=== PATIENT | female | born 1935 ===

== ENCOUNTER 2017-12-11 00:05 | Inpatient (IN) | payer MEDICARE, MEDICAID ==
--- NOTE | 2017-12-11 00:16 | C.PDOC ---
History Of Present Illness patient presents with chest pain and sob worsening over the last 5 days. Had returned from [facility] 2 months ago. Speaking in complete sentences. No f/c/n/v. Time Seen by Provider: 12/11/17 00:15 Chief Complaint (Nursing): Chest Pain History Per: Patient, Family History/Exam Limitations: no limitations Onset/Duration Of Symptoms: Days (5) Current Symptoms Are (Timing): Still Present Context: Other Severity: Moderate Pain Scale Rating Of: 4 Quality: Aching, Tightness Associated Symptoms: Dyspnea (mild). denies: Nausea Modifying Factors: None Exacerbating Factors: None Alleviating Factors: None Recent travel outside of the [place]: Yes ([facility] ) Additional History Per: Family Past Medical History Reviewed: Historical Data, Nursing Documentation, Vital Signs Vital Signs: Last Vital Signs Temp 98.4 F 12/11/17 00:15 Pulse 117 H 12/11/17 00:15 Resp 25 H 12/11/17 00:15 BP 155/91 H 12/11/17 00:15 Pulse Ox 93 L 12/11/17 00:15 Family History: States: No Known Family Hx Review Of Systems Constitutional: Negative for: Fever, Chills Eyes: Negative for: Redness ENT: Negative for: Throat Pain Cardiovascular: Positive for: Chest Pain, Orthopnea, Edema. Negative for: Palpitations, Light Headedness Respiratory: Positive for: Shortness of Breath, SOB with Excertion Gastrointestinal: Negative for: Nausea, Vomiting, Abdominal Pain Genitourinary: Negative for: Dysuria Musculoskeletal: Negative for: Back Pain Skin: Negative for: Rash Neurological: Negative for: Weakness Psych: Negative for: Anxiety Physical Exam - Physical Exam Appears: Non-toxic Skin: Warm, Dry Head: Normacephalic Eye(s): bilateral: Normal Inspection Oral Mucosa: Moist Neck: Supple Chest: Symmetrical Cardiovascular: Rhythm Regular (tachy) Respiratory: Decreased Breath Sounds, Rales (few at bases), Rhonchi, No Wheezing Gastrointestinal/Abdominal: Soft, No Tenderness, No Distention Back: Normal Inspection Extremity: Pedal Edema Extremity: Bilateral: Atraumatic, Normal Color And Temperature Pulses: Left Dorsalis Pedis: Normal, Right Dorsalis Pedis: Normal Neurological/Psych: Oriented x3 Gait: Steady ED Course And Treatment - Laboratory Results Result Diagrams: 12/11/17 00:48 12/11/17 00:48 ECG: Interpreted By Me, Viewed By Me ECG Rhythm: Sinus Rhythm (114), ST/T Changes (lat ischemic changes) Pulse Ox Interpretation: Normal - Radiology CXR: Interpreted by Me, Viewed By Me Disposition Discussed With Dr.: Pelon Ruff Comment: accepted hte pt onhis service and took over the care ta 1:32 AM Doctor Will See Patient In The: ED Counseled Patient/Family Regarding: Studies Performed, Diagnosis - Disposition Disposition: HOSPITALIZED Disposition Time: 00:15 Condition: GUARDED Forms: Compute (Japanese) - POA Present On Arrival: Poor Glycemic Control - Clinical Impression Clinical Impression: Chest pain, Congestive heart failure, Hyperglycemia, Pneumonia, Renal insufficiency Decision To Admit - Pt Status Changed To: Hospital Disposition Of: Inpatient - Admit Certification Admit to Inpatient:: After my assessment, the patient will require hospitalization for at least two midnights. This is because of the severity of symptoms shown, intensity of services needed, and/or the medical risk in this patient being treated as an outpatient. - InPatient: Physician Admission Certification: I certify that this patient requires 2 or more midnights of care for the following reason:: After my assessment, the patient will require hospitalization for at least two midnights. This is because of the severity of symptoms shown, intensity of services needed, and/or the medical risk in this patient being treated as an outpatient. - . Bed Request Type: Telemetry Admitting Physician: Pelon Ruff Patient Diagnosis: Chest pain, Congestive heart failure, Hyperglycemia, Pneumonia, Renal insufficiency
[2017-12-11] MEDS ORDERED: Aspirin 325 mg EC Tablets PO STA (00:25)
[2017-12-11 00:52] LABS: BASO % 0.2 % (0.0-2.0); EOS % 0.1 % (0.0-4.0); HEMOGLOBIN 11.4 g/dL (11.0-16.0); LYMPH # 0.8 K/uL (1.0-4.3); LYMPH % 11.3 % (20.0-40.0); MEAN CELL VOLUME 88.9 fL (81.0-99.0); MEAN CORPUSCULAR HEMOGLOBIN 29.8 pg (27.0-31.0); MEAN CORPUSCULAR HGB CONC 33.5 g/dL (33.0-37.0); MEAN PLATELET VOLUME 7.8 fL (7.2-11.7); MONO # 0.1 K/uL (0.0-0.8); MONO % 1.5 % (0.0-10.0); NEUT # 5.9 K/uL (1.8-7.0); NEUT % 86.9 % (50.0-75.0); RBC 3.83 Mil/uL (3.80-5.20); RED CELL DISTRIBUTION WIDTH 13.9 % (11.5-14.5); WHITE BLOOD COUNT 6.7 K/uL (4.8-10.8)
[2017-12-11 01:00] LABS: PROTHROMBIN TIME 11.3 SECONDS (9.7-12.2)
[2017-12-11 01:03] LABS: ALB/GLOB RATIO 1.1 (1.0-2.1); ALBUMIN 4.4 g/dL (3.5-5.0); CALCIUM 9.1 mg/dl (8.6-10.4)
[2017-12-11 01:15] LABS: TROPONIN I 0.102 ng/mL (0.00-0.120)
[2017-12-11] MEDS ORDERED: Piperacillin/Tazobact 3.375 gm 100 ML IVPB STA (01:28)
[2017-12-11] MEDS ORDERED: Enoxaparin 40 mg Syringe SC STA (01:29)
--- NOTE | 2017-12-11 01:33 | CP.PCM.HP ---
<Bri Lainez - Last Filed: 12/11/17 04:08> History of Present Illness - History of Present Illness History of Present Illness: Full Code Advanced Directive: denies POA: Grandson: Ward Lyon #[phone] CC: "lung pain" HPI: 82 year old female with past medical history of Hypothyroid; HTN; Gastritis ; Diverticulosis presents to the ER with lung pain. Patient states for the past 5 days she has had pain in her back that went to her lungs. She states the last couple of months she started to have shortness of breath at rest. She normally has shortness of breath on exertion but at rest is a new occurrence. She states she took Tylenol for her lung and back pain today with no relief. Patient saw PMD earlier today who gave her Aizthromycin 250mg and methylprednisolone pack but she did not start it because her breathing did not improve so she came to the ER. Later this evening she states she started having difficulty breathing so she came to the ER. She states she normally sleeps with 3 pillows as she cannot sleep flat because she will have difficulty breathing. She has chronic lower extremity swelling. She denies nausea, vomiting, fever, chills, cough, diarrhea, constipation or dysuria. PMD: Dr. Christianne Frausto Past Medical History: Hypothyroid; HTN; Gastritis; Diverticulosis Surgical History: Cholecystectomy; umbilical hernia repair; cysts removed from liver and ovary; renal stones removed Medications:gabapentin 100mg tid; Potassium cl ER 1 tab every 3 days; Levothyroxine 75mg AM; omega 3 1gm 2 caps BID; Trazadone 50mg HS prn; Valsartan/ HCTZ 160mg/25mg daily; Verapamil ER 120mg daily Allergies: NKDA Family History: brother - heart disease; dad passed of RI at the age of 84 Social History: lives with daughter; quit smoking 5 years ago; smoked for about 36 years/2-3 cigarettes per day; denies alcohol or illicit drug use Present on Admission - Present on Admission Any Indicators Present on Admission: No Review of Systems - Constitutional Constitutional: absent: Chills, Fever - EENT Eyes: absent: Blurred Vision, Change in Vision - Cardiovascular Cardiovascular: Chest Pain, Dyspnea, Dyspnea on Exertion, Leg Edema, Pedal Edema. absent: Lightheadedness, Palpitations - Respiratory Respiratory: Dyspnea, Dyspnea on Exertion - Gastrointestinal Gastrointestinal: absent: Constipation, Diarrhea, Nausea, Vomiting - Genitourinary Genitourinary: absent: Dysuria, Hematuria - Musculoskeletal Musculoskeletal: Back Pain. absent: Numbness, Tingling - Neurological Neurological: absent: Dizziness, Numbness, Headaches, Tingling Past Patient History - Infectious Disease Hx of Infectious Diseases: None - Past Social History Smoking Status: Never Smoked - CARDIAC Hx Hypertension: Yes - PULMONARY Hx Bronchitis: Yes - NEUROLOGICAL Hx Neurological Disorder: No - HEENT Hx HEENT Problems: No - RENAL Hx Chronic Kidney Disease: Yes Hx Kidney Stones: Yes - ENDOCRINE/METABOLIC Hx Hypothyroidism: Yes - GASTROINTESTINAL Hx Gall Bladder Disease: Yes - PSYCHIATRIC Hx Substance Use: No - SURGICAL HISTORY Hx Surgeries: Yes Hx Cholecystectomy: Yes Other/Comment: ovarian cyst removal - ANESTHESIA Hx Anesthesia: Yes Meds Allergies/Adverse Reactions: Allergies Allergy/AdvReac Type Severity Reaction Status Date / Time No Known Allergies Allergy Verified 12/11/17 00:23 Physical Exam - Constitutional Appears: In Acute Distress - Head Exam Head Exam: ATRAUMATIC, NORMAL INSPECTION - Eye Exam Eye Exam: EOMI, Normal appearance, PERRL Pupil Exam: NORMAL ACCOMODATION - ENT Exam ENT Exam: Mucous Membranes Dry - Respiratory Exam Respiratory Exam: Rales, Wheezes - Cardiovascular Exam Cardiovascular Exam: Tachycardia, +S1, +S2 - GI/Abdominal Exam GI & Abdominal Exam: Normal Bowel Sounds, Soft. absent: Tenderness - Extremities Exam Extremities exam: Positive for: pedal edema (+1 right foot to ankle edema ) - Neurological Exam Neurological exam: Alert, CN II-XII Intact, Oriented x3 - Psychiatric Exam Psychiatric exam: Normal Affect, Normal Mood - Skin Skin Exam: Normal Color Results - Vital Signs Recent Vital Signs: Last Vital Signs Temp 98.4 F 12/11/17 00:15 Pulse 117 H 12/11/17 00:15 Resp 25 H 12/11/17 00:15 BP 155/91 H 12/11/17 00:15 Pulse Ox 93 L 12/11/17 00:15 - Labs Result Diagrams: 12/11/17 00:48 12/11/17 00:48 Labs: Laboratory Results - last 24 hr 12/11/17 12/11/17 12/11/17 00:48 00:48 00:48 WBC 6.7 RBC 3.83 Hgb 11.4 Hct 34.1 MCV 88.9 MCH 29.8 MCHC 33.5 RDW 13.9 Plt Count 267 MPV 7.8 Neut % (Auto) 86.9 H Lymph % (Auto) 11.3 L [place] % (Auto) 1.5 Eos % (Auto) 0.1 Baso % (Auto) 0.2 Neut # (Auto) 5.9 Lymph # (Auto) 0.8 L [place] # (Auto) 0.1 Eos # (Auto) 0.0 Baso # (Auto) 0.0 PT 11.3 INR 1.0 APTT 34 Sodium 138 Potassium 4.1 Chloride 98 Carbon Dioxide 22 Anion Gap 21 H BUN 34 H Creatinine 1.4 H Est GFR ( Amer) 43 Est GFR (Non-Af Amer) 36 Random Glucose 299 H Calcium 9.1 Total Bilirubin 0.5 AST 111 H ALT 117 H Alkaline Phosphatase 120 Troponin I 0.1020 NT-Pro-B Natriuret Pep 5430 H Total Protein 8.4 H Albumin 4.4 Globulin 3.9 Albumin/Globulin Ratio 1.1 Lipase 113 Assessment & Plan - Assessment and Plan (Free Text) Assessment: Acute CHF exacerbation with SOB and chest pain - admitted to tele for 24hrs - daily weights - Head elevation at 45 degrees - Strict I/Os - f/u ECHO - Hold beta ghanshyam until compensation - Lasix 20mg IV q12h - Hold HCTZ - No DOC or ARB due to current acute renal insufficiency and therefore hold Valsartan - Hold Calcium channel ghanshyam until ECHO is done - -> hold Verapamil - In the mean time patient is on Isosorbide/Hydralazine 20/37.5mg daily q8h - Cardiology consult: Dr. Reece --> help appreciated Possible bilateral Pneumonia - Azithromycin 500mg daily (started 12/11/17) - Ceftriaxone 1gm IV q24h (started 12/11/17) - Repeat chest xray after loss of at least 5-6 lbs to see if antibiotics are really needed - f/u urine legionella; urine strep pneumo; mycoplasm; rapid influenza - f/u blood culture Acute Renal Insufficiency - Hold ARB/HCTZ - f/u renal US - Nephro Consult: Dr. Woodward --> help appreciated for further renal failure - f/u with PMD in the AM COPD Exacerbation - Solumedrol 125mg IV once - Solumedrol 60mg q8h starting at 6pm - Duonebs macey for 24 hrs followed by Duonebs PRN for shortness of breath Elevated Blood Glucose - possibly secondary to Gabapentin -hold gabapentin - f/u hA1c - f/u lipid panel - f/u TSH/free T4 - Accuchecks - Hypoglycemia Protocol - ISS - low dose Elevated LFTs - possibly secondary to Gabapentin -hold gabapentin - f/u HIV - f/u Hepatitis panel HTN - No DOC or ARB due to current acute renal insufficiency and therefore hold Valsartan - In the mean time patient is on Isosorbide/Hydralazine 20/37.5mg daily q8h HLD - f/u lipid panel - Continue omega 3 2gm po bid - add statin if DM confirmed Hypothyroid - Continue Levothyroxine 25meq daily - f/u TSH/free T4 Prophylaxis - heparin sc q8h - SCDs - no GI prophylaxis indicated - PT/OT eval for KIRK - Heart Healthy/2gm Na/Renal/Low carb diet Case discussed with Dr. Pelon Lainez PGY-2 <Pelon Ruff J - Last Filed: 12/11/17 06:56> Results - Vital Signs Recent Vital Signs: Last Vital Signs Temp 97.6 F 12/11/17 04:00 Pulse 87 12/11/17 04:00 Resp 20 12/11/17 04:00 BP 141/73 12/11/17 04:00 Pulse Ox 98 12/11/17 04:00 - Labs Result Diagrams: 12/11/17 00:48 12/11/17 00:48 Labs: Laboratory Results - last 24 hr 12/11/17 12/11/17 12/11/17 00:48 00:48 00:48 WBC 6.7 RBC 3.83 Hgb 11.4 Hct 34.1 MCV 88.9 MCH 29.8 MCHC 33.5 RDW 13.9 Plt Count 267 MPV 7.8 Neut % (Auto) 86.9 H Lymph % (Auto) 11.3 L [place] % (Auto) 1.5 Eos % (Auto) 0.1 Baso % (Auto) 0.2 Neut # (Auto) 5.9 Lymph # (Auto) 0.8 L [place] # (Auto) 0.1 Eos # (Auto) 0.0 Baso # (Auto) 0.0 PT 11.3 INR 1.0 APTT 34 Sodium 138 Potassium 4.1 Chloride 98 Carbon Dioxide 22 Anion Gap 21 H BUN 34 H Creatinine 1.4 H Est GFR ( Amer) 43 Est GFR (Non-Af Amer) 36 Random Glucose 299 H Calcium 9.1 Total Bilirubin 0.5 AST 111 H ALT 117 H Alkaline Phosphatase 120 Troponin I 0.1020 NT-Pro-B Natriuret Pep 5430 H Total Protein 8.4 H Albumin 4.4 Globulin 3.9 Albumin/Globulin Ratio 1.1 Lipase 113 Urine Color Urine Clarity Urine pH Ur Specific [place] Urine Protein Urine Glucose (UA) Urine Ketones Urine Blood Urine Nitrate Urine Bilirubin Urine Urobilinogen Ur Leukocyte Esterase Urine WBC (Auto) Influenza Typ A,B (EIA) 12/11/17 12/11/17 01:46 03:23 WBC RBC Hgb Hct MCV MCH MCHC RDW Plt Count MPV Neut % (Auto) Lymph % (Auto) [place] % (Auto) Eos % (Auto) Baso % (Auto) Neut # (Auto) Lymph # (Auto) [place] # (Auto) Eos # (Auto) Baso # (Auto) PT INR APTT Sodium Potassium Chloride Carbon Dioxide Anion Gap BUN Creatinine Est GFR ( Amer) Est GFR (Non-Af Amer) Random Glucose Calcium Total Bilirubin AST ALT Alkaline Phosphatase Troponin I NT-Pro-B Natriuret Pep Total Protein Albumin Globulin Albumin/Globulin Ratio Lipase Urine Color Straw Urine Clarity Clear Urine pH 6.0 Ur Specific [place] 1.009 Urine Protein Negative Urine Glucose (UA) 2+ H Urine Ketones Negative Urine Blood Negative Urine Nitrate Negative Urine Bilirubin Negative Urine Urobilinogen Normal Ur Leukocyte Esterase Neg Urine WBC (Auto) < 1 Influenza Typ A,B (EIA) Negative for flu a/b Attending/Attestation - Attestation I have personally seen and examined this patient.: Yes I have fully participated in the care of the patient.: Yes I have reviewed all pertinent clinical information: Yes Notes (Text): 12/11/17 06:50 Patient was seen and examined shortly after resident Dr. Renetta Lainez. History, Physical, Assessment and Plan and Orders were gone over in detail with Dr. Lainez. Also on Exam: Cardio: NO JVD, NO Hepatojuglar Reflux Respiratory: Course inspiratory rales from bilateral mid lung mendoza to bibasilar area Ext: 1+ Pitting Edema present from feet to just below bilateral tibial tuberosities Spoke with Daughter Charmaine with help of Nurse on [address] who helped to translate Kenyan: Patient has never seen a Hearing Specialist or School Inspector. Medicine Team please speak with patient's PMD office in morning when his office opens to see if there has ever been any Cardiology (Charmaine stated that patient was seen by unspecified [employer] Servicer before he trip to [facility]), Pulmonology ( spirometry?), or Nephrology (Renal U/S? last documented GFR?) workup in the past. Pelon Ruff D.O.
[2017-12-11] MEDS ORDERED: Glucagon Recombinant 1 mg Inj IM PRN (02:26)
[2017-12-11] MEDS ORDERED: Dextrose 50% SYRINGE Inj (50 ml) IV PRN (02:26)
[2017-12-11 03:09] LABS: INFLUENZA A B NEGATIVE FOR FLU A/B (NEGATIVE)
[2017-12-11 03:28] LABS: URINE BILIRUBIN NEGATIVE (NEGATIVE); URINE BLOOD NEGATIVE (NEGATIVE); URINE CLARITY Clear (Clear); URINE COLOR Straw (YELLOW); URINE GLUCOSE (UA) 2+ mg/dL (Normal); URINE LEUKOCYTE ESTERASE NEG Leu/uL (Negative); URINE PROTEIN NEGATIVE (NEGATIVE); URINE UROBILINOGEN NORMAL mg/dL (0.2-1.0)
[2017-12-11] MEDS ORDERED: Albuterol-Ipratrop 3 mg / 0.5 (3 ml) UD INH SCH (04:00)
[2017-12-11] MEDS: Levothyroxine 75 MCG TAB PO SCH (05:46)
[2017-12-11 08:01] LABS: BASO % 0.3 % (0.0-2.0); LYMPH % 9.9 % (20.0-40.0); MEAN CORPUSCULAR HEMOGLOBIN 29.7 pg (27.0-31.0); MEAN CORPUSCULAR HGB CONC 33.7 g/dL (33.0-37.0); MEAN PLATELET VOLUME 7.7 fL (7.2-11.7); MONO # 0.3 K/uL (0.0-0.8); MONO % 3.1 % (0.0-10.0); NEUT % 86.7 % (50.0-75.0); PLATELET COUNT 278 K/uL (130-400); RBC 3.72 Mil/uL (3.80-5.20); RED CELL DISTRIBUTION WIDTH 14.3 % (11.5-14.5); WHITE BLOOD COUNT 10.4 K/uL (4.8-10.8)
[2017-12-11] MEDS: (Novolin R) Insulin Human Regular 100 units/ml vial SC SCH ×4 (08:27→21:38)
[2017-12-11 08:28] LABS: ALB/GLOB RATIO 1.2 (1.0-2.1); ALBUMIN 4.3 g/dL (3.5-5.0); CALCIUM 8.8 mg/dl (8.6-10.4); TROPONIN I 1.69 ng/mL (0.00-0.120)
--- NOTE | 2017-12-11 08:32 | RAD ---
PROCEDURE: CHEST RADIOGRAPH, 1 VIEW HISTORY: chest pain COMPARISON: None available. FINDINGS: LUNGS: The lungs are well inflated. There is moderate pulmonary venous congestion. There is also mild interstitial pulmonary edema. PLEURA: No pneumothorax or pleural fluid seen. CARDIOVASCULAR: The heart is enlarged. Atherosclerotic aortic arch calcifications are present. OSSEOUS STRUCTURES: No significant abnormalities. VISUALIZED UPPER ABDOMEN: Normal. OTHER FINDINGS: None. IMPRESSION: Findings are most compatible with mild congestive heart failure.
[2017-12-11 08:43] LABS: HEPATITIS B SURFACE AG Negative (NEGATIVE)
[2017-12-11 08:48] LABS: HEPATITIS A IGM NEGATIVE (NEGATIVE); HEPATITIS B CORE AB NEGATIVE (NEGATIVE)
[2017-12-11 08:55] LABS: MONOCYTE 2 % (0-10); TOTAL CELLS COUNTED 100
[2017-12-11 08:56] LABS: ANISOCYTOSIS SLIGHT; GIANT PLATELETS PRESENT; HYPOCHROMIC SLIGHT; LYMPHOCYTE 9 % (20-40); NEUTROPHIL 88 % (50-75); PLATELET ESTIMATE NORMAL (NORMAL); POIKILOCYTOSIS SLIGHT
[2017-12-11 09:00] LABS: HEPATITIS C ANTIBODY NEGATIVE (NEGATIVE)
[2017-12-11] MEDS: Saccharomyces Boulardi 250 mg Cap PO SCH ×2 (09:58→17:29)
[2017-12-11] MEDS: Omega-3-Acid Ethyl Esters 1 GM Cap PO SCH ×2 (09:59→17:29)
--- NOTE | 2017-12-11 11:05 | CARD ---
APPROVED REPORT EKG Measurement Heart [id number] <Conclusion> Sinus tachycardia ST & T wave abnormality, consider lateral ischemia Abnormal ECG
[2017-12-11] MEDS: Azithromycin 500 MG in Sodium Chloride 0.9% 250 ML IVPB SCH (11:07)
[2017-12-11] MEDS: Heparin25000 units/250ml 1/2NS 25,000 UNITS/250 ML BAG IV PRN (12:08)
--- NOTE | 2017-12-11 15:58 | US ---
PROCEDURE: Ultrasound of the Kidneys HISTORY: Stage 3 CKD COMPARISON: None available. TECHNIQUE: Sonogram of the kidneys. FINDINGS: RIGHT KIDNEY: Measures: 9.1 cm. Normal in size, contour with mild diffuse increased echogenicity. No stone, solid mass lesion or hydronephrosis visualized. LEFT KIDNEY: Measures: 8.6 cm. Normal in size, contour with mild diffuse increased echogenicity. No stone, solid mass lesion or hydronephrosis visualized. OTHER FINDINGS: None. IMPRESSION: Evidence of medical renal disease. No hydronephrosis or nephrolithiasis.
[2017-12-11 16:25] LABS: LEGIONELLA AG URINE NEGATIVE (NEGATIVE)
[2017-12-11 16:49] LABS: N MENINGITIS ACY/W135 NEGATIVE (NEGATIVE); N MENINGITIS B/ECOLI K1 NEGATIVE (NEGATIVE); STREP PNEUMONIAE NEGATIVE (NEGATIVE); STREPTOCOCCUS B NEGATIVE (NEGATIVE)
[2017-12-11 20:07] LABS: CREATININE, RANDOM URINE 76.6 mg/dL
--- NOTE | 2017-12-11 20:07 | CP.PCM.PN ---
<Neil Schwarz E - Last Filed: 12/11/17 20:04> Subjective - Date & Time of Evaluation Date of Evaluation: 12/11/17 Time of Evaluation: 09:15 - Subjective Subjective: Medicine progress note (Dr. Barbour's service) Patient was seen and examined at bedside. Patient reports that she is doing well. Patient admits to mild shortness of breath but denies chest pain, palpitations, diaphoresis, nausea, vomiting, numbness/tingling of the extremities. Objective - Vital Signs/Intake and Output Vital Signs (last 24 hours): Temp Pulse Resp BP Pulse Ox 97.6 F 80 20 106/59 L 100 12/11/17 15:15 12/11/17 15:15 12/11/17 15:15 12/11/17 15:15 12/11/17 15:15 - Medications Medications: Current Medications Albuterol/Ipratropium (Duoneb 3 Mg/0.5 Mg (3 Ml) Ud) 3 ml INH RQ6 PRN PRN Reason: Shortness of Breath Aspirin (Ecotrin) 81 mg PO DAILY ANGELINE Clopidogrel Bisulfate (Plavix) 75 mg PO DAILY [facility] Dextrose (Dextrose 50% Inj) 0 ml IV STAT PRN; Protocol PRN Reason: Hypoglycemia Protocol Dextrose (Glutose 15) 0 gm PO ONCE PRN; Protocol PRN Reason: Hypoglycemia Protocol Furosemide (Lasix) 20 mg IVP Q12H [facility] Last Admin: 12/11/17 13:04 Dose: 20 mg Glucagon (Glucagen Diagnostic Kit) 0 mg IM STAT PRN; Protocol PRN Reason: Hypoglycemia Protocol Azithromycin 500 mg/ Sodium (Chloride) 250 mls @ 250 mls/hr IVPB DAILY ANGELINE PRN Reason: Protocol Last Admin: 12/11/17 11:07 Dose: 250 mls/hr Ceftriaxone Sodium 1 gm/ (Sodium Chloride) 100 mls @ 100 mls/hr IVPB DAILY ANGELINE PRN Reason: Protocol Last Admin: 12/11/17 09:58 Dose: 100 mls/hr Dextrose (Dextrose 5% In Water 1000 Ml) 1,000 mls @ 0 mls/hr IV .Q0M PRN; Protocol; Per Protocol PRN Reason: Hypoglycemia Protocol Heparin Sodium/Sodium Chloride (Heparin 44355 Units/250ml 1/2 Normal Saline) 25 ,000 units in 250 mls @ 8.165 mls/hr IV .Q24H PRN; Protocol; 12 UNITS/KG/HR PRN Reason: PROTOCOL Last Admin: 12/11/17 12:08 Dose: 12 units/kg/hr, 8.165 mls/hr Insulin Human Regular (Novolin R) 0 unit SC ACHS [facility] PRN Reason: Protocol Last Admin: 12/11/17 17:29 Dose: 2 unit Isosorbide Dinitrate (Isordil) 20 mg PO Q8H [facility] Last Admin: 12/11/17 17:47 Dose: 20 mg Levothyroxine Sodium (Synthroid) 75 mcg PO DAILY@0630 [facility] Last Admin: 12/11/17 05:46 Dose: 75 mcg Metoprolol Tartrate (Lopressor) 12.5 mg PO BID [facility] Last Admin: 12/11/17 17:29 Dose: 12.5 mg [id number] Ethyl Esters (Lovaza) 2 gm PO BID [facility] Last Admin: 12/11/17 17:29 Dose: 2 gm Pneumococcal Polyvalent Vaccine (Pneumovax 23 Vaccine) 0.5 ml IM .ONCE ONE Stop: 12/13/17 14:01 Rosuvastatin Calcium (Crestor) 20 mg PO [facility] Saccharomyces Boulardii (Florastor) 250 mg PO BID [facility] Last Admin: 12/11/17 17:29 Dose: 250 mg - Labs Labs: 12/11/17 07:48 12/11/17 07:48 PT 11.3 SECONDS (9.7-12.2) 12/11/17 00:48 INR 1.0 12/11/17 00:48 APTT 92 SECONDS (21-34) H D 12/11/17 19:03 - Constitutional Appears: Well, No Acute Distress - Head Exam Head Exam: ATRAUMATIC - Eye Exam Eye Exam: EOMI - ENT Exam ENT Exam: Mucous Membranes Moist - Respiratory Exam Respiratory Exam: Clear to Ausculation Bilateral, NORMAL BREATHING PATTERN. absent: Prolonged Expiratory Phase, Rhonchi, Wheezes, Respiratory Distress - Cardiovascular Exam Cardiovascular Exam: REGULAR RHYTHM, +S1, +S2. absent: Murmur - GI/Abdominal Exam GI & Abdominal Exam: Soft, Normal Bowel Sounds. absent: Distended, Firm, Guarding, Rigid, Tenderness - Extremities Exam Extremities Exam: Normal Inspection. absent: Calf Tenderness, Pedal Edema - Neurological Exam Neurological Exam: Alert, Awake, Oriented x3 - Psychiatric Exam Psychiatric exam: Normal Affect - Skin Skin Exam: Normal Color Assessment and Plan (1) NSTEMI (non-ST elevated myocardial infarction) Assessment & Plan: Consult, Assistant Softball Coach, Dr. Reece---> Help appreciated * Management as per recommendation * Plans for cardiac catherization, 12/14/17 Labs/Imaging: BLANK positive X2, down trendin.2100--> 1.6900-->1.2100 EKG: Lateral wall ischemia ( T-wave abnormalities) HgbA1C: 6.2 Lipid Panel: TGL:131, Chol:205, LDL: 127 and HDL: 61 TSH: 2.74 and Free T4: 1.10 Awaiting echocardiogram Medications: * Plavix 75mg PO daily * Heparin Drip * ASA 81mg PO daily * Crestor 20mg PO HS * Lopressor 12.5mg PO BID * Isosorbide Dinitrate 20mg PO Q8H Status: Acute (2) Congestive heart failure Assessment & Plan: BNP on admission: 5430 Chest X-ray: Mild congestive heart failure * Lasix 20mg PO BID Status: Acute (3) Pneumonia Assessment & Plan: Possible underlying pneumonia - urine legionella; urine strep pneumo; mycoplasm; rapid influenza: Negative - Azithromycin 500mg daily (started 12/11/17) - Ceftriaxone 1gm IV q24h (started 12/11/17) - Florastor 250mg PO BID - Repeat chest xray after loss of at least 5-6 lbs to see if antibiotics are really needed, f/u repeat Chest X-ray. if repeat Chest X-ray is not suggestive of pneumonia, discontinue antibiotics Status: Acute (4) Renal insufficiency Assessment & Plan: - Nephro Consult: Dr. Woodward --> help appreciated for further renal failure Imaging/Labs BUN/Cr: Down trending, continue to monitor with labs Renal US: Evidence of medical renal disease. No hydronephrosis or nephrolithiasis. Status: Acute (5) Glucose intolerance (impaired glucose tolerance) Assessment & Plan: HbgA1C: 6.2 Accuchecks ISS low dose Heart healthy diet Status: Acute (6) Hypothyroidism Assessment & Plan: TSH: 2.74 and Free T4: 1.10 Continue home medication: Levothyroxine 25meq daily Status: Acute (7) Hypertension Assessment & Plan: * Lopressor 12.5mg PO BID * Isosorbide Dinitrate 20mg PO Q8H Status: Acute (8) Hyperlipidemia Assessment & Plan: Lipid Panel: TGL:131, Chol:205, LDL: 127 and HDL: 61 - Continue omega-3 2gm po bid - Crestor 20mg PO HS Status: Acute (9) Prophylactic measure Assessment & Plan: - DVT: Heparin Drip - PT/OT eval for KIRK - Heart Healthy/2gm Na/Renal/Low carb diet All plans and management discussed with Dr. Barbour Status: Acute <Margaret Barbour - Last Filed: 12/12/17 16:45> Objective - Vital Signs/Intake and Output Vital Signs (last 24 hours): Temp Pulse Resp BP Pulse Ox 98.0 F 73 18 109/53 L 100 12/12/17 15:00 12/12/17 15:00 12/12/17 15:00 12/12/17 15:00 12/12/17 15:00 - Medications Medications: Current Medications Acetylcysteine (Acetylcysteine 20%) 6 ml PO Q12H [facility] Stop: 12/14/17 10:01 Albuterol/Ipratropium (Duoneb 3 Mg/0.5 Mg (3 Ml) Ud) 3 ml INH RQ6 PRN PRN Reason: Shortness of Breath Last Admin: 12/12/17 07:33 Dose: 3 ml Aspirin (Ecotrin) 81 mg PO DAILY [facility] Last Admin: 12/12/17 10:44 Dose: 81 mg Clopidogrel Bisulfate (Plavix) 75 mg PO DAILY ANGELINE Last Admin: 12/12/17 10:44 Dose: 75 mg Dextrose (Dextrose 50% Inj) 0 ml IV STAT PRN; Protocol PRN Reason: Hypoglycemia Protocol Dextrose (Glutose 15) 0 gm PO ONCE PRN; Protocol PRN Reason: Hypoglycemia Protocol Furosemide (Lasix) 20 mg IVP Q12H ANGELINE Last Admin: 12/12/17 13:12 Dose: 20 mg Glucagon (Glucagen Diagnostic Kit) 0 mg IM STAT PRN; Protocol PRN Reason: Hypoglycemia Protocol Azithromycin 500 mg/ Sodium (Chloride) 250 mls @ 250 mls/hr IVPB DAILY ANGELINE PRN Reason: Protocol Last Admin: 12/12/17 10:44 Dose: 250 mls/hr Ceftriaxone Sodium 1 gm/ (Sodium Chloride) 100 mls @ 100 mls/hr IVPB DAILY [facility] PRN Reason: Protocol Last Admin: 12/12/17 09:06 Dose: 100 mls/hr Dextrose (Dextrose 5% In Water 1000 Ml) 1,000 mls @ 0 mls/hr IV .Q0M PRN; Protocol; Per Protocol PRN Reason: Hypoglycemia Protocol Heparin Sodium/Sodium Chloride (Heparin 73799 Units/250ml 1/2 Normal Saline) 25 ,000 units in 250 mls @ 8.165 mls/hr IV .Q24H PRN; Protocol; 12 UNITS/KG/HR PRN Reason: PROTOCOL Last Admin: 12/11/17 12:08 Dose: 12 units/kg/hr, 8.165 mls/hr Insulin Human Regular (Novolin R) 0 unit SC ACHS [facility] PRN Reason: Protocol Last Admin: 12/12/17 13:11 Dose: 2 unit Isosorbide Dinitrate (Isordil) 20 mg PO Q8H [facility] Last Admin: 12/12/17 10:44 Dose: 20 mg Levothyroxine Sodium (Synthroid) 75 mcg PO DAILY@0630 [facility] Last Admin: 12/12/17 07:04 Dose: 75 mcg Metoprolol Tartrate (Lopressor) 12.5 mg PO BID [facility] Last Admin: 12/12/17 10:44 Dose: 12.5 mg [id number] Ethyl Esters (Lovaza) 2 gm PO BID [facility] Last Admin: 12/12/17 10:43 Dose: 2 gm Pneumococcal Polyvalent Vaccine (Pneumovax 23 Vaccine) 0.5 ml IM .ONCE ONE Stop: 12/13/17 14:01 Rosuvastatin Calcium (Crestor) 20 mg PO [facility] Last Admin: 12/11/17 21:38 Dose: 20 mg Saccharomyces Boulardii (Florastor) 250 mg PO BID [facility] Last Admin: 12/12/17 10:44 Dose: 250 mg - Labs Labs: 12/12/17 08:41 12/12/17 08:41 PT 11.3 SECONDS (9.7-12.2) 12/11/17 00:48 INR 1.0 12/11/17 00:48 APTT 94 SECONDS (21-34) H D 12/12/17 08:41 Attending/Attestation - Attestation I have personally seen and examined this patient.: Yes I have fully participated in the care of the patient.: Yes I have reviewed all pertinent clinical information, including history, physical exam and plan: Yes Notes (Text): Seen and examined by me 1.NSTMI 2.CHF-(Follow echo) 3.Pulmonary edema 4.Renal failure(Unknown acute or chronic) 5.Hypothyroidism 6.Hypertension I agree with the resident's documentation of the assessment and the plan
--- NOTE | 2017-12-11 20:15 | CP.PCM.CON ---
History of Present Illness - History of Present Illness History of Present Illness: reason for consultation: long history of smoking/shortness of breath 82-year-old female with long history of smoking quit 5yrs ago, hypertension, hypothyroidism, gastritis presented to emergency room with shortness of breath and chest pain. Patient states her breathing problem started while visiting [facility], where she was treated for generalized swelling and fluid in the lungs. Chest x-ray done in the emergency room consistent with venous congestion and found to have elevated troponins. Patient started on IV heparin and on antibiotics Past Medical History: Hypothyroid; HTN; Gastritis; Diverticulosis Surgical History: Cholecystectomy; umbilical hernia repair; cysts removed from liver and ovary; renal stones removed Medications:gabapentin 100mg tid; Potassium cl ER 1 tab every 3 days; Levothyroxine 75mg AM; omega 3 1gm 2 caps BID; Trazadone 50mg HS prn; Valsartan/ HCTZ 160mg/25mg daily; Verapamil ER 120mg daily Allergies: NKDA Family History: brother - heart disease; dad passed of [place] at the age of 84 Social History: lives with daughter; quit smoking 5 years ago; smoked for about 36 years/2-3 cigarettes per day; denies alcohol or illicit drug use Review of Systems - Review of Systems All systems: reviewed and no additional remarkable complaints except (shortness of breath and chest pain) Past Patient History - Infectious Disease Hx of Infectious Diseases: None - Past Medical History & Family History Past Medical History?: Yes - Past Social History Smoking Status: Former Smoker - CARDIAC Hx Hypertension: Yes - PULMONARY Hx Bronchitis: Yes - NEUROLOGICAL Hx Neurological Disorder: No - HEENT Hx HEENT Problems: No - RENAL Hx Chronic Kidney Disease: Yes Hx Kidney Stones: Yes - ENDOCRINE/METABOLIC Hx Hypothyroidism: Yes - MUSCULOSKELETAL/RHEUMATOLOGICAL Hx Falls: Yes (cane at home) - GASTROINTESTINAL Hx Gall Bladder Disease: Yes - PSYCHIATRIC Hx Substance Use: No - SURGICAL HISTORY Hx Surgeries: Yes Hx Cholecystectomy: Yes Other/Comment: ovarian cyst removal - ANESTHESIA Hx Anesthesia: Yes Meds Allergies/Adverse Reactions: Allergies Allergy/AdvReac Type Severity Reaction Status Date / Time No Known Allergies Allergy Verified 12/11/17 00:23 - Medications Medications: Current Medications Albuterol/Ipratropium (Duoneb 3 Mg/0.5 Mg (3 Ml) Ud) 3 ml INH RQ6 PRN PRN Reason: Shortness of Breath Aspirin (Ecotrin) 81 mg PO DAILY [facility] Clopidogrel Bisulfate (Plavix) 75 mg PO DAILY [facility] Dextrose (Dextrose 50% Inj) 0 ml IV STAT PRN; Protocol PRN Reason: Hypoglycemia Protocol Dextrose (Glutose 15) 0 gm PO ONCE PRN; Protocol PRN Reason: Hypoglycemia Protocol Furosemide (Lasix) 20 mg IVP Q12H [facility] Last Admin: 12/11/17 13:04 Dose: 20 mg Glucagon (Glucagen Diagnostic Kit) 0 mg IM STAT PRN; Protocol PRN Reason: Hypoglycemia Protocol Azithromycin 500 mg/ Sodium (Chloride) 250 mls @ 250 mls/hr IVPB DAILY [facility] PRN Reason: Protocol Last Admin: 12/11/17 11:07 Dose: 250 mls/hr Ceftriaxone Sodium 1 gm/ (Sodium Chloride) 100 mls @ 100 mls/hr IVPB DAILY [facility] PRN Reason: Protocol Last Admin: 12/11/17 09:58 Dose: 100 mls/hr Dextrose (Dextrose 5% In Water 1000 Ml) 1,000 mls @ 0 mls/hr IV .Q0M PRN; Protocol; Per Protocol PRN Reason: Hypoglycemia Protocol Heparin Sodium/Sodium Chloride (Heparin 08770 Units/250ml 1/2 Normal Saline) 25 ,000 units in 250 mls @ 8.165 mls/hr IV .Q24H PRN; Protocol; 12 UNITS/KG/HR PRN Reason: PROTOCOL Last Admin: 12/11/17 12:08 Dose: 12 units/kg/hr, 8.165 mls/hr Insulin Human Regular (Novolin R) 0 unit SC ACHS [facility] PRN Reason: Protocol Last Admin: 12/11/17 17:29 Dose: 2 unit Isosorbide Dinitrate (Isordil) 20 mg PO Q8H [facility] Last Admin: 12/11/17 17:47 Dose: 20 mg Levothyroxine Sodium (Synthroid) 75 mcg PO DAILY@0630 [facility] Last Admin: 12/11/17 05:46 Dose: 75 mcg Metoprolol Tartrate (Lopressor) 12.5 mg PO BID [facility] Last Admin: 12/11/17 17:29 Dose: 12.5 mg [id number] Ethyl Esters (Lovaza) 2 gm PO BID [facility] Last Admin: 12/11/17 17:29 Dose: 2 gm Pneumococcal Polyvalent Vaccine (Pneumovax 23 Vaccine) 0.5 ml IM .ONCE ONE Stop: 12/13/17 14:01 Rosuvastatin Calcium (Crestor) 20 mg PO HS [facility] Saccharomyces Boulardii (Florastor) 250 mg PO BID [facility] Last Admin: 12/11/17 17:29 Dose: 250 mg Physical Exam - Head Exam Head Exam: ATRAUMATIC, NORMOCEPHALIC - Eye Exam Eye Exam: Normal appearance - ENT Exam ENT Exam: Mucous Membranes Moist - Neck Exam Neck exam: Positive for: Normal Inspection - Respiratory Exam Respiratory Exam: Rales - Cardiovascular Exam Cardiovascular Exam: REGULAR RHYTHM - GI/Abdominal Exam GI & Abdominal Exam: Normal Bowel Sounds, Soft - Extremities Exam Extremities exam: Positive for: normal inspection - Neurological Exam Neurological exam: Alert, Oriented x3 Results - Vital Signs Recent Vital Signs: Last Vital Signs Temp 97.6 F 12/11/17 15:15 Pulse 80 12/11/17 15:15 Resp 20 12/11/17 15:15 BP 106/59 L 12/11/17 15:15 Pulse Ox 100 12/11/17 15:15 - Labs Result Diagrams: 12/11/17 07:48 12/11/17 07:48 Labs: Laboratory Results - last 24 hr 12/11/17 12/11/17 12/11/17 00:48 00:48 00:48 WBC 6.7 RBC 3.83 Hgb 11.4 Hct 34.1 MCV 88.9 MCH 29.8 MCHC 33.5 RDW 13.9 Plt Count 267 MPV 7.8 Neut % (Auto) 86.9 H Lymph % (Auto) 11.3 L Faulkner % (Auto) 1.5 Eos % (Auto) 0.1 Baso % (Auto) 0.2 Neut # (Auto) 5.9 Lymph # (Auto) 0.8 L Faulkner # (Auto) 0.1 Eos # (Auto) 0.0 Baso # (Auto) 0.0 Neutrophils % (Manual) Lymphocytes % (Manual) Monocytes % (Manual) Platelet Estimate Giant Platelets Hypochromasia (manual) Poikilocytosis (manual Anisocytosis (manual) PT 11.3 INR 1.0 APTT 34 Sodium 138 Potassium 4.1 Chloride 98 Carbon Dioxide 22 Anion Gap 21 H BUN 34 H Creatinine 1.4 H Est GFR ( Amer) 43 Est GFR (Non-Af Amer) 36 POC Glucose (mg/dL) Random Glucose 299 H Hemoglobin A1c Calcium 9.1 Phosphorus Magnesium Total Bilirubin 0.5 AST 111 H ALT 117 H Alkaline Phosphatase 120 Troponin I 0.1020 NT-Pro-B Natriuret Pep 5430 H Total Protein 8.4 H Albumin 4.4 Globulin 3.9 Albumin/Globulin Ratio 1.1 Triglycerides Cholesterol LDL Cholesterol Direct HDL Cholesterol Lipase 113 Free T4 TSH 3rd Generation Urine Color Urine Clarity Urine pH Ur Specific Alvin Urine Protein Urine Glucose (UA) Urine Ketones Urine Blood Urine Nitrate Urine Bilirubin Urine Urobilinogen Ur Leukocyte Esterase Urine WBC (Auto) Ur Random Creatinine Ur Random Sodium Hepatitis A IgM Ab Hep Bs Antigen Hep B Core IgM Ab Hepatitis C Antibody Influenza Typ A,B (EIA) H.influenzae Type B Ag Ur L.pneumophila Ag N.meningitidis ACY/W135 N.meningi B/E.coli K1 Ag Group B Strep Antigen S. pneumoniae Antigen 12/11/17 12/11/17 12/11/17 01:46 03:23 06:34 WBC RBC Hgb Hct MCV MCH MCHC RDW Plt Count MPV Neut % (Auto) Lymph % (Auto) Faulkner % (Auto) Eos % (Auto) Baso % (Auto) Neut # (Auto) Lymph # (Auto) Faulkner # (Auto) Eos # (Auto) Baso # (Auto) Neutrophils % (Manual) Lymphocytes % (Manual) Monocytes % (Manual) Platelet Estimate Giant Platelets Hypochromasia (manual) Poikilocytosis (manual Anisocytosis (manual) PT INR APTT Sodium Potassium Chloride Carbon Dioxide Anion Gap BUN Creatinine Est GFR ( Amer) Est GFR (Non-Af Amer) POC Glucose (mg/dL) 164 H Random Glucose Hemoglobin A1c Calcium Phosphorus Magnesium Total Bilirubin AST ALT Alkaline Phosphatase Troponin I NT-Pro-B Natriuret Pep Total Protein Albumin Globulin Albumin/Globulin Ratio Triglycerides Cholesterol LDL Cholesterol Direct HDL Cholesterol Lipase Free T4 TSH 3rd Generation Urine Color Straw Urine Clarity Clear Urine pH 6.0 Ur Specific Alvin 1.009 Urine Protein Negative Urine Glucose (UA) 2+ H Urine Ketones Negative Urine Blood Negative Urine Nitrate Negative Urine Bilirubin Negative Urine Urobilinogen Normal Ur Leukocyte Esterase Neg Urine WBC (Auto) < 1 Ur Random Creatinine Ur Random Sodium Hepatitis A IgM Ab Hep Bs Antigen Hep B Core IgM Ab Hepatitis C Antibody Influenza Typ A,B (EIA) Negative for flu a/b H.influenzae Type B Ag Negative Ur L.pneumophila Ag Negative N.meningitidis ACY/W135 Negative N.meningi B/E.coli K1 Ag Negative Group B Strep Antigen Negative S. pneumoniae Antigen Negative 12/11/17 12/11/17 12/11/17 07:48 07:48 07:48 WBC 10.4 D RBC 3.72 L Hgb 11.0 Hct 32.7 L MCV 88.0 MCH 29.7 MCHC 33.7 RDW 14.3 Plt Count 278 MPV 7.7 Neut % (Auto) 86.7 H Lymph % (Auto) 9.9 L Faulkner % (Auto) 3.1 Eos % (Auto) 0.0 Baso % (Auto) 0.3 Neut # (Auto) 9.0 H Lymph # (Auto) 1.0 Faulkner # (Auto) 0.3 Eos # (Auto) 0.0 Baso # (Auto) 0.0 Neutrophils % (Manual) 88 H Lymphocytes % (Manual) 9 L Monocytes % (Manual) 2 Platelet Estimate Normal Giant Platelets Present Hypochromasia (manual) Slight Poikilocytosis (manual Slight Anisocytosis (manual) Slight PT INR APTT Sodium 137 Potassium 3.7 Chloride 101 Carbon Dioxide 24 Anion Gap 17 BUN 31 H Creatinine 1.3 H Est GFR ( Amer) 47 Est GFR (Non-Af Amer) 39 POC Glucose (mg/dL) Random Glucose 180 H Hemoglobin A1c 6.2 Calcium 8.8 Phosphorus 2.6 Magnesium 2.1 Total Bilirubin 0.6 AST 84 H D ALT 115 H Alkaline Phosphatase 92 Troponin I 1.6900 H* NT-Pro-B Natriuret Pep Total Protein 8.0 Albumin 4.3 Globulin 3.7 Albumin/Globulin Ratio 1.2 Triglycerides 131 Cholesterol 205 H LDL Cholesterol Direct 127 HDL Cholesterol 61 Lipase Free T4 TSH 3rd Generation 2.74 Urine Color Urine Clarity Urine pH Ur Specific Alvin Urine Protein Urine Glucose (UA) Urine Ketones Urine Blood Urine Nitrate Urine Bilirubin Urine Urobilinogen Ur Leukocyte Esterase Urine WBC (Auto) Ur Random Creatinine Ur Random Sodium Hepatitis A IgM Ab Hep Bs Antigen Hep B Core IgM Ab Hepatitis C Antibody Influenza Typ A,B (EIA) H.influenzae Type B Ag Ur L.pneumophila Ag N.meningitidis ACY/W135 N.meningi B/E.coli K1 Ag Group B Strep Antigen S. pneumoniae Antigen 12/11/17 12/11/17 12/11/17 07:48 07:48 11:22 WBC RBC Hgb Hct MCV MCH MCHC RDW Plt Count MPV Neut % (Auto) Lymph % (Auto) Faulkner % (Auto) Eos % (Auto) Baso % (Auto) Neut # (Auto) Lymph # (Auto) Faulkner # (Auto) Eos # (Auto) Baso # (Auto) Neutrophils % (Manual) Lymphocytes % (Manual) Monocytes % (Manual) Platelet Estimate Giant Platelets Hypochromasia (manual) Poikilocytosis (manual Anisocytosis (manual) PT INR APTT 39 H D Sodium Potassium Chloride Carbon Dioxide Anion Gap BUN Creatinine Est GFR ( Amer) Est GFR (Non-Af Amer) POC Glucose (mg/dL) Random Glucose Hemoglobin A1c Calcium Phosphorus Magnesium Total Bilirubin AST ALT Alkaline Phosphatase Troponin I NT-Pro-B Natriuret Pep Total Protein Albumin Globulin Albumin/Globulin Ratio Triglycerides Cholesterol LDL Cholesterol Direct HDL Cholesterol Lipase Free T4 1.10 TSH 3rd Generation Urine Color Urine Clarity Urine pH Ur Specific Alvin Urine Protein Urine Glucose (UA) Urine Ketones Urine Blood Urine Nitrate Urine Bilirubin Urine Urobilinogen Ur Leukocyte Esterase Urine WBC (Auto) Ur Random Creatinine Ur Random Sodium Hepatitis A IgM Ab Negative Hep Bs Antigen Negative Hep B Core IgM Ab Negative Hepatitis C Antibody Negative Influenza Typ A,B (EIA) H.influenzae Type B Ag Ur L.pneumophila Ag N.meningitidis ACY/W135 N.meningi B/E.coli K1 Ag Group B Strep Antigen S. pneumoniae Antigen 12/11/17 12/11/17 12/11/17 11:36 16:11 16:45 WBC RBC Hgb Hct MCV MCH MCHC RDW Plt Count MPV Neut % (Auto) Lymph % (Auto) Faulkner % (Auto) Eos % (Auto) Baso % (Auto) Neut # (Auto) Lymph # (Auto) Faulkner # (Auto) Eos # (Auto) Baso # (Auto) Neutrophils % (Manual) Lymphocytes % (Manual) Monocytes % (Manual) Platelet Estimate Giant Platelets Hypochromasia (manual) Poikilocytosis (manual Anisocytosis (manual) PT INR APTT Sodium Potassium Chloride Carbon Dioxide Anion Gap BUN Creatinine Est GFR ( Amer) Est GFR (Non-Af Amer) POC Glucose (mg/dL) 249 H 236 H Random Glucose Hemoglobin A1c Calcium Phosphorus Magnesium Total Bilirubin AST ALT Alkaline Phosphatase Troponin I 1.2100 H* NT-Pro-B Natriuret Pep Total Protein Albumin Globulin Albumin/Globulin Ratio Triglycerides Cholesterol LDL Cholesterol Direct HDL Cholesterol Lipase Free T4 TSH 3rd Generation Urine Color Urine Clarity Urine pH Ur Specific Alvin Urine Protein Urine Glucose (UA) Urine Ketones Urine Blood Urine Nitrate Urine Bilirubin Urine Urobilinogen Ur Leukocyte Esterase Urine WBC (Auto) Ur Random Creatinine Ur Random Sodium Hepatitis A IgM Ab Hep Bs Antigen Hep B Core IgM Ab Hepatitis C Antibody Influenza Typ A,B (EIA) H.influenzae Type B Ag Ur L.pneumophila Ag N.meningitidis ACY/W135 N.meningi B/E.coli K1 Ag Group B Strep Antigen S. pneumoniae Antigen 12/11/17 12/11/17 19:03 19:52 WBC RBC Hgb Hct MCV MCH MCHC RDW Plt Count MPV Neut % (Auto) Lymph % (Auto) Faulkner % (Auto) Eos % (Auto) Baso % (Auto) Neut # (Auto) Lymph # (Auto) Faulkner # (Auto) Eos # (Auto) Baso # (Auto) Neutrophils % (Manual) Lymphocytes % (Manual) Monocytes % (Manual) Platelet Estimate Giant Platelets Hypochromasia (manual) Poikilocytosis (manual Anisocytosis (manual) PT INR APTT 92 H D Sodium Potassium Chloride Carbon Dioxide Anion Gap BUN Creatinine Est GFR ( Amer) Est GFR (Non-Af Amer) POC Glucose (mg/dL) Random Glucose Hemoglobin A1c Calcium Phosphorus Magnesium Total Bilirubin AST ALT Alkaline Phosphatase Troponin I NT-Pro-B Natriuret Pep Total Protein Albumin Globulin Albumin/Globulin Ratio Triglycerides Cholesterol LDL Cholesterol Direct HDL Cholesterol Lipase Free T4 TSH 3rd Generation Urine Color Urine Clarity Urine pH Ur Specific Alvin Urine Protein Urine Glucose (UA) Urine Ketones Urine Blood Urine Nitrate Urine Bilirubin Urine Urobilinogen Ur Leukocyte Esterase Urine WBC (Auto) Ur Random Creatinine 76.6 Ur Random Sodium 32 Hepatitis A IgM Ab Hep Bs Antigen Hep B Core IgM Ab Hepatitis C Antibody Influenza Typ A,B (EIA) H.influenzae Type B Ag Ur L.pneumophila Ag N.meningitidis ACY/W135 N.meningi B/E.coli K1 Ag Group B Strep Antigen S. pneumoniae Antigen Assessment & Plan - Assessment and Plan (Free Text) Assessment: 82-year-old female with history of hypertension, history of smoking presented with shortness of breath, and elevated troponin, chest x-ray consistent with CHF Patient started on IV heparin Cardiology evaluation Echocardiogram Diuretics Unlikely pneumonia Nebulizer treatment PFT as outpatient
--- NOTE | 2017-12-11 22:47 | CARD ---
APPROVED REPORT EKG Measurement Heart [id number] <Conclusion> Normal sinus rhythm Prolonged QT Abnormal ECG
--- NOTE | 2017-12-11 22:51 | CP.PCM.CON ---
History of Present Illness - History of Present Illness History of Present Illness: CC: Chest Pain HPI: 82 year old female with past medical history of Hypothyroid; HTN; Gastritis ; Diverticulosis presents to the ER with lung pain. Patient states for the past 5 days she has had pain in her back that went to her lungs. She states the last couple of months she started to have shortness of breath at rest. She normally has shortness of breath on exertion but at rest is a new occurrence. She states she took Tylenol for her lung and back pain today with no relief. Patient saw PMD earlier today who gave her Aizthromycin 250mg and methylprednisolone pack but she did not start it because her breathing did not improve so she came to the ER. Later this evening she states she started having difficulty breathing so she came to the ER. She states she normally sleeps with 3 pillows as she cannot sleep flat because she will have difficulty breathing. She has chronic lower extremity swelling. She denies nausea, vomiting, fever, chills, cough, diarrhea, constipation or dysuria. PMD: Dr. Christianne Frausto Past Medical History: Hypothyroid; HTN; Gastritis; Diverticulosis Surgical History: Cholecystectomy; umbilical hernia repair; cysts removed from liver and ovary; renal stones removed Medications:gabapentin 100mg tid; Potassium cl ER 1 tab every 3 days; Levothyroxine 75mg AM; omega 3 1gm 2 caps BID; Trazadone 50mg HS prn; Valsartan/ HCTZ 160mg/25mg daily; Verapamil ER 120mg daily Allergies: NKDA Family History: brother - heart disease; dad passed of [place] at the age of 84 Social History: lives with daughter; quit smoking 5 years ago; smoked for about 36 years/2-3 cigarettes per day; denies alcohol or illicit drug use Present on Admission - Present on Admission Any Indicators Present on Admission: No Review of Systems - Constitutional Constitutional: absent: Chills, Fever - EENT Eyes: absent: Blurred Vision, Change in Vision - Cardiovascular Cardiovascular: Chest Pain, Dyspnea, Dyspnea on Exertion, Leg Edema, Pedal Edema. absent: Lightheadedness, Palpitations - Respiratory Respiratory: Dyspnea, Dyspnea on Exertion - Gastrointestinal Gastrointestinal: absent: Constipation, Diarrhea, Nausea, Vomiting - Genitourinary Genitourinary: absent: Dysuria, Hematuria - Musculoskeletal Musculoskeletal: Back Pain. absent: Numbness, Tingling - Neurological Neurological: absent: Dizziness, Numbness, Headaches, Tingling Physical Exam - Constitutional Appears: In Acute Distress - Head Exam Head Exam: ATRAUMATIC, NORMAL INSPECTION - Eye Exam Eye Exam: EOMI, Normal appearance, PERRL Pupil Exam: NORMAL ACCOMODATION - ENT Exam ENT Exam: Mucous Membranes Dry - Respiratory Exam Respiratory Exam: Rales, Wheezes - Cardiovascular Exam Cardiovascular Exam: Tachycardia, +S1, +S2 - GI/Abdominal Exam GI & Abdominal Exam: Normal Bowel Sounds, Soft. absent: Tenderness - Extremities Exam Extremities exam: Positive for: pedal edema (+1 right foot to ankle edema ) - Neurological Exam Neurological exam: Alert, CN II-XII Intact, Oriented x3 - Psychiatric Exam Psychiatric exam: Normal Affect, Normal Mood - Skin Skin Exam: Normal Color Past Patient History - Infectious Disease Hx of Infectious Diseases: None - Past Medical History & Family History Past Medical History?: Yes - Past Social History Smoking Status: Former Smoker - CARDIAC Hx Hypertension: Yes - PULMONARY Hx Bronchitis: Yes - NEUROLOGICAL Hx Neurological Disorder: No - HEENT Hx HEENT Problems: No - RENAL Hx Chronic Kidney Disease: Yes Hx Kidney Stones: Yes - ENDOCRINE/METABOLIC Hx Hypothyroidism: Yes - MUSCULOSKELETAL/RHEUMATOLOGICAL Hx Falls: Yes (cane at home) - GASTROINTESTINAL Hx Gall Bladder Disease: Yes - PSYCHIATRIC Hx Substance Use: No - SURGICAL HISTORY Hx Surgeries: Yes Hx Cholecystectomy: Yes Other/Comment: ovarian cyst removal - ANESTHESIA Hx Anesthesia: Yes Meds Allergies/Adverse Reactions: Allergies Allergy/AdvReac Type Severity Reaction Status Date / Time No Known Allergies Allergy Verified 12/11/17 00:23 - Medications Medications: Current Medications Albuterol/Ipratropium (Duoneb 3 Mg/0.5 Mg (3 Ml) Ud) 3 ml INH RQ6 PRN PRN Reason: Shortness of Breath Aspirin (Ecotrin) 81 mg PO DAILY [facility] Clopidogrel Bisulfate (Plavix) 75 mg PO DAILY [facility] Dextrose (Dextrose 50% Inj) 0 ml IV STAT PRN; Protocol PRN Reason: Hypoglycemia Protocol Dextrose (Glutose 15) 0 gm PO ONCE PRN; Protocol PRN Reason: Hypoglycemia Protocol Furosemide (Lasix) 20 mg IVP Q12H [facility] Last Admin: 12/11/17 13:04 Dose: 20 mg Glucagon (Glucagen Diagnostic Kit) 0 mg IM STAT PRN; Protocol PRN Reason: Hypoglycemia Protocol Azithromycin 500 mg/ Sodium (Chloride) 250 mls @ 250 mls/hr IVPB DAILY [facility] PRN Reason: Protocol Last Admin: 12/11/17 11:07 Dose: 250 mls/hr Ceftriaxone Sodium 1 gm/ (Sodium Chloride) 100 mls @ 100 mls/hr IVPB DAILY [facility] PRN Reason: Protocol Last Admin: 12/11/17 09:58 Dose: 100 mls/hr Dextrose (Dextrose 5% In Water 1000 Ml) 1,000 mls @ 0 mls/hr IV .Q0M PRN; Protocol; Per Protocol PRN Reason: Hypoglycemia Protocol Heparin Sodium/Sodium Chloride (Heparin 76143 Units/250ml 1/2 Normal Saline) 25 ,000 units in 250 mls @ 8.165 mls/hr IV .Q24H PRN; Protocol; 12 UNITS/KG/HR PRN Reason: PROTOCOL Last Admin: 12/11/17 12:08 Dose: 12 units/kg/hr, 8.165 mls/hr Insulin Human Regular (Novolin R) 0 unit SC ACHS [facility] PRN Reason: Protocol Last Admin: 12/11/17 21:38 Dose: Not Given Isosorbide Dinitrate (Isordil) 20 mg PO Q8H [facility] Last Admin: 12/11/17 17:47 Dose: 20 mg Levothyroxine Sodium (Synthroid) 75 mcg PO DAILY@0630 [facility] Last Admin: 12/11/17 05:46 Dose: 75 mcg Metoprolol Tartrate (Lopressor) 12.5 mg PO BID [facility] Last Admin: 12/11/17 17:29 Dose: 12.5 mg [id number] Ethyl Esters (Lovaza) 2 gm PO BID [facility] Last Admin: 12/11/17 17:29 Dose: 2 gm Pneumococcal Polyvalent Vaccine (Pneumovax 23 Vaccine) 0.5 ml IM .ONCE ONE Stop: 12/13/17 14:01 Rosuvastatin Calcium (Crestor) 20 mg PO [facility] Last Admin: 12/11/17 21:38 Dose: 20 mg Saccharomyces Boulardii (Florastor) 250 mg PO BID [facility] Last Admin: 12/11/17 17:29 Dose: 250 mg Results - Vital Signs Recent Vital Signs: Last Vital Signs Temp 97.6 F 12/11/17 15:15 Pulse 76 12/11/17 18:00 Resp 20 12/11/17 15:15 BP 118/69 12/11/17 17:15 Pulse Ox 100 12/11/17 15:15 - Labs Result Diagrams: 12/11/17 07:48 12/11/17 07:48 Labs: Laboratory Results - last 24 hr 12/11/17 12/11/17 12/11/17 00:48 00:48 00:48 WBC 6.7 RBC 3.83 Hgb 11.4 Hct 34.1 MCV 88.9 MCH 29.8 MCHC 33.5 RDW 13.9 Plt Count 267 MPV 7.8 Neut % (Auto) 86.9 H Lymph % (Auto) 11.3 L [place] % (Auto) 1.5 Eos % (Auto) 0.1 Baso % (Auto) 0.2 Neut # (Auto) 5.9 Lymph # (Auto) 0.8 L [place] # (Auto) 0.1 Eos # (Auto) 0.0 Baso # (Auto) 0.0 Neutrophils % (Manual) Lymphocytes % (Manual) Monocytes % (Manual) Platelet Estimate Giant Platelets Hypochromasia (manual) Poikilocytosis (manual Anisocytosis (manual) PT 11.3 INR 1.0 APTT 34 Sodium 138 Potassium 4.1 Chloride 98 Carbon Dioxide 22 Anion Gap 21 H BUN 34 H Creatinine 1.4 H Est GFR ( Amer) 43 Est GFR (Non-Af Amer) 36 POC Glucose (mg/dL) Random Glucose 299 H Hemoglobin A1c Calcium 9.1 Phosphorus Magnesium Total Bilirubin 0.5 AST 111 H ALT 117 H Alkaline Phosphatase 120 Troponin I 0.1020 NT-Pro-B Natriuret Pep 5430 H Total Protein 8.4 H Albumin 4.4 Globulin 3.9 Albumin/Globulin Ratio 1.1 Triglycerides Cholesterol LDL Cholesterol Direct HDL Cholesterol Lipase 113 Free T4 TSH 3rd Generation Urine Color Urine Clarity Urine pH Ur Specific [place] Urine Protein Urine Glucose (UA) Urine Ketones Urine Blood Urine Nitrate Urine Bilirubin Urine Urobilinogen Ur Leukocyte Esterase Urine WBC (Auto) Ur Random Creatinine Ur Random Sodium Ur Random Urea Nitrogn Hepatitis A IgM Ab Hep Bs Antigen Hep B Core IgM Ab Hepatitis C Antibody Influenza Typ A,B (EIA) H.influenzae Type B Ag Ur L.pneumophila Ag N.meningitidis ACY/W135 N.meningi B/E.coli K1 Ag Group B Strep Antigen S. pneumoniae Antigen 12/11/17 12/11/17 12/11/17 01:46 03:23 06:34 WBC RBC Hgb Hct MCV MCH MCHC RDW Plt Count MPV Neut % (Auto) Lymph % (Auto) [place] % (Auto) Eos % (Auto) Baso % (Auto) Neut # (Auto) Lymph # (Auto) [place] # (Auto) Eos # (Auto) Baso # (Auto) Neutrophils % (Manual) Lymphocytes % (Manual) Monocytes % (Manual) Platelet Estimate Giant Platelets Hypochromasia (manual) Poikilocytosis (manual Anisocytosis (manual) PT INR APTT Sodium Potassium Chloride Carbon Dioxide Anion Gap BUN Creatinine Est GFR ( Amer) Est GFR (Non-Af Amer) POC Glucose (mg/dL) 164 H Random Glucose Hemoglobin A1c Calcium Phosphorus Magnesium Total Bilirubin AST ALT Alkaline Phosphatase Troponin I NT-Pro-B Natriuret Pep Total Protein Albumin Globulin Albumin/Globulin Ratio Triglycerides Cholesterol LDL Cholesterol Direct HDL Cholesterol Lipase Free T4 TSH 3rd Generation Urine Color Straw Urine Clarity Clear Urine pH 6.0 Ur Specific [place] 1.009 Urine Protein Negative Urine Glucose (UA) 2+ H Urine Ketones Negative Urine Blood Negative Urine Nitrate Negative Urine Bilirubin Negative Urine Urobilinogen Normal Ur Leukocyte Esterase Neg Urine WBC (Auto) < 1 Ur Random Creatinine Ur Random Sodium Ur Random Urea Nitrogn Hepatitis A IgM Ab Hep Bs Antigen Hep B Core IgM Ab Hepatitis C Antibody Influenza Typ A,B (EIA) Negative for flu a/b H.influenzae Type B Ag Negative Ur L.pneumophila Ag Negative N.meningitidis ACY/W135 Negative N.meningi B/E.coli K1 Ag Negative Group B Strep Antigen Negative S. pneumoniae Antigen Negative 12/11/17 12/11/17 12/11/17 07:48 07:48 07:48 WBC 10.4 D RBC 3.72 L Hgb 11.0 Hct 32.7 L MCV 88.0 MCH 29.7 MCHC 33.7 RDW 14.3 Plt Count 278 MPV 7.7 Neut % (Auto) 86.7 H Lymph % (Auto) 9.9 L [place] % (Auto) 3.1 Eos % (Auto) 0.0 Baso % (Auto) 0.3 Neut # (Auto) 9.0 H Lymph # (Auto) 1.0 [place] # (Auto) 0.3 Eos # (Auto) 0.0 Baso # (Auto) 0.0 Neutrophils % (Manual) 88 H Lymphocytes % (Manual) 9 L Monocytes % (Manual) 2 Platelet Estimate Normal Giant Platelets Present Hypochromasia (manual) Slight Poikilocytosis (manual Slight Anisocytosis (manual) Slight PT INR APTT Sodium 137 Potassium 3.7 Chloride 101 Carbon Dioxide 24 Anion Gap 17 BUN 31 H Creatinine 1.3 H Est GFR ( Amer) 47 Est GFR (Non-Af Amer) 39 POC Glucose (mg/dL) Random Glucose 180 H Hemoglobin A1c 6.2 Calcium 8.8 Phosphorus 2.6 Magnesium 2.1 Total Bilirubin 0.6 AST 84 H D ALT 115 H Alkaline Phosphatase 92 Troponin I 1.6900 H* NT-Pro-B Natriuret Pep Total Protein 8.0 Albumin 4.3 Globulin 3.7 Albumin/Globulin Ratio 1.2 Triglycerides 131 Cholesterol 205 H LDL Cholesterol Direct 127 HDL Cholesterol 61 Lipase Free T4 TSH 3rd Generation 2.74 Urine Color Urine Clarity Urine pH Ur Specific [place] Urine Protein Urine Glucose (UA) Urine Ketones Urine Blood Urine Nitrate Urine Bilirubin Urine Urobilinogen Ur Leukocyte Esterase Urine WBC (Auto) Ur Random Creatinine Ur Random Sodium Ur Random Urea Nitrogn Hepatitis A IgM Ab Hep Bs Antigen Hep B Core IgM Ab Hepatitis C Antibody Influenza Typ A,B (EIA) H.influenzae Type B Ag Ur L.pneumophila Ag N.meningitidis ACY/W135 N.meningi B/E.coli K1 Ag Group B Strep Antigen S. pneumoniae Antigen 12/11/17 12/11/17 12/11/17 07:48 07:48 11:22 WBC RBC Hgb Hct MCV MCH MCHC RDW Plt Count MPV Neut % (Auto) Lymph % (Auto) [place] % (Auto) Eos % (Auto) Baso % (Auto) Neut # (Auto) Lymph # (Auto) [place] # (Auto) Eos # (Auto) Baso # (Auto) Neutrophils % (Manual) Lymphocytes % (Manual) Monocytes % (Manual) Platelet Estimate Giant Platelets Hypochromasia (manual) Poikilocytosis (manual Anisocytosis (manual) PT INR APTT 39 H D Sodium Potassium Chloride Carbon Dioxide Anion Gap BUN Creatinine Est GFR ( Amer) Est GFR (Non-Af Amer) POC Glucose (mg/dL) Random Glucose Hemoglobin A1c Calcium Phosphorus Magnesium Total Bilirubin AST ALT Alkaline Phosphatase Troponin I NT-Pro-B Natriuret Pep Total Protein Albumin Globulin Albumin/Globulin Ratio Triglycerides Cholesterol LDL Cholesterol Direct HDL Cholesterol Lipase Free T4 1.10 TSH 3rd Generation Urine Color Urine Clarity Urine pH Ur Specific [place] Urine Protein Urine Glucose (UA) Urine Ketones Urine Blood Urine Nitrate Urine Bilirubin Urine Urobilinogen Ur Leukocyte Esterase Urine WBC (Auto) Ur Random Creatinine Ur Random Sodium Ur Random Urea Nitrogn Hepatitis A IgM Ab Negative Hep Bs Antigen Negative Hep B Core IgM Ab Negative Hepatitis C Antibody Negative Influenza Typ A,B (EIA) H.influenzae Type B Ag Ur L.pneumophila Ag N.meningitidis ACY/W135 N.meningi B/E.coli K1 Ag Group B Strep Antigen S. pneumoniae Antigen 12/11/17 12/11/17 12/11/17 11:36 16:11 16:45 WBC RBC Hgb Hct MCV MCH MCHC RDW Plt Count MPV Neut % (Auto) Lymph % (Auto) [place] % (Auto) Eos % (Auto) Baso % (Auto) Neut # (Auto) Lymph # (Auto) [place] # (Auto) Eos # (Auto) Baso # (Auto) Neutrophils % (Manual) Lymphocytes % (Manual) Monocytes % (Manual) Platelet Estimate Giant Platelets Hypochromasia (manual) Poikilocytosis (manual Anisocytosis (manual) PT INR APTT Sodium Potassium Chloride Carbon Dioxide Anion Gap BUN Creatinine Est GFR ( Amer) Est GFR (Non-Af Amer) POC Glucose (mg/dL) 249 H 236 H Random Glucose Hemoglobin A1c Calcium Phosphorus Magnesium Total Bilirubin AST ALT Alkaline Phosphatase Troponin I 1.2100 H* NT-Pro-B Natriuret Pep Total Protein Albumin Globulin Albumin/Globulin Ratio Triglycerides Cholesterol LDL Cholesterol Direct HDL Cholesterol Lipase Free T4 TSH 3rd Generation Urine Color Urine Clarity Urine pH Ur Specific [place] Urine Protein Urine Glucose (UA) Urine Ketones Urine Blood Urine Nitrate Urine Bilirubin Urine Urobilinogen Ur Leukocyte Esterase Urine WBC (Auto) Ur Random Creatinine Ur Random Sodium Ur Random Urea Nitrogn Hepatitis A IgM Ab Hep Bs Antigen Hep B Core IgM Ab Hepatitis C Antibody Influenza Typ A,B (EIA) H.influenzae Type B Ag Ur L.pneumophila Ag N.meningitidis ACY/W135 N.meningi B/E.coli K1 Ag Group B Strep Antigen S. pneumoniae Antigen 12/11/17 12/11/17 12/11/17 19:03 19:52 20:28 WBC RBC Hgb Hct MCV MCH MCHC RDW Plt Count MPV Neut % (Auto) Lymph % (Auto) [place] % (Auto) Eos % (Auto) Baso % (Auto) Neut # (Auto) Lymph # (Auto) [place] # (Auto) Eos # (Auto) Baso # (Auto) Neutrophils % (Manual) Lymphocytes % (Manual) Monocytes % (Manual) Platelet Estimate Giant Platelets Hypochromasia (manual) Poikilocytosis (manual Anisocytosis (manual) PT INR APTT 92 H D Sodium Potassium Chloride Carbon Dioxide Anion Gap BUN Creatinine Est GFR ( Amer) Est GFR (Non-Af Amer) POC Glucose (mg/dL) Random Glucose Hemoglobin A1c Calcium Phosphorus Magnesium Total Bilirubin AST ALT Alkaline Phosphatase Troponin I NT-Pro-B Natriuret Pep Total Protein Albumin Globulin Albumin/Globulin Ratio Triglycerides Cholesterol LDL Cholesterol Direct HDL Cholesterol Lipase Free T4 TSH 3rd Generation Urine Color Urine Clarity Urine pH Ur Specific [place] Urine Protein Urine Glucose (UA) Urine Ketones Urine Blood Urine Nitrate Urine Bilirubin Urine Urobilinogen Ur Leukocyte Esterase Urine WBC (Auto) Ur Random Creatinine 76.6 Ur Random Sodium 32 Ur Random Urea Nitrogn 787 Hepatitis A IgM Ab Hep Bs Antigen Hep B Core IgM Ab Hepatitis C Antibody Influenza Typ A,B (EIA) H.influenzae Type B Ag Ur L.pneumophila Ag N.meningitidis ACY/W135 N.meningi B/E.coli K1 Ag Group B Strep Antigen S. pneumoniae Antigen 12/11/17 21:14 WBC RBC Hgb Hct MCV MCH MCHC RDW Plt Count MPV Neut % (Auto) Lymph % (Auto) [place] % (Auto) Eos % (Auto) Baso % (Auto) Neut # (Auto) Lymph # (Auto) [place] # (Auto) Eos # (Auto) Baso # (Auto) Neutrophils % (Manual) Lymphocytes % (Manual) Monocytes % (Manual) Platelet Estimate Giant Platelets Hypochromasia (manual) Poikilocytosis (manual Anisocytosis (manual) PT INR APTT Sodium Potassium Chloride Carbon Dioxide Anion Gap BUN Creatinine Est GFR ( Amer) Est GFR (Non-Af Amer) POC Glucose (mg/dL) 242 H Random Glucose Hemoglobin A1c Calcium Phosphorus Magnesium Total Bilirubin AST ALT Alkaline Phosphatase Troponin I NT-Pro-B Natriuret Pep Total Protein Albumin Globulin Albumin/Globulin Ratio Triglycerides Cholesterol LDL Cholesterol Direct HDL Cholesterol Lipase Free T4 TSH 3rd Generation Urine Color Urine Clarity Urine pH Ur Specific [place] Urine Protein Urine Glucose (UA) Urine Ketones Urine Blood Urine Nitrate Urine Bilirubin Urine Urobilinogen Ur Leukocyte Esterase Urine WBC (Auto) Ur Random Creatinine Ur Random Sodium Ur Random Urea Nitrogn Hepatitis A IgM Ab Hep Bs Antigen Hep B Core IgM Ab Hepatitis C Antibody Influenza Typ A,B (EIA) H.influenzae Type B Ag Ur L.pneumophila Ag N.meningitidis ACY/W135 N.meningi B/E.coli K1 Ag Group B Strep Antigen S. pneumoniae Antigen Assessment & Plan - Assessment and Plan (Free Text) Assessment: (1) NSTEMI (non-ST elevated myocardial infarction) Assessment & Plan: * Management as per recommendation * Plans for cardiac catherization, 12/14/17 Labs/Imaging: BLANK positive X2, down trendin.2100--> 1.6900-->1.2100 EKG: Lateral wall ischemia ( T-wave abnormalities) HgbA1C: 6.2 Lipid Panel: TGL:131, Chol:205, LDL: 127 and HDL: 61 TSH: 2.74 and Free T4: 1.10 Awaiting echocardiogram Medications: * Plavix 75mg PO daily * Heparin Drip * ASA 81mg PO daily * Crestor 20mg PO HS * Lopressor 12.5mg PO BID * Isosorbide Dinitrate 20mg PO Q8H Status: Acute (2) Congestive heart failure Assessment & Plan: BNP on admission: 5430 Chest X-ray: Mild congestive heart failure * Lasix 20mg PO BID Status: Acute (3) Pneumonia Assessment & Plan: Possible underlying pneumonia - urine legionella; urine strep pneumo; mycoplasm; rapid influenza: Negative - Azithromycin 500mg daily (started 12/11/17) - Ceftriaxone 1gm IV q24h (started 12/11/17) - Florastor 250mg PO BID - Repeat chest xray after loss of at least 5-6 lbs to see if antibiotics are really needed, f/u repeat Chest X-ray. if repeat Chest X-ray is not suggestive of pneumonia, discontinue antibiotics Status: Acute (4) Renal insufficiency Assessment & Plan: - Nephro Consult: Dr. Woodward --> help appreciated for further renal failure Imaging/Labs BUN/Cr: Down trending, continue to monitor with labs Renal US: Evidence of medical renal disease. No hydronephrosis or nephrolithiasis. Status: Acute (5) Glucose intolerance (impaired glucose tolerance) Assessment & Plan: HbgA1C: 6.2 Accuchecks ISS low dose Heart healthy diet Status: Acute (6) Hypothyroidism Assessment & Plan: TSH: 2.74 and Free T4: 1.10 Continue home medication: Levothyroxine 25meq daily Status: Acute (7) Hypertension Assessment & Plan: * Lopressor 12.5mg PO BID * Isosorbide Dinitrate 20mg PO Q8H Status: Acute (8) Hyperlipidemia Assessment & Plan: Lipid Panel: TGL:131, Chol:205, LDL: 127 and HDL: 61 - Continue omega-3 2gm po bid - Crestor 20mg PO HS Status: Acute (9) Prophylactic measure Assessment & Plan: - DVT: Heparin Drip - PT/OT eval for KIRK - Heart Healthy/2gm Na/Renal/Low carb diet
[2017-12-12] MEDS ORDERED: Albuterol-Ipratrop 3 mg / 0.5 (3 ml) UD INH PRN (04:00)
[2017-12-12] MEDS: Levothyroxine 75 MCG TAB PO SCH (07:04)
--- NOTE | 2017-12-12 07:30 | CP.PCM.CON ---
History of Present Illness - History of Present Illness History of Present Illness: 82 year old female with past medical history of Hypothyroid; HTN; Gastritis; Diverticulosis presented to the ED with "lung pain"; found to have renal insufficiency for which nephrology is being consulted; Patient reports that since past 5 days, has been having pain in her back that went to her lungs. She states since last couple of months, she has been haivng shortness of breath at rest while previously having had only dyspnea on exertion ; Patient just came back from [facility] after 2 month vacation; was having markedly edematous legs while there which have improved significantly; denies being placed on any new meds (eg. diuretics) at the time; was only taking her home meds which she [place] from [place] (only diuretic is valsartan-hctz); she reports decreased PO intake while on vacation but improving lately; Review of Systems - Constitutional Constitutional: As Per HPI - EENT Eyes: absent: Change in Vision Nose/Mouth/Throat: absent: Dysphagia - Cardiovascular Cardiovascular: As Per HPI, Palpitations - Respiratory Respiratory: As Per HPI - Gastrointestinal Gastrointestinal: absent: Diarrhea, Vomiting - Genitourinary Genitourinary: Urinary Frequency. absent: Difficulty Urinating, Dysuria - Musculoskeletal Additional comments: denies taking any pain meds; Past Patient History - Infectious Disease Hx of Infectious Diseases: None - Past Medical History & Family History Past Medical History?: Yes Pertinent Family History: cancer, CHF? - Past Social History Smoking Status: Former Smoker - CARDIAC Hx Hypertension: Yes - PULMONARY Hx Bronchitis: Yes - NEUROLOGICAL Hx Neurological Disorder: No - HEENT Hx HEENT Problems: No - RENAL Hx Chronic Kidney Disease: Yes Hx Kidney Stones: Yes - ENDOCRINE/METABOLIC Hx Hypothyroidism: Yes - MUSCULOSKELETAL/RHEUMATOLOGICAL Hx Falls: Yes (cane at home) - GASTROINTESTINAL Hx Gall Bladder Disease: Yes - PSYCHIATRIC Hx Substance Use: No - SURGICAL HISTORY Hx Surgeries: Yes Hx Cholecystectomy: Yes Other/Comment: ovarian cyst removal - ANESTHESIA Hx Anesthesia: Yes Meds Allergies/Adverse Reactions: Allergies Allergy/AdvReac Type Severity Reaction Status Date / Time No Known Allergies Allergy Verified 12/11/17 00:23 - Medications Medications: Current Medications Albuterol/Ipratropium (Duoneb 3 Mg/0.5 Mg (3 Ml) Ud) 3 ml INH RQ6 PRN PRN Reason: Shortness of Breath Aspirin (Ecotrin) 81 mg PO DAILY [facility] Clopidogrel Bisulfate (Plavix) 75 mg PO DAILY [facility] Dextrose (Dextrose 50% Inj) 0 ml IV STAT PRN; Protocol PRN Reason: Hypoglycemia Protocol Dextrose (Glutose 15) 0 gm PO ONCE PRN; Protocol PRN Reason: Hypoglycemia Protocol Furosemide (Lasix) 20 mg IVP Q12H [facility] Last Admin: 12/12/17 01:21 Dose: 20 mg Glucagon (Glucagen Diagnostic Kit) 0 mg IM STAT PRN; Protocol PRN Reason: Hypoglycemia Protocol Azithromycin 500 mg/ Sodium (Chloride) 250 mls @ 250 mls/hr IVPB DAILY [facility] PRN Reason: Protocol Last Admin: 12/11/17 11:07 Dose: 250 mls/hr Ceftriaxone Sodium 1 gm/ (Sodium Chloride) 100 mls @ 100 mls/hr IVPB DAILY [facility] PRN Reason: Protocol Last Admin: 12/11/17 09:58 Dose: 100 mls/hr Dextrose (Dextrose 5% In Water 1000 Ml) 1,000 mls @ 0 mls/hr IV .Q0M PRN; Protocol; Per Protocol PRN Reason: Hypoglycemia Protocol Heparin Sodium/Sodium Chloride (Heparin 18570 Units/250ml 1/2 Normal Saline) 25 ,000 units in 250 mls @ 8.165 mls/hr IV .Q24H PRN; Protocol; 12 UNITS/KG/HR PRN Reason: PROTOCOL Last Admin: 12/11/17 12:08 Dose: 12 units/kg/hr, 8.165 mls/hr Insulin Human Regular (Novolin R) 0 unit SC ACHS [facility] PRN Reason: Protocol Last Admin: 12/11/17 21:38 Dose: Not Given Isosorbide Dinitrate (Isordil) 20 mg PO Q8H [facility] Last Admin: 12/12/17 01:21 Dose: 20 mg Levothyroxine Sodium (Synthroid) 75 mcg PO DAILY@0630 [facility] Last Admin: 12/12/17 07:04 Dose: 75 mcg Metoprolol Tartrate (Lopressor) 12.5 mg PO BID [facility] Last Admin: 12/11/17 17:29 Dose: 12.5 mg Iqgil-[id number] Ethyl Esters (Lovaza) 2 gm PO BID [facility] Last Admin: 12/11/17 17:29 Dose: 2 gm Pneumococcal Polyvalent Vaccine (Pneumovax 23 Vaccine) 0.5 ml IM .ONCE ONE Stop: 12/13/17 14:01 Rosuvastatin Calcium (Crestor) 20 mg PO HS [facility] Last Admin: 12/11/17 21:38 Dose: 20 mg Saccharomyces Boulardii (Florastor) 250 mg PO BID [facility] Last Admin: 12/11/17 17:29 Dose: 250 mg Physical Exam - Constitutional Appears: Non-toxic, No Acute Distress - Eye Exam Eye Exam: Normal appearance. absent: Scleral icterus - ENT Exam ENT Exam: Mucous Membranes Moist - Respiratory Exam Respiratory Exam: Clear to Auscultation Bilateral. absent: Respiratory Distress - Cardiovascular Exam Cardiovascular Exam: RRR, +S1, +S2. absent: Gallop - GI/Abdominal Exam GI & Abdominal Exam: Soft. absent: Distended, Tenderness - Exam Exam: absent: Bladder Distension - Extremities Exam Additional comments: mild lower leg edema L > R; - Neurological Exam Neurological exam: Alert Additional comments: no tremor - Psychiatric Exam Psychiatric exam: Normal Affect, Normal Mood - Skin Skin Exam: Normal Color, Warm Results - Vital Signs Recent Vital Signs: Last Vital Signs Temp 97.7 F 12/12/17 00:17 Pulse 76 12/12/17 01:00 Resp 20 12/12/17 00:17 BP 112/65 12/12/17 01:21 Pulse Ox 100 12/12/17 00:17 - Labs Result Diagrams: 12/11/17 07:48 12/11/17 07:48 Labs: Laboratory Results - last 24 hr 12/11/17 12/11/17 12/11/17 01:46 07:48 07:48 WBC 10.4 D RBC 3.72 L Hgb 11.0 Hct 32.7 L MCV 88.0 MCH 29.7 MCHC 33.7 RDW 14.3 Plt Count 278 MPV 7.7 Neut % (Auto) 86.7 H Lymph % (Auto) 9.9 L [place] % (Auto) 3.1 Eos % (Auto) 0.0 Baso % (Auto) 0.3 Neut # (Auto) 9.0 H Lymph # (Auto) 1.0 [place] # (Auto) 0.3 Eos # (Auto) 0.0 Baso # (Auto) 0.0 Neutrophils % (Manual) 88 H Lymphocytes % (Manual) 9 L Monocytes % (Manual) 2 Platelet Estimate Normal Giant Platelets Present Hypochromasia (manual) Slight Poikilocytosis (manual Slight Anisocytosis (manual) Slight APTT Sodium 137 Potassium 3.7 Chloride 101 Carbon Dioxide 24 Anion Gap 17 BUN 31 H Creatinine 1.3 H Est GFR ( Amer) 47 Est GFR (Non-Af Amer) 39 POC Glucose (mg/dL) Random Glucose 180 H Hemoglobin A1c Calcium 8.8 Phosphorus 2.6 Magnesium 2.1 Total Bilirubin 0.6 AST 84 H D ALT 115 H Alkaline Phosphatase 92 Troponin I 1.6900 H* Total Protein 8.0 Albumin 4.3 Globulin 3.7 Albumin/Globulin Ratio 1.2 Triglycerides 131 Cholesterol 205 H LDL Cholesterol Direct 127 HDL Cholesterol 61 Free T4 TSH 3rd Generation 2.74 Ur Random Creatinine Ur Random Sodium Ur Random Urea Nitrogn Hepatitis A IgM Ab Hep Bs Antigen Hep B Core IgM Ab Hepatitis C Antibody Influenza Typ A,B (EIA) Negative for flu a/b H.influenzae Type B Ag Negative Ur L.pneumophila Ag Negative N.meningitidis ACY/W135 Negative N.meningi B/E.coli K1 Ag Negative Group B Strep Antigen Negative S. pneumoniae Antigen Negative 12/11/17 12/11/17 12/11/17 07:48 07:48 07:48 WBC RBC Hgb Hct MCV MCH MCHC RDW Plt Count MPV Neut % (Auto) Lymph % (Auto) [place] % (Auto) Eos % (Auto) Baso % (Auto) Neut # (Auto) Lymph # (Auto) [place] # (Auto) Eos # (Auto) Baso # (Auto) Neutrophils % (Manual) Lymphocytes % (Manual) Monocytes % (Manual) Platelet Estimate Giant Platelets Hypochromasia (manual) Poikilocytosis (manual Anisocytosis (manual) APTT Sodium Potassium Chloride Carbon Dioxide Anion Gap BUN Creatinine Est GFR ( Amer) Est GFR (Non-Af Amer) POC Glucose (mg/dL) Random Glucose Hemoglobin A1c 6.2 Calcium Phosphorus Magnesium Total Bilirubin AST ALT Alkaline Phosphatase Troponin I Total Protein Albumin Globulin Albumin/Globulin Ratio Triglycerides Cholesterol LDL Cholesterol Direct HDL Cholesterol Free T4 1.10 TSH 3rd Generation Ur Random Creatinine Ur Random Sodium Ur Random Urea Nitrogn Hepatitis A IgM Ab Negative Hep Bs Antigen Negative Hep B Core IgM Ab Negative Hepatitis C Antibody Negative Influenza Typ A,B (EIA) H.influenzae Type B Ag Ur L.pneumophila Ag N.meningitidis ACY/W135 N.meningi B/E.coli K1 Ag Group B Strep Antigen S. pneumoniae Antigen 12/11/17 12/11/17 12/11/17 11:22 11:36 16:11 WBC RBC Hgb Hct MCV MCH MCHC RDW Plt Count MPV Neut % (Auto) Lymph % (Auto) [place] % (Auto) Eos % (Auto) Baso % (Auto) Neut # (Auto) Lymph # (Auto) [place] # (Auto) Eos # (Auto) Baso # (Auto) Neutrophils % (Manual) Lymphocytes % (Manual) Monocytes % (Manual) Platelet Estimate Giant Platelets Hypochromasia (manual) Poikilocytosis (manual Anisocytosis (manual) APTT 39 H D Sodium Potassium Chloride Carbon Dioxide Anion Gap BUN Creatinine Est GFR ( Amer) Est GFR (Non-Af Amer) POC Glucose (mg/dL) 249 H 236 H Random Glucose Hemoglobin A1c Calcium Phosphorus Magnesium Total Bilirubin AST ALT Alkaline Phosphatase Troponin I Total Protein Albumin Globulin Albumin/Globulin Ratio Triglycerides Cholesterol LDL Cholesterol Direct HDL Cholesterol Free T4 TSH 3rd Generation Ur Random Creatinine Ur Random Sodium Ur Random Urea Nitrogn Hepatitis A IgM Ab Hep Bs Antigen Hep B Core IgM Ab Hepatitis C Antibody Influenza Typ A,B (EIA) H.influenzae Type B Ag Ur L.pneumophila Ag N.meningitidis ACY/W135 N.meningi B/E.coli K1 Ag Group B Strep Antigen S. pneumoniae Antigen 12/11/17 12/11/17 12/11/17 16:45 19:03 19:52 WBC RBC Hgb Hct MCV MCH MCHC RDW Plt Count MPV Neut % (Auto) Lymph % (Auto) [place] % (Auto) Eos % (Auto) Baso % (Auto) Neut # (Auto) Lymph # (Auto) [place] # (Auto) Eos # (Auto) Baso # (Auto) Neutrophils % (Manual) Lymphocytes % (Manual) Monocytes % (Manual) Platelet Estimate Giant Platelets Hypochromasia (manual) Poikilocytosis (manual Anisocytosis (manual) APTT 92 H D Sodium Potassium Chloride Carbon Dioxide Anion Gap BUN Creatinine Est GFR ( Amer) Est GFR (Non-Af Amer) POC Glucose (mg/dL) Random Glucose Hemoglobin A1c Calcium Phosphorus Magnesium Total Bilirubin AST ALT Alkaline Phosphatase Troponin I 1.2100 H* Total Protein Albumin Globulin Albumin/Globulin Ratio Triglycerides Cholesterol LDL Cholesterol Direct HDL Cholesterol Free T4 TSH 3rd Generation Ur Random Creatinine 76.6 Ur Random Sodium 32 Ur Random Urea Nitrogn Hepatitis A IgM Ab Hep Bs Antigen Hep B Core IgM Ab Hepatitis C Antibody Influenza Typ A,B (EIA) H.influenzae Type B Ag Ur L.pneumophila Ag N.meningitidis ACY/W135 N.meningi B/E.coli K1 Ag Group B Strep Antigen S. pneumoniae Antigen 12/11/17 12/11/17 12/12/17 20:28 21:14 01:57 WBC RBC Hgb Hct MCV MCH MCHC RDW Plt Count MPV Neut % (Auto) Lymph % (Auto) [place] % (Auto) Eos % (Auto) Baso % (Auto) Neut # (Auto) Lymph # (Auto) [place] # (Auto) Eos # (Auto) Baso # (Auto) Neutrophils % (Manual) Lymphocytes % (Manual) Monocytes % (Manual) Platelet Estimate Giant Platelets Hypochromasia (manual) Poikilocytosis (manual Anisocytosis (manual) APTT 89 H Sodium Potassium Chloride Carbon Dioxide Anion Gap BUN Creatinine Est GFR ( Amer) Est GFR (Non-Af Amer) POC Glucose (mg/dL) 242 H Random Glucose Hemoglobin A1c Calcium Phosphorus Magnesium Total Bilirubin AST ALT Alkaline Phosphatase Troponin I Total Protein Albumin Globulin Albumin/Globulin Ratio Triglycerides Cholesterol LDL Cholesterol Direct HDL Cholesterol Free T4 TSH 3rd Generation Ur Random Creatinine Ur Random Sodium Ur Random Urea Nitrogn 787 Hepatitis A IgM Ab Hep Bs Antigen Hep B Core IgM Ab Hepatitis C Antibody Influenza Typ A,B (EIA) H.influenzae Type B Ag Ur L.pneumophila Ag N.meningitidis ACY/W135 N.meningi B/E.coli K1 Ag Group B Strep Antigen S. pneumoniae Antigen 12/12/17 06:23 WBC RBC Hgb Hct MCV MCH MCHC RDW Plt Count MPV Neut % (Auto) Lymph % (Auto) [place] % (Auto) Eos % (Auto) Baso % (Auto) Neut # (Auto) Lymph # (Auto) [place] # (Auto) Eos # (Auto) Baso # (Auto) Neutrophils % (Manual) Lymphocytes % (Manual) Monocytes % (Manual) Platelet Estimate Giant Platelets Hypochromasia (manual) Poikilocytosis (manual Anisocytosis (manual) APTT Sodium Potassium Chloride Carbon Dioxide Anion Gap BUN Creatinine Est GFR ( Amer) Est GFR (Non-Af Amer) POC Glucose (mg/dL) 127 H Random Glucose Hemoglobin A1c Calcium Phosphorus Magnesium Total Bilirubin AST ALT Alkaline Phosphatase Troponin I Total Protein Albumin Globulin Albumin/Globulin Ratio Triglycerides Cholesterol LDL Cholesterol Direct HDL Cholesterol Free T4 TSH 3rd Generation Ur Random Creatinine Ur Random Sodium Ur Random Urea Nitrogn Hepatitis A IgM Ab Hep Bs Antigen Hep B Core IgM Ab Hepatitis C Antibody Influenza Typ A,B (EIA) H.influenzae Type B Ag Ur L.pneumophila Ag N.meningitidis ACY/W135 N.meningi B/E.coli K1 Ag Group B Strep Antigen S. pneumoniae Antigen - Imaging and Cardiology US - abdomen Status: Image reviewed by me Additional comment: Renal US - directly reviewed, echogenicity appears mostly preserved; no hydronephrosis; Assessment & Plan (1) Renal insufficiency Assessment and Plan: No previous labs available to assess baseline renal function; renal US images reviewed, questionable if consistent with CKD; no albuminuria by dipstick; urine lytes consistent with pre-renal etiology (low FENa) which can be consistent with either excessive diuresis or decreased renal perfusion due to pump failure; no signs of cardiogenic shock and only mild volume excess by exam and CXR findings with normal BP; -continue gentle diuresis for now in the setting of CHF exacerbation; agree with IV lasix 20 mg q12h; -should discontinue diuresis on Thursday and start isotonic saline at 75 cc/hr for 12 hrs prior to cardiac cath (scheduled for Thursday); -NAC 1200 mg (6 mL PO) q12h starting Thursday morning); -avoid all nephrotoxic agents (eg. NSAIDS, fleets enema); -continue to hold ARB for now; Status: Acute (2) Congestive heart failure Assessment and Plan: Awaiting echo findings; agree with gentle diuresis as above; Status: Acute (3) NSTEMI (non-ST elevated myocardial infarction) Assessment and Plan: Increased troponin this morning; cardio planning for left heart cath Thursday; contrast prophylaxis as above; Status: Acute (4) Hypertension Assessment and Plan: Normotensive on current regimen, ARB being held; continue same; Status: Chronic
[2017-12-12] MEDS: Albuterol-Ipratrop 3 mg / 0.5 (3 ml) UD INH PRN (07:33)
[2017-12-12] MEDS: (Novolin R) Insulin Human Regular 100 units/ml vial SC SCH ×4 (08:15→21:53)
--- NOTE | 2017-12-12 08:18 | CP.PCM.PN ---
<Epifanio Metcalf R - Last Filed: 12/12/17 13:54> Subjective - Date & Time of Evaluation Date of Evaluation: 12/12/17 Time of Evaluation: 13:54 - Subjective Subjective: PGY-[address] Barbour. No acute events noted overnight. Patient stated she feels better - reports that her breathing has improved and that she can walk to the bathroom now without feeling sob. Able to tolerate diet. Did not offer any complaints. Aware of cath on thursday. Objective - Vital Signs/Intake and Output Vital Signs (last 24 hours): Temp Pulse Resp BP Pulse Ox 97.6 F 78 20 125/62 100 12/12/17 07:00 12/12/17 07:34 12/12/17 07:00 12/12/17 07:00 12/12/17 07:00 - Medications Medications: Current Medications Albuterol/Ipratropium (Duoneb 3 Mg/0.5 Mg (3 Ml) Ud) 3 ml INH RQ6 PRN PRN Reason: Shortness of Breath Last Admin: 12/12/17 07:33 Dose: 3 ml Aspirin (Ecotrin) 81 mg PO DAILY ANGELINE Clopidogrel Bisulfate (Plavix) 75 mg PO DAILY [facility] Dextrose (Dextrose 50% Inj) 0 ml IV STAT PRN; Protocol PRN Reason: Hypoglycemia Protocol Dextrose (Glutose 15) 0 gm PO ONCE PRN; Protocol PRN Reason: Hypoglycemia Protocol Furosemide (Lasix) 20 mg IVP Q12H [facility] Last Admin: 12/12/17 01:21 Dose: 20 mg Glucagon (Glucagen Diagnostic Kit) 0 mg IM STAT PRN; Protocol PRN Reason: Hypoglycemia Protocol Azithromycin 500 mg/ Sodium (Chloride) 250 mls @ 250 mls/hr IVPB DAILY ANGELINE PRN Reason: Protocol Last Admin: 12/11/17 11:07 Dose: 250 mls/hr Ceftriaxone Sodium 1 gm/ (Sodium Chloride) 100 mls @ 100 mls/hr IVPB DAILY [facility] PRN Reason: Protocol Last Admin: 12/11/17 09:58 Dose: 100 mls/hr Dextrose (Dextrose 5% In Water 1000 Ml) 1,000 mls @ 0 mls/hr IV .Q0M PRN; Protocol; Per Protocol PRN Reason: Hypoglycemia Protocol Heparin Sodium/Sodium Chloride (Heparin 81988 Units/250ml 1/2 Normal Saline) 25 ,000 units in 250 mls @ 8.165 mls/hr IV .Q24H PRN; Protocol; 12 UNITS/KG/HR PRN Reason: PROTOCOL Last Admin: 12/11/17 12:08 Dose: 12 units/kg/hr, 8.165 mls/hr Insulin Human Regular (Novolin R) 0 unit SC ACHS [facility] PRN Reason: Protocol Last Admin: 12/11/17 21:38 Dose: Not Given Isosorbide Dinitrate (Isordil) 20 mg PO Q8H [facility] Last Admin: 12/12/17 01:21 Dose: 20 mg Levothyroxine Sodium (Synthroid) 75 mcg PO DAILY@0630 [facility] Last Admin: 12/12/17 07:04 Dose: 75 mcg Metoprolol Tartrate (Lopressor) 12.5 mg PO BID [facility] Last Admin: 12/11/17 17:29 Dose: 12.5 mg Risqs-2-Gjoe Ethyl Esters (Lovaza) 2 gm PO BID [facility] Last Admin: 12/11/17 17:29 Dose: 2 gm Pneumococcal Polyvalent Vaccine (Pneumovax 23 Vaccine) 0.5 ml IM .ONCE ONE Stop: 12/13/17 14:01 Rosuvastatin Calcium (Crestor) 20 mg PO HS [facility] Last Admin: 12/11/17 21:38 Dose: 20 mg Saccharomyces Boulardii (Florastor) 250 mg PO BID [facility] Last Admin: 12/11/17 17:29 Dose: 250 mg - Labs Labs: 12/11/17 07:48 12/11/17 07:48 PT 11.3 SECONDS (9.7-12.2) 12/11/17 00:48 INR 1.0 12/11/17 00:48 APTT 89 SECONDS (21-34) H 12/12/17 01:57 - Additional Findings Additional findings: - Constitutional Appears: Well, No Acute Distress - Head Exam Head Exam: ATRAUMATIC - Eye Exam Eye Exam: EOMI - ENT Exam ENT Exam: Mucous Membranes Moist - Respiratory Exam Respiratory Exam: Clear to Ausculation Bilateral, NORMAL BREATHING PATTERN. absent: Prolonged Expiratory Phase, Rhonchi, Wheezes, Respiratory Distress - Cardiovascular Exam Cardiovascular Exam: REGULAR RHYTHM, +S1, +S2. absent: Murmur - GI/Abdominal Exam GI & Abdominal Exam: Soft, Normal Bowel Sounds. absent: Distended, Firm, Guarding, Rigid, Tenderness - Extremities Exam Extremities Exam: Normal Inspection. absent: Calf Tenderness, Pedal Edema - Neurological Exam Neurological Exam: Alert, Awake, Oriented x3 - Psychiatric Exam Psychiatric exam: Normal Affect - Skin Skin Exam: Normal Color Assessment and Plan - Assessment and Plan (Free Text) Assessment: (1) NSTEMI (non-ST elevated myocardial infarction) Assessment & Plan: Consult, Automatic Beading Lathe Operator, Dr. Reece---> Help appreciated * Management as per recommendation * Plans for cardiac catherization, 12/14/17 Labs/Imaging: BLANK positive X2, down trendin.2100--> 1.6900-->1.2100 EKG: Lateral wall ischemia ( T-wave abnormalities) HgbA1C: 6.2 Lipid Panel: TGL:131, Chol:205, LDL: 127 and HDL: 61 TSH: 2.74 and Free T4: 1.10 Awaiting echocardiogram Medications: * Plavix 75mg PO daily * Heparin Drip * ASA 81mg PO daily * Crestor 20mg PO HS * Lopressor 12.5mg PO BID * Isosorbide Dinitrate 20mg PO Q8H Status: Acute (2) Congestive heart failure Assessment & Plan: BNP on admission: 5430 Chest X-ray: Mild congestive heart failure * Lasix 20mg PO BID Status: Acute (3) Pneumonia Assessment & Plan: Possible underlying pneumonia - urine legionella; urine strep pneumo; mycoplasm; rapid influenza: Negative - Azithromycin 500mg daily (started 12/11/17) - Ceftriaxone 1gm IV q24h (started 12/11/17) - Florastor 250mg PO BID - Repeat chest xray after loss of at least 5-6 lbs to see if antibiotics are really needed, f/u repeat Chest X-ray. if repeat Chest X-ray is not suggestive of pneumonia, discontinue antibiotics Status: Acute (4) Renal insufficiency Assessment & Plan: - Nephro Consult: Dr. Woodward * should discontinue diuresis on Thursday and start isotonic saline at 75 cc/hr for 12 hrs prior to cardiac cath (scheduled for Thursday) * NAC 1200 mg (6 mL PO) q12h starting Thursday morning) * IVF for contrast prophylaxis for 12h prior to cath * continue to hold ARB for now * avoid nephrotoxic agents (especially NSAIDS) Imaging/Labs BUN/Cr: Down trending, continue to monitor with labs Renal US: Evidence of medical renal disease. No hydronephrosis or nephrolithiasis. Status: Acute (5) Glucose intolerance (impaired glucose tolerance) Assessment & Plan: HbgA1C: 6.2 Accuchecks ISS low dose Heart healthy diet Status: Acute (6) Hypothyroidism Assessment & Plan: TSH: 2.74 and Free T4: 1.10 Continue home medication: Levothyroxine 25meq daily Status: Acute (7) Hypertension Assessment & Plan: * Lopressor 12.5mg PO BID * Isosorbide Dinitrate 20mg PO Q8H Status: Acute (8) Hyperlipidemia Assessment & Plan: Lipid Panel: TGL:131, Chol:205, LDL: 127 and HDL: 61 - Continue omega-3 2gm po bid - Crestor 20mg PO HS Status: Acute (9) Prophylactic measure Assessment & Plan: - DVT: Heparin Drip - PT/OT eval for KIRK - Heart Healthy/2gm Na/Renal/Low carb diet All plans and management discussed with Dr. Barbour Status: Acute <Margaret Barbour - Last Filed: 12/12/17 16:53> Objective - Vital Signs/Intake and Output Vital Signs (last 24 hours): Temp Pulse Resp BP Pulse Ox 98.0 F 70 18 109/53 L 100 12/12/17 15:00 12/12/17 16:35 12/12/17 15:00 12/12/17 15:00 12/12/17 15:00 - Medications Medications: Current Medications Acetylcysteine (Acetylcysteine 20%) 6 ml PO Q12H [facility] Stop: 12/14/17 10:01 Albuterol/Ipratropium (Duoneb 3 Mg/0.5 Mg (3 Ml) Ud) 3 ml INH RQ6 PRN PRN Reason: Shortness of Breath Last Admin: 12/12/17 07:33 Dose: 3 ml Aspirin (Ecotrin) 81 mg PO DAILY ANGELINE Last Admin: 12/12/17 10:44 Dose: 81 mg Clopidogrel Bisulfate (Plavix) 75 mg PO DAILY ANGELINE Last Admin: 12/12/17 10:44 Dose: 75 mg Dextrose (Dextrose 50% Inj) 0 ml IV STAT PRN; Protocol PRN Reason: Hypoglycemia Protocol Dextrose (Glutose 15) 0 gm PO ONCE PRN; Protocol PRN Reason: Hypoglycemia Protocol Furosemide (Lasix) 20 mg IVP Q12H [facility] Last Admin: 12/12/17 13:12 Dose: 20 mg Glucagon (Glucagen Diagnostic Kit) 0 mg IM STAT PRN; Protocol PRN Reason: Hypoglycemia Protocol Azithromycin 500 mg/ Sodium (Chloride) 250 mls @ 250 mls/hr IVPB DAILY ANGELINE PRN Reason: Protocol Last Admin: 12/12/17 10:44 Dose: 250 mls/hr Ceftriaxone Sodium 1 gm/ (Sodium Chloride) 100 mls @ 100 mls/hr IVPB DAILY ANGELINE PRN Reason: Protocol Last Admin: 12/12/17 09:06 Dose: 100 mls/hr Dextrose (Dextrose 5% In Water 1000 Ml) 1,000 mls @ 0 mls/hr IV .Q0M PRN; Protocol; Per Protocol PRN Reason: Hypoglycemia Protocol Heparin Sodium/Sodium Chloride (Heparin 58686 Units/250ml 1/2 Normal Saline) 25 ,000 units in 250 mls @ 8.165 mls/hr IV .Q24H PRN; Protocol; 12 UNITS/KG/HR PRN Reason: PROTOCOL Last Admin: 12/11/17 12:08 Dose: 12 units/kg/hr, 8.165 mls/hr Insulin Human Regular (Novolin R) 0 unit SC ACHS [facility] PRN Reason: Protocol Last Admin: 12/12/17 13:11 Dose: 2 unit Isosorbide Dinitrate (Isordil) 20 mg PO Q8H [facility] Last Admin: 12/12/17 10:44 Dose: 20 mg Levothyroxine Sodium (Synthroid) 75 mcg PO DAILY@0630 [facility] Last Admin: 12/12/17 07:04 Dose: 75 mcg Metoprolol Tartrate (Lopressor) 12.5 mg PO BID [facility] Last Admin: 12/12/17 10:44 Dose: 12.5 mg Zipra-6-Aylp Ethyl Esters (Lovaza) 2 gm PO BID [facility] Last Admin: 12/12/17 10:43 Dose: 2 gm Pneumococcal Polyvalent Vaccine (Pneumovax 23 Vaccine) 0.5 ml IM .ONCE ONE Stop: 12/13/17 14:01 Rosuvastatin Calcium (Crestor) 20 mg PO HS [facility] Last Admin: 12/11/17 21:38 Dose: 20 mg Saccharomyces Boulardii (Florastor) 250 mg PO BID ANGELINE Last Admin: 12/12/17 10:44 Dose: 250 mg - Labs Labs: 12/12/17 08:41 12/12/17 08:41 PT 11.3 SECONDS (9.7-12.2) 12/11/17 00:48 INR 1.0 12/11/17 00:48 APTT 94 SECONDS (21-34) H D 12/12/17 08:41 Attending/Attestation - Attestation I have personally seen and examined this patient.: Yes I have fully participated in the care of the patient.: Yes I have reviewed all pertinent clinical information, including history, physical exam and plan: Yes Notes (Text): . Seen and examined,no complain. denies pain,no sob 1. NSTMI 2.acute diastolic heart failure 3.Pulmonary edema 4.Renal failure(Unknown acute or chronic) 5.Hypothyroidism 6.Hypertension Continue heparin drip,aspirin,plavix,statin,metoprolol and Isorsorbid dinitrate continue antibiotics I agree with the resident's documentation of the assessment and the plan d/w Dr Woodward Planning for cardiac cath on Thursday
[2017-12-12 08:56] LABS: BASO % 0.2 % (0.0-2.0); EOS % 0.1 % (0.0-4.0); HEMOGLOBIN 9.8 g/dL (11.0-16.0); LYMPH # 2.6 K/uL (1.0-4.3); MEAN CELL VOLUME 88.3 fL (81.0-99.0); MEAN CORPUSCULAR HEMOGLOBIN 29.5 pg (27.0-31.0); MEAN CORPUSCULAR HGB CONC 33.3 g/dL (33.0-37.0); MEAN PLATELET VOLUME 7.8 fL (7.2-11.7); MONO # 0.9 K/uL (0.0-0.8); MONO % 6.5 % (0.0-10.0); NEUT # 10.7 K/uL (1.8-7.0); NEUT % 75.2 % (50.0-75.0); RBC 3.32 Mil/uL (3.80-5.20); RED CELL DISTRIBUTION WIDTH 14.2 % (11.5-14.5); WHITE BLOOD COUNT 14.2 K/uL (4.8-10.8)
[2017-12-12 09:22] LABS: ALB/GLOB RATIO 1.2 (1.0-2.1); CALCIUM 8.5 mg/dl (8.6-10.4)
[2017-12-12] MEDS: Omega-3-Acid Ethyl Esters 1 GM Cap PO SCH ×2 (10:43→17:22)
[2017-12-12] MEDS: Saccharomyces Boulardi 250 mg Cap PO SCH ×2 (10:44→18:53)
[2017-12-12] MEDS: Azithromycin 500 MG in Sodium Chloride 0.9% 250 ML IVPB SCH (10:44)
--- NOTE | 2017-12-12 12:21 | CP.PCM.PN ---
Subjective - Date & Time of Evaluation Date of Evaluation: 12/12/17 Time of Evaluation: 11:00 - Subjective Subjective: Reports feeling well; breathing improved; ambulating without dyspnea; tolerating diet; Objective - Vital Signs/Intake and Output Vital Signs (last 24 hours): Temp Pulse Resp BP Pulse Ox 97.6 F 78 20 125/62 100 12/12/17 07:00 12/12/17 07:34 12/12/17 07:00 12/12/17 07:00 12/12/17 07:00 - Medications Medications: Current Medications Acetylcysteine (Acetylcysteine 20%) 6 ml PO Q12H [facility] Stop: 12/14/17 10:01 Albuterol/Ipratropium (Duoneb 3 Mg/0.5 Mg (3 Ml) Ud) 3 ml INH RQ6 PRN PRN Reason: Shortness of Breath Last Admin: 12/12/17 07:33 Dose: 3 ml Aspirin (Ecotrin) 81 mg PO DAILY [facility] Last Admin: 12/12/17 10:44 Dose: 81 mg Clopidogrel Bisulfate (Plavix) 75 mg PO DAILY [facility] Last Admin: 12/12/17 10:44 Dose: 75 mg Dextrose (Dextrose 50% Inj) 0 ml IV STAT PRN; Protocol PRN Reason: Hypoglycemia Protocol Dextrose (Glutose 15) 0 gm PO ONCE PRN; Protocol PRN Reason: Hypoglycemia Protocol Furosemide (Lasix) 20 mg IVP Q12H [facility] Last Admin: 12/12/17 01:21 Dose: 20 mg Glucagon (Glucagen Diagnostic Kit) 0 mg IM STAT PRN; Protocol PRN Reason: Hypoglycemia Protocol Azithromycin 500 mg/ Sodium (Chloride) 250 mls @ 250 mls/hr IVPB DAILY [facility] PRN Reason: Protocol Last Admin: 12/12/17 10:44 Dose: 250 mls/hr Ceftriaxone Sodium 1 gm/ (Sodium Chloride) 100 mls @ 100 mls/hr IVPB DAILY [facility] PRN Reason: Protocol Last Admin: 12/12/17 09:06 Dose: 100 mls/hr Dextrose (Dextrose 5% In Water 1000 Ml) 1,000 mls @ 0 mls/hr IV .Q0M PRN; Protocol; Per Protocol PRN Reason: Hypoglycemia Protocol Heparin Sodium/Sodium Chloride (Heparin 35872 Units/250ml 1/2 Normal Saline) 25 ,000 units in 250 mls @ 8.165 mls/hr IV .Q24H PRN; Protocol; 12 UNITS/KG/HR PRN Reason: PROTOCOL Last Admin: 12/11/17 12:08 Dose: 12 units/kg/hr, 8.165 mls/hr Insulin Human Regular (Novolin R) 0 unit SC ACHS [facility] PRN Reason: Protocol Last Admin: 12/12/17 08:15 Dose: Not Given Isosorbide Dinitrate (Isordil) 20 mg PO Q8H [facility] Last Admin: 12/12/17 10:44 Dose: 20 mg Levothyroxine Sodium (Synthroid) 75 mcg PO DAILY@0630 [facility] Last Admin: 12/12/17 07:04 Dose: 75 mcg Metoprolol Tartrate (Lopressor) 12.5 mg PO BID [facility] Last Admin: 12/12/17 10:44 Dose: 12.5 mg Oboru-7-Midy Ethyl Esters (Lovaza) 2 gm PO BID [facility] Last Admin: 12/12/17 10:43 Dose: 2 gm Pneumococcal Polyvalent Vaccine (Pneumovax 23 Vaccine) 0.5 ml IM .ONCE ONE Stop: 12/13/17 14:01 Rosuvastatin Calcium (Crestor) 20 mg PO HS [facility] Last Admin: 12/11/17 21:38 Dose: 20 mg Saccharomyces Boulardii (Florastor) 250 mg PO BID [facility] Last Admin: 12/12/17 10:44 Dose: 250 mg - Labs Labs: 12/12/17 08:41 12/12/17 08:41 PT 11.3 SECONDS (9.7-12.2) 12/11/17 00:48 INR 1.0 12/11/17 00:48 APTT 94 SECONDS (21-34) H D 12/12/17 08:41 - Constitutional Appears: Non-toxic, No Acute Distress - Eye Exam Eye Exam: absent: Scleral icterus - ENT Exam ENT Exam: Mucous Membranes Moist - Respiratory Exam Respiratory Exam: absent: Respiratory Distress Additional comments: basal rales present; - Cardiovascular Exam Cardiovascular Exam: RRR, +S1, +S2 - GI/Abdominal Exam GI & Abdominal Exam: Soft. absent: Distended, Tenderness - Extremities Exam Additional comments: mild lower leg edema; - Neurological Exam Neurological Exam: Alert, Awake - Psychiatric Exam Psychiatric exam: Normal Affect. absent: Agitated - Skin Skin Exam: Warm. absent: Cyanosis Assessment and Plan (1) Renal insufficiency Assessment & Plan: Stable renal function with gentle diuresis; continue same for now; holding diuretics tomorrow and giving IVF for contrast prophylaxis for 12h prior to cath ; NAC also ordered for the same; -avoid nephrotoxic agents (especially NSAIDS); Status: Acute (2) Congestive heart failure Assessment & Plan: Still awaiting echo; otherwise symptomatically improved; continue lasix IV 20 mg q12h for today; Status: Acute (3) NSTEMI (non-ST elevated myocardial infarction) Assessment & Plan: Currently chest pain free; awaiting left heart cath on Thursday; may benefit from right heart cath as well to assess volume status; see above regarding contrast prophylaxis; Status: Acute (4) Hypertension Assessment & Plan: Currently normotensive, continue current meds; Status: Chronic
--- NOTE | 2017-12-12 15:11 | CARD ---
APPROVED REPORT EXAM: Two-dimensional and M-mode echocardiogram with Doppler and color Doppler. Other Information Quality : GoodRhythm : INDICATION Chest Pain Congestive Heart Failure RISK FACTORS Hypertension Diabetes 2D DIMENSIONS IVSd1.3 (0.7-1.1cm)LVDd4.4 (3.9-5.9cm) LVOT Diameter1.7 (1.8-2.4cm)PWd1.2 (0.7-1.1cm) LVDs3.1 (2.5-4.0cm)FS (%) 29.2 % LVEF (%)56.3 (>50%) M-Mode DIMENSIONS Left Atrium (MM)4.29 (2.5-4.0cm)Aortic Root3.05 (2.2-3.7cm) Aortic Cusp Exc.1.36 (1.5-2.0cm) Mitral Valve MV E Dwnllqal32.2cm/sMV A Oewjgxam276.4cm/sE/A ratio0.8 TDI E/Lateral E'0.0E/Medial E'0.0 Tricuspid Valve TR Peak [id number]/sTR Peak Gr.[id number] LEFT VENTRICLE The left ventricle is normal size. There is normal left ventricular wall thickness. The left ventricular function is normal. The left ventricular ejection fraction is within the normal range. No regional wall motion abnormalities noted. Transmitral Doppler flow pattern is Grade I-abnormal relaxation pattern.LV filling pressure is mildly elevated No left ventricle thrombus noted on this study There is no ventricular septal defect visualized. There is no left ventricular aneurysm. There is no mass noted in the left ventricle. RIGHT VENTRICLE The right ventricle is normal size. There is normal right ventricular wall thickness. The right ventricular systolic function is normal. ATRIA The left atrium size is normal. The right atrium size is normal. The interatrial septum is intact with no evidence for an atrial septal defect. AORTIC VALVE The aortic valve is normal in structure and function. No aortic regurgitation is present. There is no aortic valvular stenosis. There is no aortic valvular vegetation. MITRAL VALVE The mitral valve is normal in structure and function. There is no evidence of mitral valve prolapse. There is no mitral valve stenosis. There is no mitral valve regurgitation noted. TRICUSPID VALVE The tricuspid valve is normal in structure and function. There is no tricuspid valve regurgitation noted. There is no tricuspid valve prolapse or vegetation. There is no tricuspid valve stenosis. PULMONIC VALVE The pulmonary valve is normal in structure and function. There is no pulmonic valvular regurgitation. There is no pulmonic valvular stenosis. GREAT VESSELS The aortic root is normal in size. The ascending aorta is normal in size. The pulmonary artery is normal. The IVC is normal in size and collapses >50% with inspiration. PERICARDIAL EFFUSION The pericardium appears normal. There is no pleural effusion. <Conclusion> The left ventricular function is normal. The left ventricular ejection fraction is within the normal range. No regional wall motion abnormalities noted. Transmitral Doppler flow pattern is Grade I-abnormal relaxation pattern.LV filling pressure is mildly elevated, suggests diastolic heart failure
--- NOTE | 2017-12-12 17:24 | RAD ---
HISTORY: COMPARISON: 60. TECHNIQUE: Chest PA and lateral FINDINGS: LINES AND TUBES: None. LUNG AND PLEURA: The lungs are well inflated and clear. HEART AND MEDIASTINUM: The heart is not enlarged. Atherosclerotic aortic arch calcifications are present. The hilar and mediastinal contours are within normal limits. SKELETAL STRUCTURES: The bony structures are within normal limits for the patient's age. VISUALIZED UPPER ABDOMEN: Normal. OTHER FINDINGS: None. IMPRESSION: No active pulmonary disease.
[2017-12-12] MEDS: Heparin25000 units/250ml 1/2NS 25,000 UNITS/250 ML BAG IV PRN (19:03)
--- NOTE | 2017-12-12 22:43 | CP.PCM.PN ---
Subjective - Date & Time of Evaluation Date of Evaluation: 12/12/17 Time of Evaluation: 16:25 - Subjective Subjective: Patient seen and evaluated Denies chest pain and dyspnea Physical examination - Additional Findings Additional findings: - Constitutional Appears: Well, No Acute Distress - Head Exam Head Exam: ATRAUMATIC - Eye Exam Eye Exam: EOMI - ENT Exam ENT Exam: Mucous Membranes Moist - Respiratory Exam Respiratory Exam: Clear to Ausculation Bilateral, NORMAL BREATHING PATTERN. absent: Prolonged Expiratory Phase, Rhonchi, Wheezes, Respiratory Distress - Cardiovascular Exam Cardiovascular Exam: REGULAR RHYTHM, +S1, +S2. absent: Murmur - GI/Abdominal Exam GI & Abdominal Exam: Soft, Normal Bowel Sounds. absent: Distended, Firm, Guarding, Rigid, Tenderness - Extremities Exam Extremities Exam: Normal Inspection. absent: Calf Tenderness, Pedal Edema - Neurological Exam Neurological Exam: Alert, Awake, Oriented x3 - Psychiatric Exam Psychiatric exam: Normal Affect - Skin Skin Exam: Normal Color Objective - Vital Signs/Intake and Output Vital Signs (last 24 hours): Temp Pulse Resp BP Pulse Ox 98.0 F 70 18 121/69 100 12/12/17 15:00 12/12/17 17:26 12/12/17 15:00 12/12/17 17:26 12/12/17 15:00 Intake and Output: 12/12/17 12/13/17 18:59 06:59 Intake Total 250 Balance 250 - Medications Medications: Current Medications Acetylcysteine (Acetylcysteine 20%) 6 ml PO Q12H [facility] Stop: 12/14/17 10:01 Albuterol/Ipratropium (Duoneb 3 Mg/0.5 Mg (3 Ml) Ud) 3 ml INH RQ6 PRN PRN Reason: Shortness of Breath Last Admin: 12/12/17 07:33 Dose: 3 ml Aspirin (Ecotrin) 81 mg PO DAILY [facility] Last Admin: 12/12/17 10:44 Dose: 81 mg Clopidogrel Bisulfate (Plavix) 75 mg PO DAILY [facility] Last Admin: 12/12/17 10:44 Dose: 75 mg Dextrose (Dextrose 50% Inj) 0 ml IV STAT PRN; Protocol PRN Reason: Hypoglycemia Protocol Dextrose (Glutose 15) 0 gm PO ONCE PRN; Protocol PRN Reason: Hypoglycemia Protocol Furosemide (Lasix) 20 mg PO DAILY [facility] Glucagon (Glucagen Diagnostic Kit) 0 mg IM STAT PRN; Protocol PRN Reason: Hypoglycemia Protocol Azithromycin 500 mg/ Sodium (Chloride) 250 mls @ 250 mls/hr IVPB DAILY [facility] PRN Reason: Protocol Last Admin: 12/12/17 10:44 Dose: 250 mls/hr Ceftriaxone Sodium 1 gm/ (Sodium Chloride) 100 mls @ 100 mls/hr IVPB DAILY [facility] PRN Reason: Protocol Last Admin: 12/12/17 09:06 Dose: 100 mls/hr Dextrose (Dextrose 5% In Water 1000 Ml) 1,000 mls @ 0 mls/hr IV .Q0M PRN; Protocol; Per Protocol PRN Reason: Hypoglycemia Protocol Heparin Sodium/Sodium Chloride (Heparin 50619 Units/250ml 1/2 Normal Saline) 25 ,000 units in 250 mls @ 8.165 mls/hr IV .Q24H PRN; Protocol; 12 UNITS/KG/HR PRN Reason: PROTOCOL Last Admin: 12/12/17 19:03 Dose: 12 units/kg/hr, 8.165 mls/hr Insulin Human Regular (Novolin R) 0 unit SC ACHS [facility] PRN Reason: Protocol Last Admin: 12/12/17 21:53 Dose: Not Given Isosorbide Dinitrate (Isordil) 20 mg PO Q8H [facility] Last Admin: 12/12/17 17:22 Dose: 20 mg Levothyroxine Sodium (Synthroid) 75 mcg PO DAILY@0630 [facility] Last Admin: 12/12/17 07:04 Dose: 75 mcg Metoprolol Tartrate (Lopressor) 12.5 mg PO BID [facility] Last Admin: 12/12/17 17:22 Dose: 12.5 mg Gtwap-1-Tdrq Ethyl Esters (Lovaza) 2 gm PO BID [facility] Last Admin: 12/12/17 17:22 Dose: 2 gm Pneumococcal Polyvalent Vaccine (Pneumovax 23 Vaccine) 0.5 ml IM .ONCE ONE Stop: 12/13/17 14:01 Rosuvastatin Calcium (Crestor) 20 mg PO HS [facility] Last Admin: 12/12/17 21:53 Dose: 20 mg Saccharomyces Boulardii (Florastor) 250 mg PO BID [facility] Last Admin: 12/12/17 18:53 Dose: 250 mg - Labs Labs: 12/12/17 08:41 12/12/17 08:41 PT 11.3 SECONDS (9.7-12.2) 12/11/17 00:48 INR 1.0 12/11/17 00:48 APTT 94 SECONDS (21-34) H D 12/12/17 08:41 Assessment and Plan - Assessment and Plan (Free Text) Assessment: (1) NSTEMI (non-ST elevated myocardial infarction) Assessment & Plan: * Management as per recommendation * Plans for cardiac catherization, 12/14/17 Labs/Imaging: BLANK positive X2, down trendin.2100--> 1.6900-->1.2100 EKG: Lateral wall ischemia ( T-wave abnormalities) HgbA1C: 6.2 Lipid Panel: TGL:131, Chol:205, LDL: 127 and HDL: 61 TSH: 2.74 and Free T4: 1.10 Awaiting echocardiogram Medications: * Plavix 75mg PO daily * Heparin Drip * ASA 81mg PO daily * Crestor 20mg PO HS * Lopressor 12.5mg PO BID * Isosorbide Dinitrate 20mg PO Q8H Status: Acute (2) Congestive heart failure Assessment & Plan: BNP on admission: 5430 Chest X-ray: Mild congestive heart failure * Lasix 20mg PO BID Status: Acute (3) Pneumonia Assessment & Plan: Possible underlying pneumonia - urine legionella; urine strep pneumo; mycoplasm; rapid influenza: Negative - Azithromycin 500mg daily (started 12/11/17) - Ceftriaxone 1gm IV q24h (started 12/11/17) - Florastor 250mg PO BID - Repeat chest xray after loss of at least 5-6 lbs to see if antibiotics are really needed, f/u repeat Chest X-ray. if repeat Chest X-ray is not suggestive of pneumonia, discontinue antibiotics Status: Acute (4) Renal insufficiency Assessment & Plan: - Nephro Consult: Dr. Woodward --> help appreciated for further renal failure Imaging/Labs BUN/Cr: Down trending, continue to monitor with labs Renal US: Evidence of medical renal disease. No hydronephrosis or nephrolithiasis. Status: Acute (5) Glucose intolerance (impaired glucose tolerance) Assessment & Plan: HbgA1C: 6.2 Accuchecks ISS low dose Heart healthy diet Status: Acute (6) Hypothyroidism Assessment & Plan: TSH: 2.74 and Free T4: 1.10 Continue home medication: Levothyroxine 25meq daily Status: Acute (7) Hypertension Assessment & Plan: * Lopressor 12.5mg PO BID * Isosorbide Dinitrate 20mg PO Q8H Status: Acute (8) Hyperlipidemia Assessment & Plan: Lipid Panel: TGL:131, Chol:205, LDL: 127 and HDL: 61 - Continue omega-3 2gm po bid - Crestor 20mg PO HS Status: Acute (9) Prophylactic measure Assessment & Plan: - DVT: Heparin Drip - PT/OT eval for [facility] - Heart Healthy/2gm Na/Renal/Low carb diet Cardiac cath Thursday 1pm
--- NOTE | 2017-12-13 04:16 | CP.PCM.PN ---
Subjective - Date & Time of Evaluation Date of Evaluation: 12/13/17 Time of Evaluation: 04:11 - Subjective Subjective: Medicine progress note for Dr. Barbour Patient was seen and examined at bedside. Patient was laying comfortably in bed and in no acute distress. Patient has no complaints and says shes feeling well. patient denies chest pain, dyspnea, nausea, vomiting, abdominal pain, fevers, headaches, leg pain. No acute events overnight. Objective - Vital Signs/Intake and Output Vital Signs (last 24 hours): Temp Pulse Resp BP Pulse Ox 98 F 75 20 118/63 100 12/13/17 00:00 12/13/17 00:00 12/13/17 00:00 12/13/17 00:00 12/13/17 00:00 Intake and Output: 12/12/17 12/13/17 18:59 06:59 Intake Total 250 Balance 250 - Medications Medications: Current Medications Acetylcysteine (Acetylcysteine 20%) 6 ml PO Q12H [facility] Stop: 12/14/17 10:01 Albuterol/Ipratropium (Duoneb 3 Mg/0.5 Mg (3 Ml) Ud) 3 ml INH RQ6 PRN PRN Reason: Shortness of Breath Last Admin: 12/12/17 07:33 Dose: 3 ml Aspirin (Ecotrin) 81 mg PO DAILY [facility] Last Admin: 12/12/17 10:44 Dose: 81 mg Clopidogrel Bisulfate (Plavix) 75 mg PO DAILY [facility] Last Admin: 12/12/17 10:44 Dose: 75 mg Dextrose (Dextrose 50% Inj) 0 ml IV STAT PRN; Protocol PRN Reason: Hypoglycemia Protocol Dextrose (Glutose 15) 0 gm PO ONCE PRN; Protocol PRN Reason: Hypoglycemia Protocol Furosemide (Lasix) 20 mg PO DAILY [facility] Glucagon (Glucagen Diagnostic Kit) 0 mg IM STAT PRN; Protocol PRN Reason: Hypoglycemia Protocol Azithromycin 500 mg/ Sodium (Chloride) 250 mls @ 250 mls/hr IVPB DAILY [facility] PRN Reason: Protocol Last Admin: 12/12/17 10:44 Dose: 250 mls/hr Ceftriaxone Sodium 1 gm/ (Sodium Chloride) 100 mls @ 100 mls/hr IVPB DAILY [facility] PRN Reason: Protocol Last Admin: 12/12/17 09:06 Dose: 100 mls/hr Dextrose (Dextrose 5% In Water 1000 Ml) 1,000 mls @ 0 mls/hr IV .Q0M PRN; Protocol; Per Protocol PRN Reason: Hypoglycemia Protocol Heparin Sodium/Sodium Chloride (Heparin 68951 Units/250ml 1/2 Normal Saline) 25 ,000 units in 250 mls @ 8.165 mls/hr IV .Q24H PRN; Protocol; 12 UNITS/KG/HR PRN Reason: PROTOCOL Last Admin: 12/12/17 19:03 Dose: 12 units/kg/hr, 8.165 mls/hr Insulin Human Regular (Novolin R) 0 unit SC ACHS [facility] PRN Reason: Protocol Last Admin: 12/12/17 21:53 Dose: Not Given Isosorbide Dinitrate (Isordil) 20 mg PO Q8H [facility] Last Admin: 12/13/17 02:39 Dose: 20 mg Levothyroxine Sodium (Synthroid) 75 mcg PO DAILY@0630 [facility] Last Admin: 12/12/17 07:04 Dose: 75 mcg Metoprolol Tartrate (Lopressor) 12.5 mg PO BID [facility] Last Admin: 12/12/17 17:22 Dose: 12.5 mg Hortl-4-Rxyw Ethyl Esters (Lovaza) 2 gm PO BID [facility] Last Admin: 12/12/17 17:22 Dose: 2 gm Pneumococcal Polyvalent Vaccine (Pneumovax 23 Vaccine) 0.5 ml IM .ONCE ONE Stop: 12/13/17 14:01 Rosuvastatin Calcium (Crestor) 20 mg PO HS [facility] Last Admin: 12/12/17 21:53 Dose: 20 mg Saccharomyces Boulardii (Florastor) 250 mg PO BID [facility] Last Admin: 12/12/17 18:53 Dose: 250 mg - Labs Labs: 12/12/17 08:41 12/12/17 08:41 PT 11.3 SECONDS (9.7-12.2) 12/11/17 00:48 INR 1.0 12/11/17 00:48 APTT 94 SECONDS (21-34) H D 12/12/17 08:41 - Additional Findings Additional findings: - Constitutional Appears: Well, No Acute Distress - Head Exam Head Exam: ATRAUMATIC - Eye Exam Eye Exam: EOMI - ENT Exam ENT Exam: Mucous Membranes Moist - Respiratory Exam Respiratory Exam: Clear to Ausculation Bilateral, NORMAL BREATHING PATTERN. absent: Prolonged Expiratory Phase, Rhonchi, Wheezes, Respiratory Distress - Cardiovascular Exam Cardiovascular Exam: REGULAR RHYTHM, +S1, +S2. absent: Murmur - GI/Abdominal Exam GI & Abdominal Exam: Soft, Normal Bowel Sounds. absent: Distended, Firm, Guarding, Rigid, Tenderness - Extremities Exam Extremities Exam: Normal Inspection. absent: Calf Tenderness, Pedal Edema - Neurological Exam Neurological Exam: Alert, Awake, Oriented x3 - Psychiatric Exam Psychiatric exam: Normal Affect - Skin Skin Exam: Normal Color Assessment and Plan - Assessment and Plan (Free Text) Plan: (1) NSTEMI (non-ST elevated myocardial infarction) Assessment & Plan: Consult, [facility], Dr. Reece---> Help appreciated * Management as per recommendation * Plans for cardiac catherization, 12/14/17 Labs/Imaging: BLANK positive X2, down trendin.2100--> 1.6900-->1.2100 EKG: Lateral wall ischemia ( T-wave abnormalities) HgbA1C: 6.2 Lipid Panel: TGL:131, Chol:205, LDL: 127 and HDL: 61 TSH: 2.74 and Free T4: 1.10 Awaiting echocardiogram Medications: * Plavix 75mg PO daily * Heparin Drip * ASA 81mg PO daily * Crestor 20mg PO HS * Lopressor 12.5mg PO BID * Isosorbide Dinitrate 20mg PO Q8H (2) Congestive heart failure Assessment & Plan: BNP on admission: 5430 Chest X-ray: Mild congestive heart failure * Lasix 20mg PO BID (3) Pneumonia Assessment & Plan: Possible underlying pneumonia - urine legionella; urine strep pneumo; mycoplasm; rapid influenza: Negative - Azithromycin 500mg daily (started 12/11/17) - Ceftriaxone 1gm IV q24h (started 12/11/17) - Florastor 250mg PO BID - Repeat chest xray after loss of at least 5-6 lbs to see if antibiotics are really needed, f/u repeat Chest X-ray. if repeat Chest X-ray is not suggestive of pneumonia, discontinue antibiotics (4) Renal insufficiency Assessment & Plan: - Nephro Consult: Dr. Woodward * should discontinue diuresis on Thursday and start isotonic saline at 75 cc/hr for 12 hrs prior to cardiac cath (scheduled for Thursday) * NAC 1200 mg (6 mL PO) q12h starting Thursday morning) * IVF for contrast prophylaxis for 12h prior to cath * continue to hold ARB for now * avoid nephrotoxic agents (especially NSAIDS) Imaging/Labs: * BUN/Cr: Down trending, continue to monitor with labs * Renal US: Evidence of medical renal disease. No hydronephrosis or nephrolithiasis. (5) Glucose intolerance (impaired glucose tolerance) Assessment & Plan: HbgA1C: 6.2 Accuchecks ISS low dose Heart healthy diet (6) Hypothyroidism Assessment & Plan: TSH: 2.74 and Free T4: 1.10 Continue home medication: Levothyroxine 25meq daily (7) Hypertension Assessment & Plan: Lopressor 12.5mg PO BID Isosorbide Dinitrate 20mg PO Q8H (8) Hyperlipidemia Assessment & Plan: Lipid Panel: TGL:131, Chol:205, LDL: 127 and HDL: 61 - Continue omega-3 2gm po bid - Crestor 20mg PO HS (9) Prophylactic measure Assessment & Plan: - DVT: Heparin Drip - PT/OT eval for [facility] - Heart Healthy/2gm Na/Renal/Low carb diet
[2017-12-13] MEDS: Levothyroxine 75 MCG TAB PO SCH (06:01)
[2017-12-13 07:02] LABS: BASO % 0.4 % (0.0-2.0); EOS # 0.1 K/uL (0.0-0.7); HEMOGLOBIN 9.4 g/dL (11.0-16.0); LYMPH # 3.6 K/uL (1.0-4.3); LYMPH % 36.1 % (20.0-40.0); MEAN CELL VOLUME 89.2 fL (81.0-99.0); MEAN CORPUSCULAR HEMOGLOBIN 30.4 pg (27.0-31.0); MEAN CORPUSCULAR HGB CONC 34.1 g/dL (33.0-37.0); MEAN PLATELET VOLUME 7.7 fL (7.2-11.7); MONO # 0.8 K/uL (0.0-0.8); MONO % 8.2 % (0.0-10.0); NEUT # 5.3 K/uL (1.8-7.0); NEUT % 54.3 % (50.0-75.0); RBC 3.09 Mil/uL (3.80-5.20); RED CELL DISTRIBUTION WIDTH 14.4 % (11.5-14.5); WHITE BLOOD COUNT 9.8 K/uL (4.8-10.8)
[2017-12-13] MEDS: Albuterol-Ipratrop 3 mg / 0.5 (3 ml) UD INH PRN (07:15)
[2017-12-13 07:29] LABS: ALB/GLOB RATIO 1.2 (1.0-2.1); ALBUMIN 3.6 g/dL (3.5-5.0); CALCIUM 8.4 mg/dl (8.6-10.4)
[2017-12-13] MEDS: (Novolin R) Insulin Human Regular 100 units/ml vial SC SCH ×4 (07:39→21:28)
[2017-12-13] MEDS: Acetylcysteine 20% Inhal Soln (4ml) PO SCH ×2 (10:53→23:00)
[2017-12-13] MEDS: Omega-3-Acid Ethyl Esters 1 GM Cap PO SCH ×2 (10:54→17:47)
[2017-12-13] MEDS: Saccharomyces Boulardi 250 mg Cap PO SCH ×2 (10:54→17:47)
[2017-12-13] MEDS: Azithromycin 500 MG in Sodium Chloride 0.9% 250 ML IVPB SCH (11:45)
[2017-12-13 12:16] LABS: CK-MB 1.62 ng/mL (0.0-3.38); TROPONIN I 0.278 ng/mL (0.00-0.120)
[2017-12-13] MEDS ORDERED: Pneumococcal 23-Valent Vaccine IM ONE (14:00)
--- NOTE | 2017-12-13 18:07 | CP.PCM.PN ---
Subjective - Date & Time of Evaluation Date of Evaluation: 12/13/17 Time of Evaluation: 13:00 - Subjective Subjective: Patient seen and examined Lying comfortably in no acute distress Denies chest pain or shortness of breath patient is scheduled for cardiac cath tomorrow Continue present treatment Continue anticoagulation and diuretics Continue nebulizer treatment Objective - Vital Signs/Intake and Output Vital Signs (last 24 hours): Temp Pulse Resp BP Pulse Ox 98.0 F 71 20 120/62 98 12/13/17 15:20 12/13/17 15:20 12/13/17 15:20 12/13/17 15:20 12/13/17 15:20 Intake and Output: 12/13/17 12/13/17 06:59 18:59 Intake Total 414 Balance 414 - Medications Medications: Current Medications Acetylcysteine (Acetylcysteine 20%) 6 ml PO Q12H [facility] Stop: 12/14/17 10:01 Last Admin: 12/13/17 10:53 Dose: 6 ml Albuterol/Ipratropium (Duoneb 3 Mg/0.5 Mg (3 Ml) Ud) 3 ml INH RQ6 PRN PRN Reason: Shortness of Breath Last Admin: 12/13/17 07:15 Dose: 3 ml Aspirin (Ecotrin) 81 mg PO DAILY [facility] Last Admin: 12/13/17 10:53 Dose: 81 mg Clopidogrel Bisulfate (Plavix) 75 mg PO DAILY [facility] Last Admin: 12/13/17 10:54 Dose: 75 mg Dextrose (Dextrose 50% Inj) 0 ml IV STAT PRN; Protocol PRN Reason: Hypoglycemia Protocol Dextrose (Glutose 15) 0 gm PO ONCE PRN; Protocol PRN Reason: Hypoglycemia Protocol Furosemide (Lasix) 20 mg PO DAILY [facility] Last Admin: 12/13/17 10:54 Dose: 20 mg Glucagon (Glucagen Diagnostic Kit) 0 mg IM STAT PRN; Protocol PRN Reason: Hypoglycemia Protocol Azithromycin 500 mg/ Sodium (Chloride) 250 mls @ 250 mls/hr IVPB DAILY [facility] PRN Reason: Protocol Last Admin: 12/13/17 11:45 Dose: 250 mls/hr Ceftriaxone Sodium 1 gm/ (Sodium Chloride) 100 mls @ 100 mls/hr IVPB DAILY [facility] PRN Reason: Protocol Last Admin: 12/13/17 10:45 Dose: 100 mls/hr Dextrose (Dextrose 5% In Water 1000 Ml) 1,000 mls @ 0 mls/hr IV .Q0M PRN; Protocol; Per Protocol PRN Reason: Hypoglycemia Protocol Heparin Sodium/Sodium Chloride (Heparin 18417 Units/250ml 1/2 Normal Saline) 25 ,000 units in 250 mls @ 8.165 mls/hr IV .Q24H PRN; Protocol; 12 UNITS/KG/HR PRN Reason: PROTOCOL Last Admin: 12/12/17 19:03 Dose: 12 units/kg/hr, 8.165 mls/hr Sodium Chloride (Sodium Chloride 0.9%) 1,000 mls @ 75 mls/hr IV .[id number] [facility] Insulin Human Regular (Novolin R) 0 unit SC ACHS [facility] PRN Reason: Protocol Last Admin: 12/13/17 16:30 Dose: 3 unit Isosorbide Dinitrate (Isordil) 20 mg PO Q8H [facility] Last Admin: 12/13/17 17:51 Dose: 20 mg Levothyroxine Sodium (Synthroid) 75 mcg PO DAILY@0630 [facility] Last Admin: 12/13/17 06:01 Dose: 75 mcg Metoprolol Tartrate (Lopressor) 12.5 mg PO BID [facility] Last Admin: 12/13/17 17:46 Dose: 12.5 mg Kyvsf-5-Ktlz Ethyl Esters (Lovaza) 2 gm PO BID [facility] Last Admin: 12/13/17 17:47 Dose: 2 gm Pneumococcal Polyvalent Vaccine (Pneumovax 23 Vaccine) 0.5 ml IM .ONCE ONE Stop: 12/15/17 10:01 Rosuvastatin Calcium (Crestor) 20 mg PO HS [facility] Last Admin: 12/12/17 21:53 Dose: 20 mg Saccharomyces Boulardii (Florastor) 250 mg PO BID [facility] Last Admin: 12/13/17 17:47 Dose: 250 mg - Labs Labs: 12/13/17 06:53 12/13/17 06:53 PT 11.3 SECONDS (9.7-12.2) 12/11/17 00:48 INR 1.0 12/11/17 00:48 APTT 86 SECONDS (21-34) H D 12/13/17 06:53
[2017-12-13] MEDS: Sodium Chloride 0.9% 1,000 ML IV SCH (18:42)
--- NOTE | 2017-12-13 22:53 | CP.PCM.PN ---
Subjective - Date & Time of Evaluation Date of Evaluation: 12/13/17 Time of Evaluation: 16:10 - Subjective Subjective: Patient seen and evaluated Recurrent episodes of chest pain On anticoagulation For cath tomorrow after noon d/w patient 's grand son NPO after breakfast Hold Heparin from from 8am tomorrow Objective - Vital Signs/Intake and Output Vital Signs (last 24 hours): Temp Pulse Resp BP Pulse Ox 98.0 F 71 20 120/62 98 12/13/17 15:20 12/13/17 15:20 12/13/17 15:20 12/13/17 15:20 12/13/17 15:20 - Medications Medications: Current Medications Acetylcysteine (Acetylcysteine 20%) 6 ml PO Q12H [facility] Stop: 12/14/17 10:01 Last Admin: 12/13/17 10:53 Dose: 6 ml Albuterol/Ipratropium (Duoneb 3 Mg/0.5 Mg (3 Ml) Ud) 3 ml INH RQ6 PRN PRN Reason: Shortness of Breath Last Admin: 12/13/17 07:15 Dose: 3 ml Aspirin (Ecotrin) 81 mg PO DAILY [facility] Last Admin: 12/13/17 10:53 Dose: 81 mg Clopidogrel Bisulfate (Plavix) 75 mg PO DAILY [facility] Last Admin: 12/13/17 10:54 Dose: 75 mg Dextrose (Dextrose 50% Inj) 0 ml IV STAT PRN; Protocol PRN Reason: Hypoglycemia Protocol Dextrose (Glutose 15) 0 gm PO ONCE PRN; Protocol PRN Reason: Hypoglycemia Protocol Furosemide (Lasix) 20 mg PO DAILY [facility] Last Admin: 12/13/17 10:54 Dose: 20 mg Glucagon (Glucagen Diagnostic Kit) 0 mg IM STAT PRN; Protocol PRN Reason: Hypoglycemia Protocol Azithromycin 500 mg/ Sodium (Chloride) 250 mls @ 250 mls/hr IVPB DAILY [facility] PRN Reason: Protocol Last Admin: 12/13/17 11:45 Dose: 250 mls/hr Ceftriaxone Sodium 1 gm/ (Sodium Chloride) 100 mls @ 100 mls/hr IVPB DAILY [facility] PRN Reason: Protocol Last Admin: 12/13/17 10:45 Dose: 100 mls/hr Dextrose (Dextrose 5% In Water 1000 Ml) 1,000 mls @ 0 mls/hr IV .Q0M PRN; Protocol; Per Protocol PRN Reason: Hypoglycemia Protocol Heparin Sodium/Sodium Chloride (Heparin 47005 Units/250ml 1/2 Normal Saline) 25 ,000 units in 250 mls @ 8.165 mls/hr IV .Q24H PRN; Protocol; 12 UNITS/KG/HR PRN Reason: PROTOCOL Last Admin: 12/12/17 19:03 Dose: 12 units/kg/hr, 8.165 mls/hr Sodium Chloride (Sodium Chloride 0.9%) 1,000 mls @ 75 mls/hr IV .[id number] [facility] Last Admin: 12/13/17 18:42 Dose: 75 mls/hr Insulin Human Regular (Novolin R) 0 unit SC ACHS [facility] PRN Reason: Protocol Last Admin: 12/13/17 21:28 Dose: Not Given Isosorbide Dinitrate (Isordil) 20 mg PO Q8H [facility] Last Admin: 12/13/17 17:51 Dose: 20 mg Levothyroxine Sodium (Synthroid) 75 mcg PO DAILY@0630 [facility] Last Admin: 12/13/17 06:01 Dose: 75 mcg Metoprolol Tartrate (Lopressor) 12.5 mg PO BID [facility] Last Admin: 12/13/17 17:46 Dose: 12.5 mg Zocpl-4-Svki Ethyl Esters (Lovaza) 2 gm PO BID [facility] Last Admin: 12/13/17 17:47 Dose: 2 gm Pneumococcal Polyvalent Vaccine (Pneumovax 23 Vaccine) 0.5 ml IM .ONCE ONE Stop: 12/15/17 10:01 Rosuvastatin Calcium (Crestor) 20 mg PO HS [facility] Last Admin: 12/13/17 21:28 Dose: 20 mg Saccharomyces Boulardii (Florastor) 250 mg PO BID [facility] Last Admin: 12/13/17 17:47 Dose: 250 mg - Labs Labs: 12/13/17 06:53 12/13/17 06:53 PT 11.3 SECONDS (9.7-12.2) 12/11/17 00:48 INR 1.0 12/11/17 00:48 APTT 86 SECONDS (21-34) H D 12/13/17 06:53
[2017-12-14] MEDS: Heparin25000 units/250ml 1/2NS 25,000 UNITS/250 ML BAG IV PRN ×2 (02:29→21:15)
[2017-12-14] MEDS: Levothyroxine 75 MCG TAB PO SCH (06:09)
[2017-12-14 07:55] LABS: BASO % 0.4 % (0.0-2.0); EOS # 0.3 K/uL (0.0-0.7); EOS % 3.3 % (0.0-4.0); HEMOGLOBIN 9.4 g/dL (11.0-16.0); LYMPH # 2.9 K/uL (1.0-4.3); LYMPH % 36.1 % (20.0-40.0); MEAN CELL VOLUME 89.6 fL (81.0-99.0); MEAN CORPUSCULAR HEMOGLOBIN 29.9 pg (27.0-31.0); MEAN CORPUSCULAR HGB CONC 33.4 g/dL (33.0-37.0); MEAN PLATELET VOLUME 7.7 fL (7.2-11.7); MONO # 0.5 K/uL (0.0-0.8); MONO % 6.9 % (0.0-10.0); NEUT # 4.2 K/uL (1.8-7.0); NEUT % 53.3 % (50.0-75.0); NRBC % 0.1 % (0.0-2.0); RBC 3.15 Mil/uL (3.80-5.20); RED CELL DISTRIBUTION WIDTH 14.4 % (11.5-14.5); WHITE BLOOD COUNT 7.9 K/uL (4.8-10.8)
[2017-12-14] MEDS: (Novolin R) Insulin Human Regular 100 units/ml vial SC SCH ×4 (07:57→22:00)
[2017-12-14 08:23] LABS: ALB/GLOB RATIO 1.1 (1.0-2.1); ALBUMIN 3.4 g/dL (3.5-5.0); ALT/SGPT 61 U/L (9-52); AST/SGOT 37 U/L (14-36); BLOOD UREA NITROGEN 20 mg/dL (7-17); CALCIUM 8.3 mg/dl (8.6-10.4); GFR AFRICAN-AMERICAN > 60; GFR NON-AFRICAN AMERICAN 53
[2017-12-14 09:01] LABS: FERRITIN 72.2 ng/mL
[2017-12-14] MEDS: Acetylcysteine 20% Inhal Soln (4ml) PO SCH (09:58)
[2017-12-14] MEDS: Omega-3-Acid Ethyl Esters 1 GM Cap PO SCH ×2 (09:58→18:51)
[2017-12-14] MEDS: Saccharomyces Boulardi 250 mg Cap PO SCH ×2 (09:59→18:43)
--- NOTE | 2017-12-14 10:06 | CP.PCM.PN ---
Subjective - Date & Time of Evaluation Date of Evaluation: 12/14/17 Time of Evaluation: 07:05 - Subjective Subjective: Medicine progress note ( Dr. Horton's service) Patient was seen and examined at bedside. Patient was resting comfortably in bed. Patient denies any acute issues. Patient denies fever, chills, nausea, vomiting, chest pain, SOB, palpitations, diaphoresis and numbness/tingling of the upper and lower extremities. Patient is aware that she is having a cardiac catherization today with Dr. Reece. Objective - Vital Signs/Intake and Output Vital Signs (last 24 hours): Temp Pulse Resp BP Pulse Ox 98.1 F 69 20 129/61 97 12/14/17 07:00 12/14/17 08:22 12/14/17 07:00 12/14/17 07:00 12/14/17 07:00 Intake and Output: 12/14/17 12/14/17 06:59 18:59 Intake Total 250 Balance 250 - Medications Medications: Current Medications Acetylcysteine (Acetylcysteine 20%) 6 ml PO Q12H [facility] Stop: 12/14/17 10:01 Last Admin: 12/13/17 23:00 Dose: 6 ml Albuterol/Ipratropium (Duoneb 3 Mg/0.5 Mg (3 Ml) Ud) 3 ml INH RQ6 PRN PRN Reason: Shortness of Breath Last Admin: 12/13/17 07:15 Dose: 3 ml Aspirin (Ecotrin) 81 mg PO DAILY [facility] Last Admin: 12/13/17 10:53 Dose: 81 mg Clopidogrel Bisulfate (Plavix) 75 mg PO DAILY [facility] Last Admin: 12/13/17 10:54 Dose: 75 mg Dextrose (Dextrose 50% Inj) 0 ml IV STAT PRN; Protocol PRN Reason: Hypoglycemia Protocol Dextrose (Glutose 15) 0 gm PO ONCE PRN; Protocol PRN Reason: Hypoglycemia Protocol Furosemide (Lasix) 20 mg PO DAILY [facility] Last Admin: 12/13/17 10:54 Dose: 20 mg Glucagon (Glucagen Diagnostic Kit) 0 mg IM STAT PRN; Protocol PRN Reason: Hypoglycemia Protocol Azithromycin 500 mg/ Sodium (Chloride) 250 mls @ 250 mls/hr IVPB DAILY [facility] PRN Reason: Protocol Last Admin: 12/13/17 11:45 Dose: 250 mls/hr Ceftriaxone Sodium 1 gm/ (Sodium Chloride) 100 mls @ 100 mls/hr IVPB DAILY [facility] PRN Reason: Protocol Last Admin: 12/13/17 10:45 Dose: 100 mls/hr Heparin Sodium/Sodium Chloride (Heparin 86022 Units/250ml 1/2 Normal Saline) 25 ,000 units in 250 mls @ 8.165 mls/hr IV .Q24H PRN; Protocol; 12 UNITS/KG/HR PRN Reason: PROTOCOL Last Admin: 12/14/17 02:29 Dose: 12 units/kg/hr, 8.165 mls/hr Sodium Chloride (Sodium Chloride 0.9%) 1,000 mls @ 75 mls/hr IV .[id number] [facility] Last Admin: 12/13/17 18:42 Dose: 75 mls/hr Insulin Human Regular (Novolin R) 0 unit SC ACHS [facility] PRN Reason: Protocol Last Admin: 12/14/17 07:57 Dose: Not Given Isosorbide Dinitrate (Isordil) 20 mg PO Q8H [facility] Last Admin: 12/14/17 02:21 Dose: 20 mg Levothyroxine Sodium (Synthroid) 75 mcg PO DAILY@0630 [facility] Last Admin: 12/14/17 06:09 Dose: 75 mcg Metoprolol Tartrate (Lopressor) 12.5 mg PO BID [facility] Last Admin: 12/13/17 17:46 Dose: 12.5 mg [id number] Ethyl Esters (Lovaza) 2 gm PO BID [facility] Last Admin: 12/13/17 17:47 Dose: 2 gm Pneumococcal Polyvalent Vaccine (Pneumovax 23 Vaccine) 0.5 ml IM .ONCE ONE Stop: 12/15/17 10:01 Rosuvastatin Calcium (Crestor) 20 mg PO [facility] Last Admin: 12/13/17 21:28 Dose: 20 mg Saccharomyces Boulardii (Florastor) 250 mg PO BID [facility] Last Admin: 12/13/17 17:47 Dose: 250 mg - Labs Labs: 12/14/17 07:50 12/14/17 07:50 PT 11.3 SECONDS (9.7-12.2) 12/11/17 00:48 INR 1.0 12/11/17 00:48 APTT 81 SECONDS (21-34) H D 12/14/17 07:50 - Constitutional Appears: No Acute Distress - Head Exam Head Exam: ATRAUMATIC, NORMAL INSPECTION - Eye Exam Eye Exam: EOMI, Normal appearance - ENT Exam ENT Exam: Mucous Membranes Moist - Respiratory Exam Respiratory Exam: Clear to Ausculation Bilateral, NORMAL BREATHING PATTERN. absent: Rhonchi, Wheezes, Respiratory Distress - Cardiovascular Exam Cardiovascular Exam: REGULAR RHYTHM, +S1, +S2 - GI/Abdominal Exam GI & Abdominal Exam: Soft, Normal Bowel Sounds. absent: Guarding, Rigid, Tenderness - Extremities Exam Extremities Exam: Normal Inspection - Back Exam Back Exam: NORMAL INSPECTION - Neurological Exam Neurological Exam: Alert, Awake, Oriented x3 - Psychiatric Exam Psychiatric exam: Normal Affect - Skin Skin Exam: Normal Color Assessment and Plan (1) NSTEMI (non-ST elevated myocardial infarction) Assessment & Plan: Consult, [facility], Dr. Reece---> Help appreciated * Management as per recommendation * Plans for cardiac catherization, 12/14/17, will F/U results Labs/Imaging: BLANK positive X4, down trendin.2100--> 1.6900-->1.2100-->0.2780 EKG: Lateral wall ischemia ( T-wave abnormalities) HgbA1C: 6.2 Lipid Panel: TGL:131, Chol:205, LDL: 127 and HDL: 61 TSH: 2.74 and Free T4: 1.10 Echocardiogram: LV is normal. LVEF within normal range. No regional wall abnormalities. Grade 1 abnormal relaxation suggestive of diastolic heart failure. For a complete impression, please refer to the EMR Medications: * Plavix 75mg PO daily * Heparin Drip (Held at 8am for cardiac catherization, 12/14/17) * ASA 81mg PO daily * Crestor 20mg PO HS * Lopressor 12.5mg PO BID * Isosorbide Dinitrate 20mg PO Q8H Status: Acute (2) Congestive heart failure Assessment & Plan: BNP on admission: 5430 Chest X-ray: Mild congestive heart failure * Lasix 20mg PO BID Echocardiogram: LV is normal. LVEF within normal range. No regional wall abnormalities. Grade 1 abnormal relaxation suggestive of diastolic heart failure. For a complete impression, please refer to the EMR Status: Acute (3) Pneumonia Assessment & Plan: Possible underlying pneumonia - urine legionella; urine strep pneumo; mycoplasm; rapid influenza: Negative - Azithromycin 500mg daily (started 12/11/17) - Ceftriaxone 1gm IV q24h (started 12/11/17) - Florastor 250mg PO BID - Repeat chest xray after loss of at least 5-6 lbs to see if antibiotics are really needed, f/u repeat Chest X-ray. if repeat Chest X-ray is not suggestive of pneumonia, discontinue antibiotics Chest X-ray (12/12/17): NO active pulmonary disease Status: Acute (4) Renal insufficiency Assessment & Plan: Resolving -Nephro Consult: Dr. Woodward * should discontinue diuresis on Thursday and start isotonic saline at 75 cc/hr for 12 hrs prior to cardiac cath (scheduled for Thursday) * IVF for contrast prophylaxis for 12h prior to cath * continue to hold ARB for now * avoid nephrotoxic agents (especially NSAIDS) Imaging/Labs: * BUN/Cr: Down trending, continue to monitor with labs * Renal US: Evidence of medical renal disease. No hydronephrosis or nephrolithiasis. Status: Acute (5) Glucose intolerance (impaired glucose tolerance) Assessment & Plan: HbgA1C: 6.2 Accuchecks ISS low dose Heart healthy diet Status: Acute (6) Hypothyroidism Assessment & Plan: TSH: 2.74 and Free T4: 1.10 Continue home medication: Levothyroxine 25meq daily Status: Acute (7) Hypertension Assessment & Plan: Lopressor 12.5mg PO BID Isosorbide Dinitrate 20mg PO Q8H Status: Chronic (8) Hyperlipidemia Assessment & Plan: Lipid Panel: TGL:131, Chol:205, LDL: 127 and HDL: 61 - Continue omega-3 2gm po bid - Crestor 20mg PO HS Status: Acute (9) Prophylactic measure Assessment & Plan: - DVT: Heparin Drip - PT/OT eval for KIRK - Heart Healthy/2gm Na/Renal/Low carb diet Al plans and management discussed with Dr. Horton Status: Acute
[2017-12-14] MEDS: Azithromycin 500 MG in Sodium Chloride 0.9% 250 ML IVPB SCH (10:58)
[2017-12-14] MEDS ORDERED: Lidocaine 2% MPF (5 ml) Inj ONE (14:47)
[2017-12-14] MEDS ORDERED: Iohexol 350mg/ml 100 ML ONE (14:49)
[2017-12-14] MEDS ORDERED: Midazolam 2 MG/2 ML VIAL ONE (15:08)
--- NOTE | 2017-12-14 15:53 | CP.PCM.PN ---
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 Going to [employer] tomorrow Resume diet Stop Plavix Resume Heparin drip from 9pm tonight Objective - Vital Signs/Intake and Output Vital Signs (last 24 hours): Temp Pulse Resp BP Pulse Ox 98.1 F 69 20 129/61 97 12/14/17 07:00 12/14/17 08:22 12/14/17 07:00 12/14/17 07:00 12/14/17 07:00 Intake and Output: 12/14/17 12/14/17 06:59 18:59 Intake Total 250 Balance 250 - Medications Medications: Current Medications Albuterol/Ipratropium (Duoneb 3 Mg/0.5 Mg (3 Ml) Ud) 3 ml INH RQ6 PRN PRN Reason: Shortness of Breath Last Admin: 12/13/17 07:15 Dose: 3 ml Aspirin (Ecotrin) 81 mg PO DAILY [facility] Last Admin: 12/14/17 09:58 Dose: 81 mg Dextrose (Dextrose 50% Inj) 0 ml IV STAT PRN; Protocol PRN Reason: Hypoglycemia Protocol Dextrose (Glutose 15) 0 gm PO ONCE PRN; Protocol PRN Reason: Hypoglycemia Protocol Furosemide (Lasix) 20 mg PO DAILY [facility] Last Admin: 12/13/17 10:54 Dose: 20 mg Glucagon (Glucagen Diagnostic Kit) 0 mg IM STAT PRN; Protocol PRN Reason: Hypoglycemia Protocol Azithromycin 500 mg/ Sodium (Chloride) 250 mls @ 250 mls/hr IVPB DAILY [facility] PRN Reason: Protocol Last Admin: 12/14/17 10:58 Dose: 250 mls/hr Ceftriaxone Sodium 1 gm/ (Sodium Chloride) 100 mls @ 100 mls/hr IVPB DAILY [facility] PRN Reason: Protocol Last Admin: 12/14/17 09:58 Dose: 100 mls/hr Heparin Sodium/Sodium Chloride (Heparin 66131 Units/250ml 1/2 Normal Saline) 25 ,000 units in 250 mls @ 8.165 mls/hr IV .Q24H PRN; Protocol; 12 UNITS/KG/HR PRN Reason: PROTOCOL Last Admin: 12/14/17 02:29 Dose: 12 units/kg/hr, 8.165 mls/hr Sodium Chloride (Sodium Chloride 0.9%) 1,000 mls @ 75 mls/hr IV .[id number] [facility] Last Admin: 12/13/17 18:42 Dose: 75 mls/hr Insulin Human Regular (Novolin R) 0 unit SC ACHS [facility] PRN Reason: Protocol Last Admin: 12/14/17 11:54 Dose: Not Given Isosorbide Dinitrate (Isordil) 20 mg PO Q8H [facility] Last Admin: 12/14/17 09:58 Dose: 20 mg Levothyroxine Sodium (Synthroid) 75 mcg PO DAILY@0630 [facility] Last Admin: 12/14/17 06:09 Dose: 75 mcg Metoprolol Tartrate (Lopressor) 12.5 mg PO BID [facility] Last Admin: 12/14/17 09:58 Dose: 12.5 mg [id number]-[id number] Ethyl Esters (Lovaza) 2 gm PO BID [facility] Last Admin: 12/14/17 09:58 Dose: 2 gm Pneumococcal Polyvalent Vaccine (Pneumovax 23 Vaccine) 0.5 ml IM .ONCE ONE Stop: 12/15/17 10:01 Rosuvastatin Calcium (Crestor) 20 mg PO HS [facility] Last Admin: 12/13/17 21:28 Dose: 20 mg Saccharomyces Boulardii (Florastor) 250 mg PO BID [facility] Last Admin: 12/14/17 09:59 Dose: 250 mg - Labs Labs: 12/14/17 07:50 12/14/17 07:50 PT 11.3 SECONDS (9.7-12.2) 12/11/17 00:48 INR 1.0 12/11/17 00:48 APTT 81 SECONDS (21-34) H D 12/14/17 07:50
--- NOTE | 2017-12-14 16:11 | CP.CCUPN ---
CCU Objective - Vital Signs / Intake & Output Intake and Output (Last 8hrs): Intake & Output 12/14/17 12/14/17 12/14/17 06:59 14:59 22:59 Intake Total 250 Balance 250 Intake: IV 250 - Medications Active Medications: Active Medications Generic Name Dose Route Start Last Admin Trade Name Freq PRN Reason Stop Dose Admin Albuterol/Ipratropium 3 ml 12/11/17 08:00 12/13/17 07:15 Duoneb 3 Mg/0.5 Mg (3 Ml) Ud INH 3 ml RQ6 PRN Administration Shortness of Breath Aspirin 81 mg 12/12/17 10:00 12/14/17 09:58 Ecotrin PO 81 mg DAILY [facility] Administration Dextrose 0 ml 12/11/17 02:26 Dextrose 50% Inj IV STAT PRN Hypoglycemia Protocol Protocol Dextrose 0 gm 12/11/17 02:26 Glutose 15 PO ONCE PRN Hypoglycemia Protocol Protocol Furosemide 20 mg 12/13/17 10:00 12/13/17 10:54 Lasix PO 20 mg DAILY [facility] Administration Glucagon 0 mg 12/11/17 02:26 Glucagen Diagnostic Kit IM STAT PRN Hypoglycemia Protocol Protocol Azithromycin 500 mg/ Sodium 250 mls @ 250 mls/hr 12/11/17 10:00 12/14/17 10: 58 Chloride IVPB 250 mls/hr DAILY [facility] Administration Protocol Ceftriaxone Sodium 1 gm/ 100 mls @ 100 mls/hr 12/11/17 10:00 12/14/17 09:58 Sodium Chloride IVPB 100 mls/hr DAILY [facility] Administration Protocol Heparin Sodium/Sodium Chloride 25,000 units in 250 mls @ 8.165 mls/hr 12:00 12/14/17 02:29 Heparin 37621 Units/250ml 1/2 Normal Saline IV 12 units/kg/hr .Q24H PRN 8.165 mls/hr PROTOCOL Administration Protocol 12 UNITS/KG/HR Sodium Chloride 1,000 mls @ 75 mls/hr 12/13/17 18:00 12/13/17 18:42 Sodium Chloride 0.9% IV 75 mls/hr .[id number] [facility] Administration Insulin Human Regular 0 unit 12/11/17 07:30 12/14/17 11:54 Novolin R SC Not Given ACHS [facility] Protocol Isosorbide Dinitrate 20 mg 12/11/17 10:00 12/14/17 09:58 Isordil PO 20 mg Q8H [facility] Administration Levothyroxine Sodium 75 mcg 12/11/17 06:30 12/14/17 06:09 Synthroid PO 75 mcg DAILY@0630 [facility] Administration Metoprolol Tartrate 12.5 mg 12/11/17 18:00 12/14/17 09:58 Lopressor PO 12.5 mg BID [facility] Administration [id number]-7-Spbd Ethyl Esters 2 gm 12/11/17 10:00 12/14/17 09:58 Lovaza PO 2 gm BID [facility] Administration Pneumococcal Polyvalent Vaccine 0.5 ml 12/15/17 10:00 Pneumovax 23 Vaccine IM 12/15/17 10:01 .ONCE ONE Rosuvastatin Calcium 20 mg 12/11/17 22:00 12/13/17 21:28 Crestor PO 20 mg HS [facility] Administration Saccharomyces Boulardii 250 mg 12/11/17 10:00 12/14/17 09:59 Florastor PO 250 mg BID [facility] Administration - Patient Studies Lab Studies: Microbiology Studies 12/11/17 00:25 Blood Culture - Preliminary Blood NO GROWTH AFTER 3 DAYS 12/11/17 07:48 Blood Culture - Preliminary Blood NO GROWTH AFTER 3 DAYS Lab Studies 12/14/17 12/14/17 12/14/17 Range/Units 11:28 07:50 07:50 WBC (4.8-10.8) K/uL RBC (3.80-5.20) Mil/uL Hgb (11.0-16.0) g/dL Hct (34.0-47.0) % MCV (81.0-99.0) fL MCH (27.0-31.0) pg MCHC (33.0-37.0) g/dL RDW (11.5-14.5) % Plt Count (130-400) K/uL MPV (7.2-11.7) fL Neut % (Auto) (50.0-75.0) % Lymph % (Auto) (20.0-40.0) % Gladwin % (Auto) (0.0-10.0) % Eos % (Auto) (0.0-4.0) % Baso % (Auto) (0.0-2.0) % Neut # (Auto) (1.8-7.0) K/uL Lymph # (Auto) (1.0-4.3) K/uL Gladwin # (Auto) (0.0-0.8) K/uL Eos # (Auto) (0.0-0.7) K/uL Baso # (Auto) (0.0-0.2) K/uL APTT 81 H D (21-34) SECONDS Sodium (132-148) mmol/L Potassium (3.6-5.2) mmol/L Chloride (98-107) mmol/L Carbon Dioxide (22-30) mmol/L Anion Gap (10-20) BUN (7-17) mg/dL Creatinine (0.7-1.2) mg/dL Est GFR ( Amer) Est GFR (Non-Af Amer) POC Glucose (mg/dL) 124 H (65-110) mg/dL Random Glucose (65-105) mg/dL Calcium (8.6-10.4) mg/dl Phosphorus (2.5-4.5) mg/dL Magnesium (1.6-2.3) mg/dL Iron 85 (37-170) ug/dL TIBC 274 (250-450) ug/dL % Saturation 31.0 (20-55) Ferritin ng/mL Total Bilirubin (0.2-1.3) mg/dL AST (14-36) U/L ALT (9-52) U/L Alkaline Phosphatase (38-126) U/L Total Protein (6.3-8.3) g/dL Albumin (3.5-5.0) g/dL Globulin (2.2-3.9) gm/dL Albumin/Globulin Ratio (1.0-2.1) 25-OH Vitamin D Total 25.7 L (30.0-100.0) NG/ML Mycoplasma pneumon IgG (<=0.90) Mycoplasma pneumon IgM (<770) U/mL 12/14/17 12/14/17 12/14/17 Range/Units 07:50 07:50 06:16 WBC 7.9 (4.8-10.8) K/uL RBC 3.15 L (3.80-5.20) Mil/uL Hgb 9.4 L (11.0-16.0) g/dL Hct 28.2 L (34.0-47.0) % MCV 89.6 (81.0-99.0) fL MCH 29.9 (27.0-31.0) pg MCHC 33.4 (33.0-37.0) g/dL RDW 14.4 (11.5-14.5) % Plt Count 228 (130-400) K/uL MPV 7.7 (7.2-11.7) fL Neut % (Auto) 53.3 (50.0-75.0) % Lymph % (Auto) 36.1 (20.0-40.0) % Gladwin % (Auto) 6.9 (0.0-10.0) % Eos % (Auto) 3.3 (0.0-4.0) % Baso % (Auto) 0.4 (0.0-2.0) % Neut # (Auto) 4.2 (1.8-7.0) K/uL Lymph # (Auto) 2.9 (1.0-4.3) K/uL Gladwin # (Auto) 0.5 (0.0-0.8) K/uL Eos # (Auto) 0.3 (0.0-0.7) K/uL Baso # (Auto) 0.0 (0.0-0.2) K/uL APTT (21-34) SECONDS Sodium 141 (132-148) mmol/L Potassium 4.0 (3.6-5.2) mmol/L Chloride 106 (98-107) mmol/L Carbon Dioxide 27 (22-30) mmol/L Anion Gap 12 (10-20) BUN 20 H (7-17) mg/dL Creatinine 1.0 (0.7-1.2) mg/dL Est GFR ( Amer) > 60 Est GFR (Non-Af Amer) 53 POC Glucose (mg/dL) 119 H (65-110) mg/dL Random Glucose 116 H (65-105) mg/dL Calcium 8.3 L (8.6-10.4) mg/dl Phosphorus 2.7 (2.5-4.5) mg/dL Magnesium 2.2 (1.6-2.3) mg/dL Iron (37-170) ug/dL TIBC (250-450) ug/dL % Saturation (20-55) Ferritin 72.2 ng/mL Total Bilirubin 0.5 (0.2-1.3) mg/dL AST 37 H (14-36) U/L ALT 61 H (9-52) U/L Alkaline Phosphatase 59 (38-126) U/L Total Protein 6.5 (6.3-8.3) g/dL Albumin 3.4 L (3.5-5.0) g/dL Globulin 3.0 (2.2-3.9) gm/dL Albumin/Globulin Ratio 1.1 (1.0-2.1) 25-OH Vitamin D Total (30.0-100.0) NG/ML Mycoplasma pneumon IgG (<=0.90) Mycoplasma pneumon IgM (<770) U/mL 12/13/17 12/13/17 12/11/17 Range/Units 21:01 16:48 03:13 WBC (4.8-10.8) K/uL RBC (3.80-5.20) Mil/uL Hgb (11.0-16.0) g/dL Hct (34.0-47.0) % MCV (81.0-99.0) fL MCH (27.0-31.0) pg MCHC (33.0-37.0) g/dL RDW (11.5-14.5) % Plt Count (130-400) K/uL MPV (7.2-11.7) fL Neut % (Auto) (50.0-75.0) % Lymph % (Auto) (20.0-40.0) % Gladwin % (Auto) (0.0-10.0) % Eos % (Auto) (0.0-4.0) % Baso % (Auto) (0.0-2.0) % Neut # (Auto) (1.8-7.0) K/uL Lymph # (Auto) (1.0-4.3) K/uL Gladwin # (Auto) (0.0-0.8) K/uL Eos # (Auto) (0.0-0.7) K/uL Baso # (Auto) (0.0-0.2) K/uL APTT (21-34) SECONDS Sodium (132-148) mmol/L Potassium (3.6-5.2) mmol/L Chloride (98-107) mmol/L Carbon Dioxide (22-30) mmol/L Anion Gap (10-20) BUN (7-17) mg/dL Creatinine (0.7-1.2) mg/dL Est GFR ( Amer) Est GFR (Non-Af Amer) POC Glucose (mg/dL) 100 146 H (65-110) mg/dL Random Glucose (65-105) mg/dL Calcium (8.6-10.4) mg/dl Phosphorus (2.5-4.5) mg/dL Magnesium (1.6-2.3) mg/dL Iron (37-170) ug/dL TIBC (250-450) ug/dL % Saturation (20-55) Ferritin ng/mL Total Bilirubin (0.2-1.3) mg/dL AST (14-36) U/L ALT (9-52) U/L Alkaline Phosphatase (38-126) U/L Total Protein (6.3-8.3) g/dL Albumin (3.5-5.0) g/dL Globulin (2.2-3.9) gm/dL Albumin/Globulin Ratio (1.0-2.1) 25-OH Vitamin D Total (30.0-100.0) NG/ML Mycoplasma pneumon IgG 1.83 H (<=0.90) Mycoplasma pneumon IgM 95 (<770) U/mL Laboratory Results - last 24 hr 12/11/17 12/13/17 12/13/17 03:13 16:48 21:01 WBC RBC Hgb Hct MCV MCH MCHC RDW Plt Count MPV Neut % (Auto) Lymph % (Auto) Gladwin % (Auto) Eos % (Auto) Baso % (Auto) Neut # (Auto) Lymph # (Auto) Gladwin # (Auto) Eos # (Auto) Baso # (Auto) APTT Sodium Potassium Chloride Carbon Dioxide Anion Gap BUN Creatinine Est GFR ( Amer) Est GFR (Non-Af Amer) POC Glucose (mg/dL) 146 H 100 Random Glucose Calcium Phosphorus Magnesium Iron TIBC % Saturation Ferritin Total Bilirubin AST ALT Alkaline Phosphatase Total Protein Albumin Globulin Albumin/Globulin Ratio 25-OH Vitamin D Total Mycoplasma pneumon IgG 1.83 H Mycoplasma pneumon IgM 95 12/14/17 12/14/17 12/14/17 06:16 07:50 07:50 WBC 7.9 RBC 3.15 L Hgb 9.4 L Hct 28.2 L MCV 89.6 MCH 29.9 MCHC 33.4 RDW 14.4 Plt Count 228 MPV 7.7 Neut % (Auto) 53.3 Lymph % (Auto) 36.1 Gladwin % (Auto) 6.9 Eos % (Auto) 3.3 Baso % (Auto) 0.4 Neut # (Auto) 4.2 Lymph # (Auto) 2.9 Gladwin # (Auto) 0.5 Eos # (Auto) 0.3 Baso # (Auto) 0.0 APTT Sodium 141 Potassium 4.0 Chloride 106 Carbon Dioxide 27 Anion Gap 12 BUN 20 H Creatinine 1.0 Est GFR ( Amer) > 60 Est GFR (Non-Af Amer) 53 POC Glucose (mg/dL) 119 H Random Glucose 116 H Calcium 8.3 L Phosphorus 2.7 Magnesium 2.2 Iron TIBC % Saturation Ferritin 72.2 Total Bilirubin 0.5 AST 37 H ALT 61 H Alkaline Phosphatase 59 Total Protein 6.5 Albumin 3.4 L Globulin 3.0 Albumin/Globulin Ratio 1.1 25-OH Vitamin D Total Mycoplasma pneumon IgG Mycoplasma pneumon IgM 12/14/17 12/14/17 12/14/17 07:50 07:50 11:28 WBC RBC Hgb Hct MCV MCH MCHC RDW Plt Count MPV Neut % (Auto) Lymph % (Auto) Gladwin % (Auto) Eos % (Auto) Baso % (Auto) Neut # (Auto) Lymph # (Auto) Gladwin # (Auto) Eos # (Auto) Baso # (Auto) APTT 81 H D Sodium Potassium Chloride Carbon Dioxide Anion Gap BUN Creatinine Est GFR ( Amer) Est GFR (Non-Af Amer) POC Glucose (mg/dL) 124 H Random Glucose Calcium Phosphorus Magnesium Iron 85 TIBC 274 % Saturation 31.0 Ferritin Total Bilirubin AST ALT Alkaline Phosphatase Total Protein Albumin Globulin Albumin/Globulin Ratio 25-OH Vitamin D Total 25.7 L Mycoplasma pneumon IgG Mycoplasma pneumon IgM Fingerstick Blood Sugar Results: 220 Critical Care Progress Note - Nutrition Nutrition: Nutrition Category Date Time Status Heart Healthy Diet [DIET] Diets 12/14/17 Dinner Active NPO Diet [DIET] Diets 12/15/17 Breakfast Ordered
--- NOTE | 2017-12-14 16:22 | CP.PCM.CON ---
<Chioma Myles - Last Filed: 12/14/17 17:30> History of Present Illness - History of Present Illness History of Present Illness: Critical Care Consult Note This is an 82 year old female with PMHx of HF with pEF, HTN, HLD, IGT, CAD with triple vessel disease, Hypothroidism admitted for NSTEMI and Pneumonia. Patient is s/p cardiac catherization with triple vessel disease, normal EF, she is for transfer 12/15 for CABG at [facility] where she will continue to reside for care. Currently groggy from anesthesia. ROS unattainable. PMD: Dr. Christianne Frausto Past Medical History: Hypothyroid; HTN; Gastritis; Diverticulosis Surgical History: Cholecystectomy; umbilical hernia repair; cysts removed from liver and ovary; renal stones removed Medications:gabapentin 100mg tid; Potassium cl ER 1 tab every 3 days; Levothyroxine 75mg AM; omega 3 1gm 2 caps BID; Trazadone 50mg HS prn; Valsartan/ HCTZ 160mg/25mg daily; Verapamil ER 120mg daily Allergies: NKDA Family History: brother - heart disease; dad passed of [place] at the age of 84 Social History: lives with daughter; quit smoking 5 years ago; smoked for about 36 years/2-3 cigarettes per day; denies alcohol or illicit drug use Past Patient History - Infectious Disease Hx of Infectious Diseases: None - Past Medical History & Family History Past Medical History?: Yes - Past Social History Smoking Status: Former Smoker - CARDIAC Hx Hypertension: Yes - PULMONARY Hx Bronchitis: Yes - NEUROLOGICAL Hx Neurological Disorder: No - HEENT Hx HEENT Problems: No - RENAL Hx Chronic Kidney Disease: Yes Hx Kidney Stones: Yes - ENDOCRINE/METABOLIC Hx Hypothyroidism: Yes - MUSCULOSKELETAL/RHEUMATOLOGICAL Hx Falls: Yes (cane at home) - GASTROINTESTINAL Hx Gall Bladder Disease: Yes - PSYCHIATRIC Hx Substance Use: No - SURGICAL HISTORY Hx Surgeries: Yes Hx Cholecystectomy: Yes Other/Comment: ovarian cyst removal - ANESTHESIA Hx Anesthesia: Yes Meds Allergies/Adverse Reactions: Allergies Allergy/AdvReac Type Severity Reaction Status Date / Time No Known Allergies Allergy Verified 12/11/17 00:23 - Medications Medications: Current Medications Albuterol/Ipratropium (Duoneb 3 Mg/0.5 Mg (3 Ml) Ud) 3 ml INH RQ6 PRN PRN Reason: Shortness of Breath Last Admin: 12/13/17 07:15 Dose: 3 ml Aspirin (Ecotrin) 81 mg PO DAILY [facility] Last Admin: 12/14/17 09:58 Dose: 81 mg Dextrose (Dextrose 50% Inj) 0 ml IV STAT PRN; Protocol PRN Reason: Hypoglycemia Protocol Dextrose (Glutose 15) 0 gm PO ONCE PRN; Protocol PRN Reason: Hypoglycemia Protocol Furosemide (Lasix) 20 mg PO DAILY [facility] Last Admin: 12/13/17 10:54 Dose: 20 mg Glucagon (Glucagen Diagnostic Kit) 0 mg IM STAT PRN; Protocol PRN Reason: Hypoglycemia Protocol Azithromycin 500 mg/ Sodium (Chloride) 250 mls @ 250 mls/hr IVPB DAILY [facility] PRN Reason: Protocol Last Admin: 12/14/17 10:58 Dose: 250 mls/hr Ceftriaxone Sodium 1 gm/ (Sodium Chloride) 100 mls @ 100 mls/hr IVPB DAILY [facility] PRN Reason: Protocol Last Admin: 12/14/17 09:58 Dose: 100 mls/hr Heparin Sodium/Sodium Chloride (Heparin 29286 Units/250ml 1/2 Normal Saline) 25 ,000 units in 250 mls @ 8.165 mls/hr IV .Q24H PRN; Protocol; 12 UNITS/KG/HR PRN Reason: PROTOCOL Last Admin: 12/14/17 02:29 Dose: 12 units/kg/hr, 8.165 mls/hr Sodium Chloride (Sodium Chloride 0.9%) 1,000 mls @ 75 mls/hr IV .[id number] [facility] Last Admin: 12/13/17 18:42 Dose: 75 mls/hr Insulin Human Regular (Novolin R) 0 unit SC ACHS [facility] PRN Reason: Protocol Last Admin: 12/14/17 11:54 Dose: Not Given Isosorbide Dinitrate (Isordil) 20 mg PO Q8H [facility] Last Admin: 12/14/17 09:58 Dose: 20 mg Levothyroxine Sodium (Synthroid) 75 mcg PO DAILY@0630 [facility] Last Admin: 12/14/17 06:09 Dose: 75 mcg Metoprolol Tartrate (Lopressor) 12.5 mg PO BID [facility] Last Admin: 12/14/17 09:58 Dose: 12.5 mg [id number]-[id number] Ethyl Esters (Lovaza) 2 gm PO BID [facility] Last Admin: 12/14/17 09:58 Dose: 2 gm Pneumococcal Polyvalent Vaccine (Pneumovax 23 Vaccine) 0.5 ml IM .ONCE ONE Stop: 12/15/17 10:01 Rosuvastatin Calcium (Crestor) 20 mg PO HS [facility] Last Admin: 12/13/17 21:28 Dose: 20 mg Saccharomyces Boulardii (Florastor) 250 mg PO BID [facility] Last Admin: 12/14/17 09:59 Dose: 250 mg Physical Exam - Constitutional Appears: No Acute Distress - Head Exam Head Exam: NORMAL INSPECTION, NORMOCEPHALIC - Eye Exam Eye Exam: EOMI, Normal appearance, PERRL Pupil Exam: NORMAL ACCOMODATION - ENT Exam ENT Exam: Mucous Membranes Moist - Respiratory Exam Respiratory Exam: Clear to Auscultation Bilateral - Cardiovascular Exam Cardiovascular Exam: REGULAR RHYTHM - GI/Abdominal Exam GI & Abdominal Exam: Normal Bowel Sounds, Soft. absent: Distended, Tenderness - Extremities Exam Extremities exam: Positive for: normal inspection, pedal pulses present. Negative for: pedal edema - Neurological Exam Neurological exam: Alert, CN II-XII Intact, Oriented x3 - Psychiatric Exam Psychiatric exam: Normal Affect, Normal Mood - Skin Skin Exam: Dry, Intact, Normal Color, Warm Results - Vital Signs Recent Vital Signs: Last Vital Signs Temp 98.1 F 12/14/17 07:00 Pulse 69 12/14/17 08:22 Resp 20 12/14/17 07:00 BP 129/61 12/14/17 07:00 Pulse Ox 97 12/14/17 07:00 - Labs Result Diagrams: 12/14/17 07:50 12/14/17 07:50 Labs: Laboratory Results - last 24 hr 12/11/17 12/13/17 12/13/17 03:13 16:48 21:01 WBC RBC Hgb Hct MCV MCH MCHC RDW Plt Count MPV Neut % (Auto) Lymph % (Auto) Elk % (Auto) Eos % (Auto) Baso % (Auto) Neut # (Auto) Lymph # (Auto) Elk # (Auto) Eos # (Auto) Baso # (Auto) APTT Sodium Potassium Chloride Carbon Dioxide Anion Gap BUN Creatinine Est GFR ( Amer) Est GFR (Non-Af Amer) POC Glucose (mg/dL) 146 H 100 Random Glucose Calcium Phosphorus Magnesium Iron TIBC % Saturation Ferritin Total Bilirubin AST ALT Alkaline Phosphatase Total Protein Albumin Globulin Albumin/Globulin Ratio 25-OH Vitamin D Total Mycoplasma pneumon IgG 1.83 H Mycoplasma pneumon IgM 95 12/14/17 12/14/17 12/14/17 06:16 07:50 07:50 WBC 7.9 RBC 3.15 L Hgb 9.4 L Hct 28.2 L MCV 89.6 MCH 29.9 MCHC 33.4 RDW 14.4 Plt Count 228 MPV 7.7 Neut % (Auto) 53.3 Lymph % (Auto) 36.1 Elk % (Auto) 6.9 Eos % (Auto) 3.3 Baso % (Auto) 0.4 Neut # (Auto) 4.2 Lymph # (Auto) 2.9 Elk # (Auto) 0.5 Eos # (Auto) 0.3 Baso # (Auto) 0.0 APTT Sodium 141 Potassium 4.0 Chloride 106 Carbon Dioxide 27 Anion Gap 12 BUN 20 H Creatinine 1.0 Est GFR ( Amer) > 60 Est GFR (Non-Af Amer) 53 POC Glucose (mg/dL) 119 H Random Glucose 116 H Calcium 8.3 L Phosphorus 2.7 Magnesium 2.2 Iron TIBC % Saturation Ferritin 72.2 Total Bilirubin 0.5 AST 37 H ALT 61 H Alkaline Phosphatase 59 Total Protein 6.5 Albumin 3.4 L Globulin 3.0 Albumin/Globulin Ratio 1.1 25-OH Vitamin D Total Mycoplasma pneumon IgG Mycoplasma pneumon IgM 12/14/17 12/14/17 12/14/17 07:50 07:50 11:28 WBC RBC Hgb Hct MCV MCH MCHC RDW Plt Count MPV Neut % (Auto) Lymph % (Auto) Elk % (Auto) Eos % (Auto) Baso % (Auto) Neut # (Auto) Lymph # (Auto) Elk # (Auto) Eos # (Auto) Baso # (Auto) APTT 81 H D Sodium Potassium Chloride Carbon Dioxide Anion Gap BUN Creatinine Est GFR ( Amer) Est GFR (Non-Af Amer) POC Glucose (mg/dL) 124 H Random Glucose Calcium Phosphorus Magnesium Iron 85 TIBC 274 % Saturation 31.0 Ferritin Total Bilirubin AST ALT Alkaline Phosphatase Total Protein Albumin Globulin Albumin/Globulin Ratio 25-OH Vitamin D Total 25.7 L Mycoplasma pneumon IgG Mycoplasma pneumon IgM Assessment & Plan - Assessment and Plan (Free Text) Assessment: This is an 82 year old female with PMHx of HF with pEF, HTN, HLD, IGT, CAD with triple vessel disease, Hypothroidism admitted for NSTEMI and Pneumonia. Patient is s/p cardiac catherization with triple vessel disease, normal EF, she is for transfer 12/15 for CABG at [facility] where she will continue to reside for care. Plan: NSTEMI (non-ST elevated myocardial infarction) Assessment & Plan: Consult, [employer] Executive Producer, Dr. Reece---> Help appreciated * Management as per recommendation * s/p cardiac catherization, 12/14/17, - L Main and Triple vessel disease , Patient referred for CABG, Going to [place] tomorrow and will not return to [place]. Labs/Imaging: - BLANK positive X4, down trendin.2100--> 1.6900-->1.2100-->0.2780 - EKG: Lateral wall ischemia ( T-wave abnormalities) - HgbA1C: 6.2 - Lipid Panel: TGL:131, Chol:205, LDL: 127 and HDL: 61 - TSH: 2.74 and Free T4: 1.10 - Echocardiogram: LV is normal. LVEF within normal range. No regional wall abnormalities. Grade 1 abnormal relaxation suggestive of diastolic heart failure. For a complete impression, please refer to the EMR Medications: * Plavix 75mg PO daily - HELD * Heparin Drip * ASA 81mg PO daily * Crestor 20mg PO HS * Lopressor 12.5mg PO BID * Isosorbide Dinitrate 20mg PO Q8H Congestive heart failure BNP on admission: 5430 Chest X-ray: Mild congestive heart failure * Lasix 20mg PO BID Echocardiogram: LV is normal. LVEF within normal range. No regional wall abnormalities. Grade 1 abnormal relaxation suggestive of diastolic heart failure. For a complete impression, please refer to the EMR Pneumonia Possible underlying pneumonia - urine legionella; urine strep pneumo; mycoplasm; rapid influenza: Negative - Azithromycin 500mg daily (started 12/11/17) - Ceftriaxone 1gm IV q24h (started 12/11/17) - Florastor 250mg PO BID - Chest X-ray (12/12/17): NO active pulmonary disease Renal insufficiency Resolving -Nephro Consult: Dr. Woodward * should discontinue diuresis on Thursday and start isotonic saline at 75 cc/hr for 12 hrs prior to cardiac cath (scheduled for Thursday) * IVF for contrast prophylaxis for 12h prior to cath * continue to hold ARB for now * avoid nephrotoxic agents (especially NSAIDS) Imaging/Labs: * BUN/Cr: Down trending, continue to monitor with labs * Renal US: Evidence of medical renal disease. No hydronephrosis or nephrolithiasis. Glucose intolerance (impaired glucose tolerance) HbgA1C: 6.2 Accuchecks ISS low dose Heart healthy diet Hypothyroidism TSH: 2.74 and Free T4: 1.10 Levothyroxine 75mcg daily Hypertension Lopressor 12.5mg PO BID Isosorbide Dinitrate 20mg PO Q8H Hyperlipidemia Lipid Panel: TGL:131, Chol:205, LDL: 127 and HDL: 61 - Continue omega-3 2gm po bid - Crestor 20mg PO HS Prophylactic measure - Pepcid - DVT: Heparin Drip - PT/OT eval for KIRK - Heart Healthy/2gm Na/Renal/Low carb diet Disposition: Patient is for CABG, Going to [place] 12/15 and will not be returning to [facility]. DW Dr. Lopes, Chioma Myles DO, PGY-1 <Earl Lopes - Last Filed: 12/14/17 20:04> Meds - Medications Medications: Current Medications Albuterol/Ipratropium (Duoneb 3 Mg/0.5 Mg (3 Ml) Ud) 3 ml INH RQ6 PRN PRN Reason: Shortness of Breath Last Admin: 12/13/17 07:15 Dose: 3 ml Aspirin (Ecotrin) 81 mg PO DAILY [facility] Last Admin: 12/14/17 09:58 Dose: 81 mg Dextrose (Dextrose 50% Inj) 0 ml IV STAT PRN; Protocol PRN Reason: Hypoglycemia Protocol Dextrose (Glutose 15) 0 gm PO ONCE PRN; Protocol PRN Reason: Hypoglycemia Protocol Famotidine (Pepcid) 20 mg PO DAILY [facility] Furosemide (Lasix) 20 mg PO DAILY [facility] Last Admin: 12/13/17 10:54 Dose: 20 mg Glucagon (Glucagen Diagnostic Kit) 0 mg IM STAT PRN; Protocol PRN Reason: Hypoglycemia Protocol Azithromycin 500 mg/ Sodium (Chloride) 250 mls @ 250 mls/hr IVPB DAILY [facility] PRN Reason: Protocol Last Admin: 12/14/17 10:58 Dose: 250 mls/hr Ceftriaxone Sodium 1 gm/ (Sodium Chloride) 100 mls @ 100 mls/hr IVPB DAILY [facility] PRN Reason: Protocol Last Admin: 12/14/17 09:58 Dose: 100 mls/hr Heparin Sodium/Sodium Chloride (Heparin 48927 Units/250ml 1/2 Normal Saline) 25 ,000 units in 250 mls @ 8.165 mls/hr IV .Q24H PRN; Protocol; 12 UNITS/KG/HR PRN Reason: PROTOCOL Last Admin: 12/14/17 02:29 Dose: 12 units/kg/hr, 8.165 mls/hr Insulin Human Regular (Novolin R) 0 unit SC ACHS [facility] PRN Reason: Protocol Last Admin: 12/14/17 16:30 Dose: Not Given Isosorbide Dinitrate (Isordil) 20 mg PO Q8H [facility] Last Admin: 12/14/17 18:43 Dose: 20 mg Levothyroxine Sodium (Synthroid) 75 mcg PO DAILY@0630 [facility] Last Admin: 12/14/17 06:09 Dose: 75 mcg Metoprolol Tartrate (Lopressor) 12.5 mg PO BID [facility] Last Admin: 12/14/17 18:43 Dose: 12.5 mg Qjojx-6-Tyae Ethyl Esters (Lovaza) 2 gm PO BID [facility] Last Admin: 12/14/17 18:51 Dose: 2 gm Pneumococcal Polyvalent Vaccine (Pneumovax 23 Vaccine) 0.5 ml IM .ONCE ONE Stop: 12/15/17 10:01 Rosuvastatin Calcium (Crestor) 20 mg PO [facility] Last Admin: 12/13/17 21:28 Dose: 20 mg Saccharomyces Boulardii (Florastor) 250 mg PO BID [facility] Last Admin: 12/14/17 18:43 Dose: 250 mg Results - Vital Signs Recent Vital Signs: Last Vital Signs Temp 97.6 F 12/14/17 17:20 Pulse 70 12/14/17 19:50 Resp 11 L 12/14/17 19:50 BP 140/62 12/14/17 19:13 Pulse Ox 96 12/14/17 19:50 - Labs Result Diagrams: 12/14/17 07:50 12/14/17 07:50 Labs: Laboratory Results - last 24 hr 12/13/17 12/14/1718 21:01 06:16 07:50 WBC 7.9 RBC 3.15 L Hgb 9.4 L Hct 28.2 L MCV 89.6 MCH 29.9 MCHC 33.4 RDW 14.4 Plt Count 228 MPV 7.7 Neut % (Auto) 53.3 Lymph % (Auto) 36.1 Elk % (Auto) 6.9 Eos % (Auto) 3.3 Baso % (Auto) 0.4 Neut # (Auto) 4.2 Lymph # (Auto) 2.9 Elk # (Auto) 0.5 Eos # (Auto) 0.3 Baso # (Auto) 0.0 APTT Sodium Potassium Chloride Carbon Dioxide Anion Gap BUN Creatinine Est GFR ( Amer) Est GFR (Non-Af Amer) POC Glucose (mg/dL) 100 119 H Random Glucose Calcium Phosphorus Magnesium Iron TIBC % Saturation Ferritin Total Bilirubin AST ALT Alkaline Phosphatase Total Protein Albumin Globulin Albumin/Globulin Ratio 25-OH Vitamin D Total 12/14/17 12/14/17 12/14/17 07:50 07:50 07:50 WBC RBC Hgb Hct MCV MCH MCHC RDW Plt Count MPV Neut % (Auto) Lymph % (Auto) Elk % (Auto) Eos % (Auto) Baso % (Auto) Neut # (Auto) Lymph # (Auto) Elk # (Auto) Eos # (Auto) Baso # (Auto) APTT 81 H D Sodium 141 Potassium 4.0 Chloride 106 Carbon Dioxide 27 Anion Gap 12 BUN 20 H Creatinine 1.0 Est GFR ( Amer) > 60 Est GFR (Non-Af Amer) 53 POC Glucose (mg/dL) Random Glucose 116 H Calcium 8.3 L Phosphorus 2.7 Magnesium 2.2 Iron 85 TIBC 274 % Saturation 31.0 Ferritin 72.2 Total Bilirubin 0.5 AST 37 H ALT 61 H Alkaline Phosphatase 59 Total Protein 6.5 Albumin 3.4 L Globulin 3.0 Albumin/Globulin Ratio 1.1 25-OH Vitamin D Total 25.7 L 12/14/17 11:28 WBC RBC Hgb Hct MCV MCH MCHC RDW Plt Count MPV Neut % (Auto) Lymph % (Auto) Elk % (Auto) Eos % (Auto) Baso % (Auto) Neut # (Auto) Lymph # (Auto) Elk # (Auto) Eos # (Auto) Baso # (Auto) APTT Sodium Potassium Chloride Carbon Dioxide Anion Gap BUN Creatinine Est GFR ( Amer) Est GFR (Non-Af Amer) POC Glucose (mg/dL) 124 H Random Glucose Calcium Phosphorus Magnesium Iron TIBC % Saturation Ferritin Total Bilirubin AST ALT Alkaline Phosphatase Total Protein Albumin Globulin Albumin/Globulin Ratio 25-OH Vitamin D Total Attending/Attestation - Attestation I have personally seen and examined this patient.: Yes I have fully participated in the care of the patient.: Yes I have reviewed all pertinent clinical information: Yes Notes (Text): 12/14/17 19:58 CCM History as noted by housestaff. Pt with HTN /HYpothyroidism /HLDGastritis / Diverticulitis adm. with NSTEMI /CHF /PNA. Today pt had Cardiac Cath which showed 3V CAD. Pt seen in ICU. Denied chest pain /sob /n /v. Pt to be transferred to [facility] for CABG. ROS- as ntoed All- NKDA Social- Ex-tob/ no etoh or drugs Meds- reviewed FH- Brother-heart dz Alert responisve female, nad NEck- no jvdlungs- bilat bs Heawrt-rr aBd- benign ext- R Groin dressing, no edema, nontender Labs, x-rays, EKG-reviewed A&P s/p Cardiac CAth / 3V CAD NSTEMI HTN CHF r/o PNA HLD Hypothyroidism Gastritis Hx Diverticulitis cont meds cont monitoring Maintain optimal lytes repeat EKG if recurrent pain DVT prophylaxis Tx to [facility] pending d/w housestaff Critical care time spent 35 min
[2017-12-14] MEDS: Sodium Chloride 0.9% 1,000 ML IV SCH (17:10)
--- NOTE | 2017-12-14 19:40 | CP.PCM.PN ---
Objective - Vital Signs/Intake and Output Vital Signs (last 24 hours): Temp Pulse Resp BP Pulse Ox 98.1 F 69 20 129/61 97 12/14/17 07:00 12/14/17 08:22 12/14/17 07:00 12/14/17 07:00 12/14/17 07:00 - Medications Medications: Current Medications Albuterol/Ipratropium (Duoneb 3 Mg/0.5 Mg (3 Ml) Ud) 3 ml INH RQ6 PRN PRN Reason: Shortness of Breath Last Admin: 12/13/17 07:15 Dose: 3 ml Aspirin (Ecotrin) 81 mg PO DAILY [facility] Last Admin: 12/14/17 09:58 Dose: 81 mg Dextrose (Dextrose 50% Inj) 0 ml IV STAT PRN; Protocol PRN Reason: Hypoglycemia Protocol Dextrose (Glutose 15) 0 gm PO ONCE PRN; Protocol PRN Reason: Hypoglycemia Protocol Famotidine (Pepcid) 20 mg PO DAILY [facility] Furosemide (Lasix) 20 mg PO DAILY [facility] Last Admin: 12/13/17 10:54 Dose: 20 mg Glucagon (Glucagen Diagnostic Kit) 0 mg IM STAT PRN; Protocol PRN Reason: Hypoglycemia Protocol Azithromycin 500 mg/ Sodium (Chloride) 250 mls @ 250 mls/hr IVPB DAILY [facility] PRN Reason: Protocol Last Admin: 12/14/17 10:58 Dose: 250 mls/hr Ceftriaxone Sodium 1 gm/ (Sodium Chloride) 100 mls @ 100 mls/hr IVPB DAILY [facility] PRN Reason: Protocol Last Admin: 12/14/17 09:58 Dose: 100 mls/hr Heparin Sodium/Sodium Chloride (Heparin 61680 Units/250ml 1/2 Normal Saline) 25 ,000 units in 250 mls @ 8.165 mls/hr IV .Q24H PRN; Protocol; 12 UNITS/KG/HR PRN Reason: PROTOCOL Last Admin: 12/14/17 02:29 Dose: 12 units/kg/hr, 8.165 mls/hr Insulin Human Regular (Novolin R) 0 unit SC ACHS [facility] PRN Reason: Protocol Last Admin: 12/14/17 16:30 Dose: Not Given Isosorbide Dinitrate (Isordil) 20 mg PO Q8H [facility] Last Admin: 12/14/17 18:43 Dose: 20 mg Levothyroxine Sodium (Synthroid) 75 mcg PO DAILY@0630 [facility] Last Admin: 12/14/17 06:09 Dose: 75 mcg Metoprolol Tartrate (Lopressor) 12.5 mg PO BID [facility] Last Admin: 12/14/17 18:43 Dose: 12.5 mg Xglqq-4-Hiib Ethyl Esters (Lovaza) 2 gm PO BID [facility] Last Admin: 12/14/17 18:51 Dose: 2 gm Pneumococcal Polyvalent Vaccine (Pneumovax 23 Vaccine) 0.5 ml IM .ONCE ONE Stop: 12/15/17 10:01 Rosuvastatin Calcium (Crestor) 20 mg PO [facility] Last Admin: 12/13/17 21:28 Dose: 20 mg Saccharomyces Boulardii (Florastor) 250 mg PO BID [facility] Last Admin: 12/14/17 18:43 Dose: 250 mg - Labs Labs: 12/14/17 07:50 12/14/17 07:50 PT 11.3 SECONDS (9.7-12.2) 12/11/17 00:48 INR 1.0 12/11/17 00:48 APTT 81 SECONDS (21-34) H D 12/14/17 07:50 Assessment and Plan (1) Renal insufficiency Assessment & Plan: Relatively mild renal insufficiency; on IVF for contrast prophylaxis, discontinuing post cath; -monitor for NNAMDI post cath -avoid nephrotoxic agents; Status: Acute (2) Congestive heart failure Assessment & Plan: Mild CHF exacerbation; volume excess on exam today prior to cath (due to us giving IVF prophylactically); stopping IVF post-cath; can resume diuretics from tomorrow (lasix 20 mg PO bid); Status: Acute (3) NSTEMI (non-ST elevated myocardial infarction) Status: Acute (4) Hypertension Status: Chronic
--- NOTE | 2017-12-15 03:33 | CARDCATH ---
PROCEDURE DATE: 12/14/2017 CLINICAL INDICATIONS: Chest pain, non-ST elevation myocardial infarction, hypertension, hyperlipidemia, hypothyroidism. REFERRING PHYSICIAN: Joaquín Horton DO PERFORMING PHYSICIAN: Micheal Reece MD CLINICAL HISTORY: Citlali Dyer is an 82-year-old female with history of hypertension, hyperlipidemia, hypothyroidism, admitted to [facility] with recurrent chest pain. Upon admission, the patient has elevated troponin. The patient was treated with anti-ischemic therapy with aspirin, Plavix and IV heparin. The patient is brought to laboratory animal caretaker today for cardiac catheterization. DESCRIPTION OF PROCEDURE: After informed consent, the patient was prepped and draped in the usual sterile fashion. Lidocaine 2% was given in the right groin for local anesthesia. Using micropuncture technique, 6-Argentine sheath was introduced into the right common femoral artery. A 5 Argentine JL4 6-Argentine diagnostic catheter engaged into left main coronary artery. There was a dampening of the pressure. Left coronary angiogram was performed. Then JR4 6-Argentine diagnostic catheter crossed into the left ventricle across the aortic valve. LV end-diastolic pressure was measured. Contrast was injected and LV angiogram was done. Then the catheter was pulled back across the aortic valve. Gradient across the aortic valve was measured. Then the same catheter was engaged into the right coronary artery. Contrast was injected and right coronary angiogram was done. The patient tolerated the procedure well. FINDINGS: 1. Left main coronary artery has a distal 60% to 70% stenosis. There is also dampening of the pressure with 5-Argentine JL catheter. 2. Ostial LAD has 90% to 95% stenosis. Mid LAD has 40% stenosis. Distal LAD is patent. 3. Left circumflex has 90% mid stenosis. Large OM branch has ostial 90% stenosis. 4. Right coronary artery is a codominant system. Mid to distal right coronary artery has a 60% to 70% stenosis. 5. LV ejection fraction is slightly decreased. Estimated EF is 40%. There is apical hypokinesis. EDP is 31. No gradient across the aortic valve. IMPRESSION: 1. Left main and triple vessel coronary artery disease. 2. Status post non-ST elevation myocardial infarction. 3. Mildly reduced left ventricular systolic function with estimated EF of 40%. Recommend coronary artery bypass surgery. Micheal Reece MD [facility] # [id number]
[2017-12-15] MEDS: Levothyroxine 75 MCG TAB PO SCH (06:10)
[2017-12-15 07:14] LABS: BASO # 0.1 K/uL (0.0-0.2); BASO % 1.1 % (0.0-2.0); EOS # 0.3 K/uL (0.0-0.7); EOS % 4.2 % (0.0-4.0); HEMOGLOBIN 9.6 g/dL (11.0-16.0); LYMPH # 2.5 K/uL (1.0-4.3); LYMPH % 33.6 % (20.0-40.0); MEAN CELL VOLUME 88.8 fL (81.0-99.0); MEAN CORPUSCULAR HEMOGLOBIN 30.2 pg (27.0-31.0); MEAN PLATELET VOLUME 7.6 fL (7.2-11.7); MONO # 0.6 K/uL (0.0-0.8); MONO % 7.4 % (0.0-10.0); NEUT % 53.7 % (50.0-75.0); RBC 3.17 Mil/uL (3.80-5.20); RED CELL DISTRIBUTION WIDTH 14.2 % (11.5-14.5); WHITE BLOOD COUNT 7.4 K/uL (4.8-10.8)
[2017-12-15 07:40] LABS: ALB/GLOB RATIO 1.1 (1.0-2.1); ALBUMIN 3.4 g/dL (3.5-5.0); ALT/SGPT 61 U/L (9-52); AST/SGOT 43 U/L (14-36); BLOOD UREA NITROGEN 16 mg/dL (7-17); CALCIUM 8.6 mg/dl (8.6-10.4); GFR AFRICAN-AMERICAN > 60; GFR NON-AFRICAN AMERICAN 53
[2017-12-15] MEDS: (Novolin R) Insulin Human Regular 100 units/ml vial SC SCH ×2 (07:55→11:20)
[2017-12-15] MEDS ORDERED: Pneumococcal 23-Valent Vaccine IM ONE (10:00)
[2017-12-15 10:16] VITALS: O2SAT 98
[2017-12-15] MEDS: Saccharomyces Boulardi 250 mg Cap PO SCH (10:18)
[2017-12-15] MEDS: Omega-3-Acid Ethyl Esters 1 GM Cap PO SCH (10:18)
[2017-12-15] MEDS: Azithromycin 500 MG in Sodium Chloride 0.9% 250 ML IVPB SCH (11:15)
--- NOTE | 2017-12-15 11:42 | CP.CCUPN ---
CCU Subjective - Physician Review Subjective (Free Text): Patient seen and examined at bedside. No acute complaints. CCU Objective - Vital Signs / Intake & Output Vital Signs (Last 4 hours): Vital Signs Temp Pulse Resp BP Pulse Ox 12/15/17 10:19 113/62 12/15/17 10:02 72 15 113/62 98 12/15/17 10:00 70 12 99 12/15/17 09:02 79 11 L 129/58 L 86 L 12/15/17 09:00 65 12 96 12/15/17 08:02 68 14 135/53 L 97 12/15/17 08:00 98.4 F 69 16 98 Intake and Output (Last 8hrs): Intake & Output 12/14/17 12/15/17 12/15/17 22:59 06:59 14:59 Intake Total 581.4 305.6 141.0 Output Total 950 600 300 Balance -368.6 -294.4 -159.0 Weight 154 lb 5.177 oz Intake: IV 250 Intake, IV Amount 91.4 65.6 141.0 Left Forearm 91.4 65.6 41.0 Right Antecubital 100 Oral 240 240 0 Output: Urine 950 600 300 Urine, Voided 950 600 300 Emesis 0 Other: # Voids Urine, Voided 1 1 # Bowel Movements 0 - Physical Exam Other physical findings (Free Text): - Constitutional Appears: No Acute Distress - Head Exam Head Exam: NORMAL INSPECTION, NORMOCEPHALIC - Eye Exam Eye Exam: EOMI, Normal appearance, PERRL Pupil Exam: NORMAL ACCOMODATION - ENT Exam ENT Exam: Mucous Membranes Moist - Respiratory Exam Respiratory Exam: Clear to Auscultation Bilateral - Cardiovascular Exam Cardiovascular Exam: REGULAR RHYTHM - GI/Abdominal Exam GI & Abdominal Exam: Normal Bowel Sounds, Soft. absent: Distended, Tenderness - Extremities Exam Extremities exam: Positive for: normal inspection, pedal pulses present. Negative for: pedal edema - Neurological Exam Neurological exam: Alert, CN II-XII Intact, Oriented x3 - Psychiatric Exam Psychiatric exam: Normal Affect, Normal Mood - Skin Skin Exam: Dry, Intact, Normal Color, Warm - Medications Active Medications: Active Medications Generic Name Dose Route Start Last Admin Trade Name Freq PRN Reason Stop Dose Admin Albuterol/Ipratropium 3 ml 12/11/17 08:00 12/13/17 07:15 Duoneb 3 Mg/0.5 Mg (3 Ml) Ud INH 3 ml RQ6 PRN Administration Shortness of Breath Aspirin 81 mg 12/12/17 10:00 12/15/17 10:26 Ecotrin PO 81 mg DAILY ANGELINE Administration Dextrose 0 ml 12/11/17 02:26 Dextrose 50% Inj IV STAT PRN Hypoglycemia Protocol Protocol Dextrose 0 gm 12/11/17 02:26 Glutose 15 PO ONCE PRN Hypoglycemia Protocol Protocol Famotidine 20 mg 12/15/17 10:00 12/15/17 10:19 Pepcid PO 20 mg DAILY ANGELINE Administration Furosemide 20 mg 12/15/17 10:00 12/15/17 10:19 Lasix PO 20 mg BID ANGELINE Administration Glucagon 0 mg 12/11/17 02:26 Glucagen Diagnostic Kit IM STAT PRN Hypoglycemia Protocol Protocol Azithromycin 500 mg/ Sodium 250 mls @ 250 mls/hr 12/11/17 10:00 12/15/17 11: 15 Chloride IVPB 250 mls/hr DAILY ANGELINE Administration Protocol Ceftriaxone Sodium 1 gm/ 100 mls @ 100 mls/hr 12/11/17 10:00 12/15/17 10:05 Sodium Chloride IVPB 100 mls/hr DAILY ANGELINE Administration Protocol Heparin Sodium/Sodium Chloride 25,000 units in 250 mls @ 8.165 mls/hr 12:00 12/14/17 21:15 Heparin 94251 Units/250ml 1/2 Normal Saline IV 12 units/kg/hr .Q24H PRN 8.165 mls/hr PROTOCOL Administration Protocol 12 UNITS/KG/HR Insulin Human Regular 0 unit 12/11/17 07:30 12/15/17 11:20 Novolin R SC Not Given ACHS ANGELINE Protocol Isosorbide Dinitrate 20 mg 12/11/17 10:00 12/15/17 10:18 Isordil PO 20 mg Q8H ANGELINE Administration Levothyroxine Sodium 75 mcg 12/11/17 06:30 12/15/17 06:10 Synthroid PO 75 mcg DAILY@0630 ANGELINE Administration Metoprolol Tartrate 12.5 mg 12/11/17 18:00 12/15/17 10:18 Lopressor PO 12.5 mg BID ANGELINE Administration [id number] Ethyl Esters 2 gm 12/11/17 10:00 12/15/17 10:18 Lovaza PO 2 gm BID ANGELINE Administration Rosuvastatin Calcium 20 mg 12/11/17 22:00 12/14/17 21:00 Crestor PO 20 mg HS ANGELINE Administration Saccharomyces Boulardii 250 mg 12/11/17 10:00 12/15/17 10:18 Florastor PO 250 mg BID ANGELINE Administration - Patient Studies Lab Studies: Microbiology Studies 12/11/17 00:25 Blood Culture - Preliminary Blood NO GROWTH AFTER 4 DAYS 12/11/17 07:48 Blood Culture - Preliminary Blood NO GROWTH AFTER 4 DAYS Lab Studies 12/15/17 12/15/17 12/15/17 Range/Units 11:11 07:10 07:10 WBC (4.8-10.8) K/uL RBC (3.80-5.20) Mil/uL Hgb (11.0-16.0) g/dL Hct (34.0-47.0) % MCV (81.0-99.0) fL MCH (27.0-31.0) pg MCHC (33.0-37.0) g/dL RDW (11.5-14.5) % Plt Count (130-400) K/uL MPV (7.2-11.7) fL Neut % (Auto) (50.0-75.0) % Lymph % (Auto) (20.0-40.0) % [place] % (Auto) (0.0-10.0) % Eos % (Auto) (0.0-4.0) % Baso % (Auto) (0.0-2.0) % Neut # (Auto) (1.8-7.0) K/uL Lymph # (Auto) (1.0-4.3) K/uL [place] # (Auto) (0.0-0.8) K/uL Eos # (Auto) (0.0-0.7) K/uL Baso # (Auto) (0.0-0.2) K/uL APTT 68 H D (21-34) SECONDS Sodium 139 (132-148) mmol/L Potassium 4.0 (3.6-5.2) mmol/L Chloride 107 (98-107) mmol/L Carbon Dioxide 27 (22-30) mmol/L Anion Gap 9 L (10-20) BUN 16 (7-17) mg/dL Creatinine 1.0 (0.7-1.2) mg/dL Est GFR ( Amer) > 60 Est GFR (Non-Af Amer) 53 POC Glucose (mg/dL) 120 H (65-110) mg/dL Random Glucose 109 H (65-105) mg/dL Calcium 8.6 (8.6-10.4) mg/dl Phosphorus 3.2 (2.5-4.5) mg/dL Magnesium 2.2 (1.6-2.3) mg/dL Total Bilirubin 0.4 (0.2-1.3) mg/dL AST 43 H (14-36) U/L ALT 61 H (9-52) U/L Alkaline Phosphatase 64 (38-126) U/L Total Protein 6.5 (6.3-8.3) g/dL Albumin 3.4 L (3.5-5.0) g/dL Globulin 3.1 (2.2-3.9) gm/dL Albumin/Globulin Ratio 1.1 (1.0-2.1) 12/15/17 12/15/17 12/14/17 Range/Units 07:10 07:07 21:34 WBC 7.4 (4.8-10.8) K/uL RBC 3.17 L (3.80-5.20) Mil/uL Hgb 9.6 L (11.0-16.0) g/dL Hct 28.1 L (34.0-47.0) % MCV 88.8 (81.0-99.0) fL MCH 30.2 (27.0-31.0) pg MCHC 34.0 (33.0-37.0) g/dL RDW 14.2 (11.5-14.5) % Plt Count 236 (130-400) K/uL MPV 7.6 (7.2-11.7) fL Neut % (Auto) 53.7 (50.0-75.0) % Lymph % (Auto) 33.6 (20.0-40.0) % [place] % (Auto) 7.4 (0.0-10.0) % Eos % (Auto) 4.2 H (0.0-4.0) % Baso % (Auto) 1.1 (0.0-2.0) % Neut # (Auto) 4.0 (1.8-7.0) K/uL Lymph # (Auto) 2.5 (1.0-4.3) K/uL [place] # (Auto) 0.6 (0.0-0.8) K/uL Eos # (Auto) 0.3 (0.0-0.7) K/uL Baso # (Auto) 0.1 (0.0-0.2) K/uL APTT (21-34) SECONDS Sodium (132-148) mmol/L Potassium (3.6-5.2) mmol/L Chloride (98-107) mmol/L Carbon Dioxide (22-30) mmol/L Anion Gap (10-20) BUN (7-17) mg/dL Creatinine (0.7-1.2) mg/dL Est GFR ( Amer) Est GFR (Non-Af Amer) POC Glucose (mg/dL) 120 H 104 (65-110) mg/dL Random Glucose (65-105) mg/dL Calcium (8.6-10.4) mg/dl Phosphorus (2.5-4.5) mg/dL Magnesium (1.6-2.3) mg/dL Total Bilirubin (0.2-1.3) mg/dL AST (14-36) U/L ALT (9-52) U/L Alkaline Phosphatase (38-126) U/L Total Protein (6.3-8.3) g/dL Albumin (3.5-5.0) g/dL Globulin (2.2-3.9) gm/dL Albumin/Globulin Ratio (1.0-2.1) Laboratory Results - last 24 hr 12/14/17 12/15/17 12/15/17 21:34 07:07 07:10 WBC 7.4 RBC 3.17 L Hgb 9.6 L Hct 28.1 L MCV 88.8 MCH 30.2 MCHC 34.0 RDW 14.2 Plt Count 236 MPV 7.6 Neut % (Auto) 53.7 Lymph % (Auto) 33.6 [place] % (Auto) 7.4 Eos % (Auto) 4.2 H Baso % (Auto) 1.1 Neut # (Auto) 4.0 Lymph # (Auto) 2.5 [place] # (Auto) 0.6 Eos # (Auto) 0.3 Baso # (Auto) 0.1 APTT Sodium Potassium Chloride Carbon Dioxide Anion Gap BUN Creatinine Est GFR ( Amer) Est GFR (Non-Af Amer) POC Glucose (mg/dL) 104 120 H Random Glucose Calcium Phosphorus Magnesium Total Bilirubin AST ALT Alkaline Phosphatase Total Protein Albumin Globulin Albumin/Globulin Ratio 12/15/17 12/15/17 12/15/17 07:10 07:10 11:11 WBC RBC Hgb Hct MCV MCH MCHC RDW Plt Count MPV Neut % (Auto) Lymph % (Auto) [place] % (Auto) Eos % (Auto) Baso % (Auto) Neut # (Auto) Lymph # (Auto) [place] # (Auto) Eos # (Auto) Baso # (Auto) APTT 68 H D Sodium 139 Potassium 4.0 Chloride 107 Carbon Dioxide 27 Anion Gap 9 L BUN 16 Creatinine 1.0 Est GFR ( Amer) > 60 Est GFR (Non-Af Amer) 53 POC Glucose (mg/dL) 120 H Random Glucose 109 H Calcium 8.6 Phosphorus 3.2 Magnesium 2.2 Total Bilirubin 0.4 AST 43 H ALT 61 H Alkaline Phosphatase 64 Total Protein 6.5 Albumin 3.4 L Globulin 3.1 Albumin/Globulin Ratio 1.1 Fingerstick Blood Sugar Results: 120 Critical Care Progress Note - Nutrition Nutrition: Nutrition Category Date Time Status NPO Diet [DIET] Diets 12/15/17 Breakfast Active Assessment/Plan - Assessment and Plan (Free Text) Assessment: This is an 82 year old female with PMHx of HF with pEF, HTN, HLD, IGT, CAD with triple vessel disease, Hypothroidism admitted for NSTEMI and Pneumonia. Patient is s/p cardiac catherization with triple vessel disease, normal EF, she is for transfer 12/15 for CABG at [facility] where she will continue to reside for care. Plan: NSTEMI (non-ST elevated myocardial infarction) Assessment & Plan: Consult, Manager Pet, Dr. Reece---> Help appreciated * Management as per recommendation * s/p cardiac catherization, 12/14/17, - L Main and Triple vessel disease , Patient referred for CABG, * Going to [place] 12/15 and will not return to [facility]. Labs/Imaging: - BLANK positive X4, down trendin.2100--> 1.6900-->1.2100-->0.2780 - EKG: Lateral wall ischemia ( T-wave abnormalities) - HgbA1C: 6.2 - Lipid Panel: TGL:131, Chol:205, LDL: 127 and HDL: 61 - TSH: 2.74 and Free T4: 1.10 - Echocardiogram: LV is normal. LVEF within normal range. No regional wall abnormalities. Grade 1 abnormal relaxation suggestive of diastolic heart failure. For a complete impression, please refer to the EMR Medications: * Plavix 75mg PO daily - HELD * Heparin Drip * ASA 81mg PO daily * Crestor 20mg PO HS * Lopressor 12.5mg PO BID * Isosorbide Dinitrate 20mg PO Q8H Congestive heart failure BNP on admission: 5430 Chest X-ray: Mild congestive heart failure * Lasix 20mg PO BID Echocardiogram: LV is normal. LVEF within normal range. No regional wall abnormalities. Grade 1 abnormal relaxation suggestive of diastolic heart failure. For a complete impression, please refer to the EMR Pneumonia Possible underlying pneumonia - urine legionella; urine strep pneumo; mycoplasm; rapid influenza: Negative - Azithromycin 500mg daily (started 12/11/17) - Ceftriaxone 1gm IV q24h (started 12/11/17) - Florastor 250mg PO BID - Chest X-ray (12/12/17): NO active pulmonary disease Renal insufficiency Resolving -Nephro Consult: Dr. Woodward * should discontinue diuresis on Thursday and start isotonic saline at 75 cc/hr for 12 hrs prior to cardiac cath (scheduled for Thursday) * IVF for contrast prophylaxis for 12h prior to cath * continue to hold ARB for now * avoid nephrotoxic agents (especially NSAIDS) Imaging/Labs: * BUN/Cr: Down trending, continue to monitor with labs * Renal US: Evidence of medical renal disease. No hydronephrosis or nephrolithiasis. Glucose intolerance (impaired glucose tolerance) HbgA1C: 6.2 Accuchecks ISS low dose Heart healthy diet Hypothyroidism TSH: 2.74 and Free T4: 1.10 Levothyroxine 75mcg daily Hypertension Lopressor 12.5mg PO BID Isosorbide Dinitrate 20mg PO Q8H Hyperlipidemia Lipid Panel: TGL:131, Chol:205, LDL: 127 and HDL: 61 - Continue omega-3 2gm po bid - Crestor 20mg PO HS Prophylactic measure - Pepcid - DVT: Heparin Drip - PT/OT eval for KIRK - Heart Healthy/2gm Na/Renal/Low carb diet Disposition: Patient is for CABG, Going to [place] 12/15 and will not be returning to [facility]. DW Dr. Huang, Chioma Myles DO, PGY-1
--- NOTE | 2017-12-15 12:08 | CARD ---
APPROVED REPORT EKG Measurement Heart [id number] <Conclusion> Normal sinus rhythm Nonspecific T wave abnormality Prolonged QT Abnormal ECG
[2017-12-15 13:35] VITALS: BP 128/56; PULSE 65; RESP 14
[2017-12-15 13:41] VITALS: TEMP 97.9
--- NOTE | 2017-12-15 18:10 | CP.PCM.DIS ---
<Neil Schwarz E - Last Filed: 12/15/17 18:13> Provider - Provider Date of Admission: 12/11/17 01:31 Attending physician: Joaquín Horton DO Time Spent in preparation of Discharge (in minutes): 45 Diagnosis - Discharge Diagnosis (1) NSTEMI (non-ST elevated myocardial infarction) Status: Acute (2) Congestive heart failure Status: Acute (3) Pneumonia Status: Acute (4) Renal insufficiency Status: Acute (5) Glucose intolerance (impaired glucose tolerance) Status: Acute (6) Hypothyroidism Status: Acute (7) Hypertension Status: Chronic (8) Hyperlipidemia Status: Acute (9) Prophylactic measure Status: Acute Hospital Course - Lab Results Lab Results: Micro Results 12/11/17 00:25 Blood Blood Culture - Preliminary NO GROWTH AFTER 4 DAYS 12/11/17 07:48 Blood Blood Culture - Preliminary NO GROWTH AFTER 4 DAYS Most Recent Lab Values WBC 7.4 K/uL (4.8-10.8) 12/15/17 07:10 RBC 3.17 Mil/uL (3.80-5.20) L 12/15/17 07:10 Hgb 9.6 g/dL (11.0-16.0) L 12/15/17 07:10 Hct 28.1 % (34.0-47.0) L 12/15/17 07:10 MCV 88.8 fL (81.0-99.0) 12/15/17 07:10 MCH 30.2 pg (27.0-31.0) 12/15/17 07:10 MCHC 34.0 g/dL (33.0-37.0) 12/15/17 07:10 RDW 14.2 % (11.5-14.5) 12/15/17 07:10 Plt Count 236 K/uL (130-400) 12/15/17 07:10 MPV 7.6 fL (7.2-11.7) 12/15/17 07:10 Neut % (Auto) 53.7 % (50.0-75.0) 12/15/17 07:10 Lymph % (Auto) 33.6 % (20.0-40.0) 12/15/17 07:10 Snyder % (Auto) 7.4 % (0.0-10.0) 12/15/17 07:10 Eos % (Auto) 4.2 % (0.0-4.0) H 12/15/17 07:10 Baso % (Auto) 1.1 % (0.0-2.0) 12/15/17 07:10 Neut # (Auto) 4.0 K/uL (1.8-7.0) 12/15/17 07:10 Lymph # (Auto) 2.5 K/uL (1.0-4.3) 12/15/17 07:10 Snyder # (Auto) 0.6 K/uL (0.0-0.8) 12/15/17 07:10 Eos # (Auto) 0.3 K/uL (0.0-0.7) 12/15/17 07:10 Baso # (Auto) 0.1 K/uL (0.0-0.2) 12/15/17 07:10 Neutrophils % (Manual) 88 % (50-75) H 12/11/17 07:48 Lymphocytes % (Manual) 9 % (20-40) L 12/11/17 07:48 Monocytes % (Manual) 2 % (0-10) 12/11/17 07:48 Platelet Estimate Normal (NORMAL) 12/11/17 07:48 Giant Platelets Present 12/11/17 07:48 Hypochromasia (manual) Slight 12/11/17 07:48 Poikilocytosis (manual Slight 12/11/17 07:48 Anisocytosis (manual) Slight 12/11/17 07:48 PT 11.3 SECONDS (9.7-12.2) 12/11/17 00:48 INR 1.0 12/11/17 00:48 APTT 68 SECONDS (21-34) H D 12/15/17 07:10 Sodium 139 mmol/L (132-148) 12/15/17 07:10 Potassium 4.0 mmol/L (3.6-5.2) 12/15/17 07:10 Chloride 107 mmol/L (98-107) 12/15/17 07:10 Carbon Dioxide 27 mmol/L (22-30) 12/15/17 07:10 Anion Gap 9 (10-20) L 12/15/17 07:10 BUN 16 mg/dL (7-17) 12/15/17 07:10 Creatinine 1.0 mg/dL (0.7-1.2) 12/15/17 07:10 Est GFR ( Amer) > 60 12/15/17 07:10 Est GFR (Non-Af Amer) 53 12/15/17 07:10 POC Glucose (mg/dL) 120 mg/dL (65-110) H 12/15/17 11:11 Random Glucose 109 mg/dL (65-105) H 12/15/17 07:10 Hemoglobin A1c 6.2 % (4.2-6.5) 12/11/17 07:48 Calcium 8.6 mg/dl (8.6-10.4) 12/15/17 07:10 Phosphorus 3.2 mg/dL (2.5-4.5) 12/15/17 07:10 Magnesium 2.2 mg/dL (1.6-2.3) 12/15/17 07:10 Iron 85 ug/dL (37-170) 12/14/17 07:50 TIBC 274 ug/dL (250-450) 12/14/17 07:50 % Saturation 31.0 (20-55) 12/14/17 07:50 Ferritin 72.2 ng/mL 12/14/17 07:50 Total Bilirubin 0.4 mg/dL (0.2-1.3) 12/15/17 07:10 AST 43 U/L (14-36) H 12/15/17 07:10 ALT 61 U/L (9-52) H 12/15/17 07:10 Alkaline Phosphatase 64 U/L (38-126) 12/15/17 07:10 Total Creatine Kinase 40 U/L (30-135) 12/13/17 11:16 CK-MB (Mass) 1.62 ng/mL (0.0-3.38) 12/13/17 11:16 Troponin I 0.2780 ng/mL (0.00-0.120) H* 12/13/17 11:16 NT-Pro-B Natriuret Pep 5430 pg/mL (0-900) H 12/11/17 00:48 Total Protein 6.5 g/dL (6.3-8.3) 12/15/17 07:10 Albumin 3.4 g/dL (3.5-5.0) L 12/15/17 07:10 Globulin 3.1 gm/dL (2.2-3.9) 12/15/17 07:10 Albumin/Globulin Ratio 1.1 (1.0-2.1) 12/15/17 07:10 Triglycerides 131 mg/dL (0-149) 12/11/17 07:48 Cholesterol 205 mg/dL (0-199) H 12/11/17 07:48 LDL Cholesterol Direct 127 mg/dL (0-129) 12/11/17 07:48 HDL Cholesterol 61 mg/dL (30-70) 12/11/17 07:48 Lipase 113 U/L (23-300) 12/11/17 00:48 25-OH Vitamin D Total 25.7 NG/ML (30.0-100.0) L 12/14/17 07:50 Free T4 1.10 ng/dL (0.78-2.19) 12/11/17 07:48 TSH 3rd Generation 2.74 mIU/L (0.46-4.68) 12/11/17 07:48 PTH w/Ion &Tot Calcium 77 pg/mL (14-64) H 12/14/17 07:50 Urine Color Straw (YELLOW) 12/11/17 03:23 Urine Clarity Clear (Clear) 12/11/17 03:23 Urine pH 6.0 (5.0-8.0) 12/11/17 03:23 Ur Specific [place] 1.009 (1.003-1.030) 12/11/17 03:23 Urine Protein Negative mg/dL (NEGATIVE) 12/11/17 03:23 Urine Glucose (UA) 2+ mg/dL (Normal) H 12/11/17 03:23 Urine Ketones Negative mg/dL (NEGATIVE) 12/11/17 03:23 Urine Blood Negative (NEGATIVE) 12/11/17 03:23 Urine Nitrate Negative (NEGATIVE) 12/11/17 03:23 Urine Bilirubin Negative (NEGATIVE) 12/11/17 03:23 Urine Urobilinogen Normal mg/dL (0.2-1.0) 12/11/17 03:23 Ur Leukocyte Esterase Neg Dawna/uL (Negative) 12/11/17 03:23 Urine WBC (Auto) < 1 /hpf (0-5) 12/11/17 03:23 Ur Random Creatinine 76.6 mg/dL 12/11/17 19:52 Ur Random Sodium 32 mmol/L 12/11/17 19:52 Ur Random Urea Nitrogn 787 mg/dL 12/11/17 20:28 Hepatitis A IgM Ab Negative (NEGATIVE) 12/11/17 07:48 Hep Bs Antigen Negative (NEGATIVE) 12/11/17 07:48 Hep B Core IgM Ab Negative (NEGATIVE) 12/11/17 07:48 Hepatitis C Antibody Negative (NEGATIVE) 12/11/17 07:48 HIV 1&2 Ag/Ab, 4th Gen Nonreactive (Nonreactive) 12/11/17 07:48 Influenza Typ A,B (EIA) Negative for flu a/b (NEGATIVE) 12/11/17 01:46 H.influenzae Type B Ag Negative (NEGATIVE) 12/11/17 01:46 Ur L.pneumophila Ag Negative (NEGATIVE) 12/11/17 01:46 Mycoplasma pneumon IgG 1.83 (<=0.90) H 12/11/17 03:13 Mycoplasma pneumon IgM 95 U/mL (<770) 12/11/17 03:13 N.meningitidis ACY/W135 Negative (NEGATIVE) 12/11/17 01:46 N.meningi B/E.coli K1 Ag Negative (NEGATIVE) 12/11/17 01:46 Group B Strep Antigen Negative (NEGATIVE) 12/11/17 01:46 S. pneumoniae Antigen Negative (NEGATIVE) 12/11/17 01:46 - Hospital Course Hospital Course: HPI (As per admission) 82 year old female with past medical history of Hypothyroid; HTN; Gastritis; Diverticulosis presents to the ER with lung pain. Patient states for the past 5 days she has had pain in her back that went to her lungs. She states the last couple of months she started to have shortness of breath at rest. She normally has shortness of breath on exertion but at rest is a new occurrence. She states she took Tylenol for her lung and back pain today with no relief. Patient saw PMD earlier today who gave her Aizthromycin 250mg and methylprednisolone pack but she did not start it because her breathing did not improve so she came to the ER. Later this evening she states she started having difficulty breathing so she came to the ER. She states she normally sleeps with 3 pillows as she cannot sleep flat because she will have difficulty breathing. She has chronic lower extremity swelling. She denies nausea, vomiting, fever, chills, cough, diarrhea, constipation or dysuria. Hospital Course: Patient was admitted with the diagnosis of acute CHF exacerbation with underlying pneumonia. Over the course of admission, patient was noted to have a NSTEMI due to positive BLANK x3, although down trending and noted T -wave abnormalities in the lateral wall. Interventional Cardiology, Dr. Reece was consulted, who made appropriate recommendation for medical management for NSTEMI and cardiac catherization on DAY 3 of admission. Patient was completely without chest pain over the course of admission. On 12/14/17, patient had a cardiac catherization by Dr. 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 Subsequently, patient was transferred from telemetry to ICU post cardiac catherization, all medical management was resumed expect for plavix. Furthermore, arrangement was made for patient to be transferred to [facility] for possible CABG. Upon transfer , patient remained clinically stable without any acute issues. Pertinent studies: BLANK positive X4, down trendin.2100--> 1.6900-->1.2100-->0.2780 EKG: Lateral wall ischemia ( T-wave abnormalities) HgbA1C: 6.2 Lipid Panel: TGL:131, Chol:205, LDL: 127 and HDL: 61 TSH: 2.74 and Free T4: 1.10 Echocardiogram: LV is normal. LVEF within normal range. No regional wall abnormalities. Grade 1 abnormal relaxation suggestive of diastolic heart failure. For a complete impression, please refer to the EMR Cardiac catherization (12/14/17): L Main and Triple vessel disease This is a brief summary of events. For a complete course, please refer to the medical records. Discharge Exam - Head Exam Head Exam: NORMAL INSPECTION, NORMOCEPHALIC - Eye Exam Eye Exam: EOMI, Normal appearance - ENT Exam ENT Exam: Mucous Membranes Moist - Respiratory Exam Respiratory Exam: Decreased Breath Sounds, Clear to PA & Lateral. absent: Prolonged Expiratory Phase, Rales, Rhonchi - Cardiovascular Exam Cardiovascular Exam: REGULAR RHYTHM, +S1, +S2 - GI/Abdominal Exam GI & Abdominal Exam: Normal Bowel Sounds, Soft. absent: Diminished Bowel Sounds , Hyperactive Bowel Sounds, Hypoactive Bowel Sounds, Tenderness - Extremities Exam Extremities exam: normal inspection - Neurological Exam Neurological exam: Alert, Oriented x3 - Psychiatric Exam Psychiatric exam: Normal Affect - Skin Skin Exam: Normal Color Discharge Plan - Follow Up Plan Condition: GUARDED Disposition: Trans to Other Acute Care Hosp Instructions: Smoking: Not Just Harmful to Your Lungs and Heart, Heart Failure , Adult (DC), Pneumonia, Adult (DC), Chest Pain (DC), Hyperglycemia, Adult (DC) , Quitting Smoking Referrals: Jett Huang MD [Staff Provider] - Micheal Reece MD [Staff Provider] - Gabriel Woodward MD [Staff Provider] - <Joaquín Horton - Last Filed: 12/15/17 18:37> Provider - Provider Date of Admission: 12/11/17 01:31 Attending physician: Joaquín Horton DO Hospital Course - Lab Results Lab Results: Micro Results 12/11/17 00:25 Blood Blood Culture - Preliminary NO GROWTH AFTER 4 DAYS 12/11/17 07:48 Blood Blood Culture - Preliminary NO GROWTH AFTER 4 DAYS Most Recent Lab Values WBC 7.4 K/uL (4.8-10.8) 12/15/17 07:10 RBC 3.17 Mil/uL (3.80-5.20) L 12/15/17 07:10 Hgb 9.6 g/dL (11.0-16.0) L 12/15/17 07:10 Hct 28.1 % (34.0-47.0) L 12/15/17 07:10 MCV 88.8 fL (81.0-99.0) 12/15/17 07:10 MCH 30.2 pg (27.0-31.0) 12/15/17 07:10 MCHC 34.0 g/dL (33.0-37.0) 12/15/17 07:10 RDW 14.2 % (11.5-14.5) 12/15/17 07:10 Plt Count 236 K/uL (130-400) 12/15/17 07:10 MPV 7.6 fL (7.2-11.7) 12/15/17 07:10 Neut % (Auto) 53.7 % (50.0-75.0) 12/15/17 07:10 Lymph % (Auto) 33.6 % (20.0-40.0) 12/15/17 07:10 Snyder % (Auto) 7.4 % (0.0-10.0) 12/15/17 07:10 Eos % (Auto) 4.2 % (0.0-4.0) H 12/15/17 07:10 Baso % (Auto) 1.1 % (0.0-2.0) 12/15/17 07:10 Neut # (Auto) 4.0 K/uL (1.8-7.0) 12/15/17 07:10 Lymph # (Auto) 2.5 K/uL (1.0-4.3) 12/15/17 07:10 Snyder # (Auto) 0.6 K/uL (0.0-0.8) 12/15/17 07:10 Eos # (Auto) 0.3 K/uL (0.0-0.7) 12/15/17 07:10 Baso # (Auto) 0.1 K/uL (0.0-0.2) 12/15/17 07:10 Neutrophils % (Manual) 88 % (50-75) H 12/11/17 07:48 Lymphocytes % (Manual) 9 % (20-40) L 12/11/17 07:48 Monocytes % (Manual) 2 % (0-10) 12/11/17 07:48 Platelet Estimate Normal (NORMAL) 12/11/17 07:48 Giant Platelets Present 12/11/17 07:48 Hypochromasia (manual) Slight 12/11/17 07:48 Poikilocytosis (manual Slight 12/11/17 07:48 Anisocytosis (manual) Slight 12/11/17 07:48 PT 11.3 SECONDS (9.7-12.2) 12/11/17 00:48 INR 1.0 12/11/17 00:48 APTT 68 SECONDS (21-34) H D 12/15/17 07:10 Sodium 139 mmol/L (132-148) 12/15/17 07:10 Potassium 4.0 mmol/L (3.6-5.2) 12/15/17 07:10 Chloride 107 mmol/L (98-107) 12/15/17 07:10 Carbon Dioxide 27 mmol/L (22-30) 12/15/17 07:10 Anion Gap 9 (10-20) L 12/15/17 07:10 BUN 16 mg/dL (7-17) 12/15/17 07:10 Creatinine 1.0 mg/dL (0.7-1.2) 12/15/17 07:10 Est GFR ( Amer) > 60 12/15/17 07:10 Est GFR (Non-Af Amer) 53 12/15/17 07:10 POC Glucose (mg/dL) 120 mg/dL (65-110) H 12/15/17 11:11 Random Glucose 109 mg/dL (65-105) H 12/15/17 07:10 Hemoglobin A1c 6.2 % (4.2-6.5) 12/11/17 07:48 Calcium 8.6 mg/dl (8.6-10.4) 12/15/17 07:10 Phosphorus 3.2 mg/dL (2.5-4.5) 12/15/17 07:10 Magnesium 2.2 mg/dL (1.6-2.3) 12/15/17 07:10 Iron 85 ug/dL (37-170) 12/14/17 07:50 TIBC 274 ug/dL (250-450) 12/14/17 07:50 % Saturation 31.0 (20-55) 12/14/17 07:50 Ferritin 72.2 ng/mL 12/14/17 07:50 Total Bilirubin 0.4 mg/dL (0.2-1.3) 12/15/17 07:10 AST 43 U/L (14-36) H 12/15/17 07:10 ALT 61 U/L (9-52) H 12/15/17 07:10 Alkaline Phosphatase 64 U/L (38-126) 12/15/17 07:10 Total Creatine Kinase 40 U/L (30-135) 12/13/17 11:16 CK-MB (Mass) 1.62 ng/mL (0.0-3.38) 12/13/17 11:16 Troponin I 0.2780 ng/mL (0.00-0.120) H* 12/13/17 11:16 NT-Pro-B Natriuret Pep 5430 pg/mL (0-900) H 12/11/17 00:48 Total Protein 6.5 g/dL (6.3-8.3) 12/15/17 07:10 Albumin 3.4 g/dL (3.5-5.0) L 12/15/17 07:10 Globulin 3.1 gm/dL (2.2-3.9) 12/15/17 07:10 Albumin/Globulin Ratio 1.1 (1.0-2.1) 12/15/17 07:10 Triglycerides 131 mg/dL (0-149) 12/11/17 07:48 Cholesterol 205 mg/dL (0-199) H 12/11/17 07:48 LDL Cholesterol Direct 127 mg/dL (0-129) 12/11/17 07:48 HDL Cholesterol 61 mg/dL (30-70) 12/11/17 07:48 Lipase 113 U/L (23-300) 12/11/17 00:48 25-OH Vitamin D Total 25.7 NG/ML (30.0-100.0) L 12/14/17 07:50 Free T4 1.10 ng/dL (0.78-2.19) 12/11/17 07:48 TSH 3rd Generation 2.74 mIU/L (0.46-4.68) 12/11/17 07:48 PTH w/Ion &Tot Calcium 77 pg/mL (14-64) H 12/14/17 07:50 Urine Color Straw (YELLOW) 12/11/17 03:23 Urine Clarity Clear (Clear) 12/11/17 03:23 Urine pH 6.0 (5.0-8.0) 12/11/17 03:23 Ur Specific [place] 1.009 (1.003-1.030) 12/11/17 03:23 Urine Protein Negative mg/dL (NEGATIVE) 12/11/17 03:23 Urine Glucose (UA) 2+ mg/dL (Normal) H 12/11/17 03:23 Urine Ketones Negative mg/dL (NEGATIVE) 12/11/17 03:23 Urine Blood Negative (NEGATIVE) 12/11/17 03:23 Urine Nitrate Negative (NEGATIVE) 12/11/17 03:23 Urine Bilirubin Negative (NEGATIVE) 12/11/17 03:23 Urine Urobilinogen Normal mg/dL (0.2-1.0) 12/11/17 03:23 Ur Leukocyte Esterase Neg Dawna/uL (Negative) 12/11/17 03:23 Urine WBC (Auto) < 1 /hpf (0-5) 12/11/17 03:23 Ur Random Creatinine 76.6 mg/dL 12/11/17 19:52 Ur Random Sodium 32 mmol/L 12/11/17 19:52 Ur Random Urea Nitrogn 787 mg/dL 12/11/17 20:28 Hepatitis A IgM Ab Negative (NEGATIVE) 12/11/17 07:48 Hep Bs Antigen Negative (NEGATIVE) 12/11/17 07:48 Hep B Core IgM Ab Negative (NEGATIVE) 12/11/17 07:48 Hepatitis C Antibody Negative (NEGATIVE) 12/11/17 07:48 HIV 1&2 Ag/Ab, 4th Gen Nonreactive (Nonreactive) 12/11/17 07:48 Influenza Typ A,B (EIA) Negative for flu a/b (NEGATIVE) 12/11/17 01:46 H.influenzae Type B Ag Negative (NEGATIVE) 12/11/17 01:46 Ur L.pneumophila Ag Negative (NEGATIVE) 12/11/17 01:46 Mycoplasma pneumon IgG 1.83 (<=0.90) H 12/11/17 03:13 Mycoplasma pneumon IgM 95 U/mL (<770) 12/11/17 03:13 N.meningitidis ACY/W135 Negative (NEGATIVE) 12/11/17 01:46 N.meningi B/E.coli K1 Ag Negative (NEGATIVE) 12/11/17 01:46 Group B Strep Antigen Negative (NEGATIVE) 12/11/17 01:46 S. pneumoniae Antigen Negative (NEGATIVE) 12/11/17 01:46 Attending/Attestation - Attestation I have personally seen and examined this patient.: Yes I have fully participated in the care of the patient.: Yes I have reviewed all pertinent clinical information, including history, physical exam and plan: Yes Notes (Text): 12/15/17 18:35 Medical attending: Patient was seen and examined by me. Agree with the above note by the resident The patient is pending transfer to [facility] for potential CABG surgery. The cardiac catherization done here showed there was multivessel disease and left main disease. thank you Joaquín Horton
--- NOTE | 2017-12-16 12:16 | CARD ---
APPROVED REPORT EKG Measurement Heart [id number] <Conclusion> Normal sinus rhythm T wave abnormality, consider anterior ischemia Prolonged QT Abnormal ECG
== END 2017-12-15 13:10 | disposition short-term general hospital (02) | DRG 280 ==
LOC: C.ER 00:05 → C.5S 01:31 → C.9I 12-14 17:36
PROVIDERS: ADMIT Hospitalist; ATTEND Hospitalist
PROC: B211YZZ Fluoroscopy of Multiple Coronary Arteries using Other Contrast (ICD-10-PCS; 2017-12-14)
PROC: B215YZZ Fluoroscopy of Left Heart using Other Contrast (ICD-10-PCS; 2017-12-14)
PROC: 4A023N7 Measurement of Cardiac Sampling and Pressure, Left Heart, Percutaneous Approach (ICD-10-PCS; principal; 2017-12-14 14:00)
DX: I21.4 Non-ST elevation (NSTEMI) myocardial infarction (principal); I50.33 Acute on chronic diastolic (congestive) heart failure; J18.9 Pneumonia, unspecified organism; I13.0 Hypertensive heart and chronic kidney disease with heart failure and stage 1 through stage 4 chronic kidney disease, or unspecified chronic kidney disease; J44.0 Chronic obstructive pulmonary disease with (acute) lower respiratory infection; J44.1 Chronic obstructive pulmonary disease with (acute) exacerbation; E03.9 Hypothyroidism, unspecified; I25.10 Atherosclerotic heart disease of native coronary artery without angina pectoris; E78.5 Hyperlipidemia, unspecified; T42.6X5A Adverse effect of other antiepileptic and sedative-hypnotic drugs, initial encounter; R73.9 Hyperglycemia, unspecified; N18.3 Chronic kidney disease, stage 3 (moderate); Z87.891 Personal history of nicotine dependence; E74.39 Other disorders of intestinal carbohydrate absorption; N28.9 Disorder of kidney and ureter, unspecified